=== PATIENT | female | born 1965 | race Caucasian/White ===

== ENCOUNTER 2017-04-02 07:10 | Inpatient (IN) | payer MEDICAID, SELFPAY ==
[2017-04-02] VITALS (9 sets, daily range): BP systolic 129–157; BP diastolic 76–113; PULSE 84–105; RESP 18–22; TEMP 36.7–39.3; O2SAT 92–98; BMI 25.8; BMI 27.4; BMI 27.5
--- NOTE | 2017-04-02 07:21 | RAD_ITS ---
STUDY: X-RAY CHEST REASON FOR EXAM: Female, 51 years old. Fever, chills and cough. TECHNIQUE: PA and lateral views of the chest. COMPARISON: Comparison is made with prior study dated March 19, 2017. FINDINGS: Hyperinflation. No acute infiltrate is seen. There is no demonstrated pleural abnormality. Normal size heart. Normal mediastinum and ayaz. Normal visualized pulmonary arteries. Normal visualized aortic arch and descending thoracic aorta. There are mild degenerative changes of the visualized thoracic spine. Healed left rib fractures. There is no demonstrated abnormality of the visualized soft tissue structures of the upper abdomen. RAD/Chest PA and Lateral IMPRESSION: Hyperinflation. The lungs are clear. Electronically Signed: Mono Rosas MD at 8:39 EST Tel [phone], Service support ,
[2017-04-02] MEDS: Acetaminophen 325 MG Tablet 650 MG PO ×2 (07:33→16:53)
--- NOTE | 2017-04-02 07:37 | ED.DCSUM_ITS ---
- ER Visit Summary Date of Service: 04/02/17 Chief Complaint: Right-sided abdominal pain with fever, chills and sweats History of Present Illness: The patient is a 51 F who was seen on March 19 and last evening April 01. She presented on March 19 for diarrhea and abdominal pain. She was admitted for possible colitis versus cancer versus other etiology of her abdominal pain. Yesterday she presented with severe right -sided bowel pain after coughing. There were no acute findings compared to CAT scan dated March 19. She complains of vague headache. She denies rhinorrhea, earache or sore throat. Does complain of slight cough. She is a smoker. Her cough is nonproductive. She does complain of nausea without vomiting, diarrhea or constipation. She localizes the pain to the right side. It is not midline. She denies dysuria, frequency, urgency or hematuria. She states the diarrhea has stopped. She is scheduled colonoscopy by Dr. hernandez to evaluate the circumferential rectal wall thickening. Physical Examination: Patient has chills. He is covered with a blanket. Vital signs are remarkable for a temperature of 100.2, heart rate of 105 and blood pressure of 154/113. HEENT exam is remarkable for poor dentition and dry mucosa. Her HEENT exam is otherwise unremarkable. Heart is rapid and regular without murmur, gallop or rub. Lungs revealed bibasilar rales that cleared with coughing. There is no wheezing or rhonchi noted. Abdominal exam is remarkable for a reducible midline ventral hernia that was noted on CAT scan. She has no tenderness in the right upper quadrant. She has no tenderness in the right lower quadrant. There is no CVA tenderness. No dermatologic lesions were noted. Lower extremity exam reveals no swelling, discoloration, leg vein distention, palpable cords or asymmetry. Test Results: Count is 20.4 thousand with 89 segs no bands. Platelet count is 948,000. Electrode panel is normal. UA is unremarkable. Lactate 1.1. Emergency Department Course and Treatment: To evaluate patient's fever chills cough a CBC, BMP and chest x-ray obtained. Because she complains of right lower quadrant abdominal pain and CAT scan revealed renal stone will obtain a UA. Treatment Plan: Case was discussed with Dr. Majano. She requested admission to the hospitalist service. She requested n.p.o. after midnight. Agreed with Zosyn IV piggyback. She also requested antibiotics prior to antibiotics. Plan is to perform colonoscopy tomorrow. Disposition: Med/surgical unit on the hospitalist service with consultation to Dr. Majano. Impression: 1. Abdominal pain with leukocytosis 2. Rectal/sigmoid wall thickening of uncertain etiology 3. History of illicit drug use 4. History of alcohol use 5. History of hypertension 6. History of bipolar affective disorder This note was generated with [employer] dictation software. It may contain incorrect words, spelling, and punctuation that were not noted in review of the chart prior to signing ED Disposition - Plan for ED Patient: Chief Complaint: Abd Pain Referrals: Kevin Rodriguez DO [Primary Care Provider] -
[2017-04-02] MEDS: Ketorolac 30 MG/ML Syringe IV (07:52)
[2017-04-02 07:55] LABS: Anion Gap 10 (5-15); BUN 9 mg/dL (7-18); BUN/Creat Ratio 11.5 RATIO (10-20); Calcium,Total 8.5 mg/dL (8.5-10.1); Chloride 101 mmol/L (98-107); Creatinine, Serum 0.79 mg/dL (0.55-1.02); EST Glomerular Filtration Rate 81 mL/min (>60); Est Glom Filt Rate - Afr Amer 98 mL/min (>60); Estimated Creatinine Clearance 83.08 ml/min; Glucose 104 mg/dL (70-110); Potassium 3.7 mmol/L (3.5-5.1); Sodium Level 136 mmol/L (136-145)
[2017-04-02 08:08] LABS: Lactic Acid 1.1 mmol/L (0.4-2.0)
[2017-04-02 09:05] LABS: Bacteria 0 SEEN /hpf (None Seen); Mucous, Urine 0 SEEN /hpf (<or=2+); Red Blood Cells-Urine 0 SEEN /hpf (0-5)
[2017-04-02 09:10] LABS: Color, Urine Yellow (Yellow); Glucose, Dipstick Normal (Normal); Ketone-Dipstick Negative (Negative); Leukocyte Esterase-Dipstick 25 /ul (Negative); Nitrite-Dipstick Negative (Negative); Occult Blood-Urine 10 /ul (Negative); Protein-Dipstick Negative (Negative); Urine Bilirubin Dipstick Negative (Negative); Urine Clarity Clear (Clear); Urine Urobilinogen Normal (Normal)
[2017-04-02 09:11] LABS: Squamous Epithelial Cells - UA 0-5 SEEN /hpf (5-10); White Blood Cells 0-5 SEEN /hpf (0-5)
[2017-04-02 09:55] LABS: Absolute Lymphocyte Count 0.93 X10^3/ul (0.83-4.51); Absolute Neutrophil Count 18.1 X10^3/uL (2.0-7.7); Basophil# 0.04 X10^3/uL; Basophil% 0.2 % (0-1); Eosinophil# 0.03 X10^3/uL; Eosinophils% 0.1 % (0-5); Hematocrit 34.6 % (37-47); Hemoglobin 10.3 g/dl (12.0-15.0); Lymphocyte # 0.93 X10^3/ul (4.0); Lymphocyte % 4.6 % (19-41); Mean Corp Hgb Conc 29.8 g/gl (32-36); Mean Corpuscular Hgb 19.9 pg (27.0-32.0); Mean Corpuscular Volume 66.9 fL (81-99); Mean Platelet Vol. 9.3 fl (6.2-12.0); Monocyte# 1.26 X10^3/uL; Monocyte% 6.2 % (0-10); Neutrophil # 18.12 X10^3/uL (2.7-7.7); Neutrophil % 88.7 % (47-70); RBC Distribution Width CV 18.1 % (11.6-14.6); RBC Distribution Width SD 43.4 fl (35.1-43.9); Red Blood Count 5.17 M/mm3 (4.2-5.4); White Blood Count 20.4 K/mm3 (4.4-11.0)
[2017-04-02 09:59] LABS: Differential Indicated SCAN CRITERIA MET; Platelet Count 948 K/mm3 (150-450)
[2017-04-02 10:00] LABS: Differential Comment THROMBOCYTOSIS
--- NOTE | 2017-04-02 12:02 | HP.PCM_ITS ---
Problem List (1) Microcytic anemia Status: Chronic (2) Colonic mass Status: Chronic (3) Benign essential hypertension Status: Chronic (4) Bipolar disorder Status: Chronic Qualifiers: Active/Remission status: remission status unspecified Qualified Code(s): F31.9 - Bipolar disorder, unspecified (5) Polysubstance abuse Status: Chronic (6) Tobacco use Status: Chronic History of Present Illness Date of Admission: 04/02/17 Chief Complaint: Abdominal pain The patient is a 51 y/o F w/ PMHx: Hypertension, Bipolar Disorder, Hx Polysubstance abuse (Clean for several years), Tobacco use, Living at the [facility] w/ history of ongoing rectal discomfort w/ sensation of constipation, incomplete emptying starting ~ 12/2016, intermittent blood tinged stools starting ~ 01/2017 with history of ongoing ongoing usage of laxatives and stool softners secondary to difficulties with intermittent abdominal pain with low grade temperatures, recently evaluated 03/19/17-03/20/17 for the same presentation w/ discharge to home on cipro/flagyl oral regimen w/ outpatient planned c-scope for Bx who now returns to the [facility] ED on 04/02/17 as well as the evening prior with similar complaints of ongoing abdominal discomfort, discomfort w/ her hernia, ongoing stool changes as well as intermittent blood tinged stools. In the ED work-up included T 100.2, HR 105-->99, BP 154/113-->149 /78, RR 18, 97% on RA, CBC w/ WBC 20.4 (increased from prior admission), Hgb 10.3, Plts 948 with L shift, BMP unremarkable, LA 1.1, UA unremarkable, Bld Cx x 2 obtained and pending, CT A/P without contrast from evening prior 04/01/17 w/ stable circumferential wall thickening in the rectum with differential diagnosis including neoplasm and proctitis, no perirectal fluid collection, 1.5 cm low-density lesion right hepatic lobe, nonobstructing right renal colliculi, bilateral renal cysts, epigastric abdominal wall hernia containing fat, small periumbilical hernia. In the emergency room patient administered ciprofloxacin , metronidazole, morphine, Toradol, Tylenol, normal saline. Dr. Majano, surgery, who evaluated patient prior was contacted per ED with noted plan for coloscopy. Past Medical History Past Medical History (Chronic Problems): Chronic Problems Microcytic anemia (Chronic) Colonic mass (Chronic) Benign essential hypertension (Chronic) Bipolar disorder (Chronic) Polysubstance abuse (Chronic) Tobacco use (Chronic) Allergies bee venom protein (honey bee) Allergy (Verified 04/01/17 17:14) Anaphylaxis codeine Allergy (Verified 04/01/17 17:14) Anaphylaxis Penicillins Allergy (Verified 04/01/17 17:14) Unknown Home Medications: Ambulatory Orders Medication Instructions Recorded Dicyclomine HCl [Bentyl] 20 mg PO TIDAC #20 capsule 02/18/17 Lidocaine 2% Jelly [Xylocaine 2% 5 ml TOPICAL 4X/DAY #10 tube 02/18/17 Jelly] Magnesium Citrate [Citrate Of 300 ml PO X1 #300 ml 02/18/17 Magnesia] Surgical History: - - Bilateral tubal ligation, history of trauma with severe fall with 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 - *Family History Maternal History Items: - - Notes a maternal family history of cancer and she states history of brain tumor as well as lung tumor with unclear primary. Paternal History Items: No pertinent history Review of Systems Constitutional: Reports: Malaise, Weakness, Fatigue. Denies: Chills, Fever, Weight Change HEENT: Reports: Sinus Congestion. Denies: Head Aches, Sinus Drainage Cardiovascular: Denies: Chest Pain, Palpitations Respiratory: Denies: Cough, Shortness of breath at rest, Sputum production Gastrointestinal: Reports: Abdominal Pain, Constipation, Diarrhea, - - Blood tinged stools., - - Ongoing rectal pain.. Denies: Nausea, Vomiting Genitourinary: Denies: Dysuria Musculoskeletal: Denies: Joint Pain, Joint Tenderness Skin: Denies: Rash, Wounds Neurological: Denies: Numbness, Tingling, Focal weakness Psychiatric: Reports: Anxiety, Depression. Denies: Homicidal Ideations, Suicidal Ideations Hematologic/ Lymphatic: Reports: Anemia. Denies: Easy Bruising, Easy Bleeding VTE Information - Inpt Only VTE Present on Admission: No VTE Mechan Device Prophylaxis: SCD's VTE Pharm Prophylaxis ordered?: No Reason prophylaxis not ordered:: Medical Contraindication Subjective: Seated upright in bed, notes ongoing mild abdominal cramping pain. Objective: Physical Examination: General: awake, alert, oriented x 3 and cooperative, seated upright in the bed in no apparent distress. Skin: normal color, turgor, no icterus, cyanosis except diffuse facial and extremity picked regions, healing, non-infected appearing. HEENT: AT/NC, EOMI, PERRLA, dry MM, no carotid bruits or JVD noted. Lungs: Diminished breath sounds bilaterally, greater bases, moderate effort, no rales, ronchi or wheezing. Heart: regular rate and rhythm; no gallop, rub audible. Abdomen: soft, overweight, NTTP despite current cramping pain complaint, ND, normal BS, no HSM however habitus makes examination difficult. Extremities: no cyanosis, clubbing, or edema. Neurological: patient awake, alert, oriented x 3; cognitive function intact; pupils equally reactive to light and accomodation; cranial nerves II-XII grossly normal, moving all 4 extremities, no focal deficits, strength moderately globally decreased secondary to acute presentation. Psychiatric: affect appears normal, no acute evidence of depressive or anxiety feelings. - Physical Exam Vital Signs Temp Pulse Resp BP Pulse Ox 98.1 F 84 18 157/76 H 97 04/02/17 10:41 04/02/17 10:41 04/02/17 10:41 04/02/17 10:41 04/02/17 10:41 Oxygen Delivery Method Room Air Weight: 170 lb Body Mass Index (BMI) 25.8 Laboratory Tests Past 24 Hrs 04/02/17 04/02/17 04/02/17 07:25 07:25 07:25 WBC 20.4 H RBC 5.17 Hgb 10.3 L Hct 34.6 L MCV 66.9 L MCH 19.9 L MCHC 29.8 L RDW 18.1 H RDW Differential 43.4 Plt Count 948 H* MPV 9.3 Immature Gran % (Auto) 0.200 Neut % (Auto) 88.7 H Lymph % (Auto) 4.6 L [place] % (Auto) 6.2 Eos % (Auto) 0.1 Baso % (Auto) 0.2 Absolute Neuts (auto) 18.1 H Absolute Lymphs (auto) 0.93 Total Counted Pending Differential Comment THROMBOCYTOSIS Sodium 136 Potassium 3.7 Chloride 101 Carbon Dioxide 25.0 Anion Gap 10 BUN 9 Creatinine 0.79 Estim Creat Clear Calc 83.08 Est GFR (MDRD) Af Amer 98 Est GFR (MDRD) Non-Af 81 BUN/Creatinine Ratio 11.5 Glucose 104 Lactic Acid 1.1 Calcium 8.5 Urine Color Urine Clarity Urine pH Ur Specific [place] Urine Protein Urine Glucose (UA) Urine Ketones Urine Occult Blood Urine Nitrite Urine Bilirubin Urine Urobilinogen Ur Leukocyte Esterase Urine RBC Urine WBC Ur Squamous Epith Cells Urine Bacteria Urine Mucus 04/02/17 09:00 WBC RBC Hgb Hct MCV MCH MCHC RDW RDW Differential Plt Count MPV Immature Gran % (Auto) Neut % (Auto) Lymph % (Auto) [place] % (Auto) Eos % (Auto) Baso % (Auto) Absolute Neuts (auto) Absolute Lymphs (auto) Total Counted Differential Comment Sodium Potassium Chloride Carbon Dioxide Anion Gap BUN Creatinine Estim Creat Clear Calc Est GFR (MDRD) Af Amer Est GFR (MDRD) Non-Af BUN/Creatinine Ratio Glucose Lactic Acid Calcium Urine Color Yellow Urine Clarity Clear Urine pH 6.0 Ur Specific [place] 1.010 Urine Protein Negative Urine Glucose (UA) Normal Urine Ketones Negative Urine Occult Blood 10 H Urine Nitrite Negative Urine Bilirubin Negative Urine Urobilinogen Normal Ur Leukocyte Esterase 25 H Urine RBC 0 SEEN Urine WBC 0-5 SEEN Ur Squamous Epith Cells 0-5 SEEN Urine Bacteria 0 SEEN Urine Mucus 0 SEEN Assessment/Plan The patient is a 51 y/o F w/ PMHx: Hypertension, Bipolar Disorder, Hx Polysubstance abuse, Tobacco use, Living at the [facility] w/ recent admission 03/19/17-03/20/17 for the same presentation w/ discharge to home on cipro/flagyl oral regimen w/ outpatient planned c-scope for Bx who now returns to the [facility] ED on 04/02/17 as well as the evening prior with similar complaints of ongoing abdominal discomfort, discomfort w/ her hernia, ongoing stool changes as well as intermittent blood tinged stools. (1) ? Colitis, Suspected Rectal CA: Will admit to [facility], maintain on hydration, monitor I&Os, maintain NPO status w/ bowel rest, treat with cipro and flagyl regimen, PPI, anti-emetics, pain regimen PRN. Dr. Majano, Surgery consulted with planned c-scope evaluation and Bx mass. Given re-presentation and ongoing leukocytosis w/ ? colitis with elevated T, will also request ID evaluation. (2) Microcytic anemia, Unclear Chronicity, Fe Deficiency: Admission Hgb 10.3, stable from prior, discharged recently on Fe supplementation which will be continued, pending c-scope as noted. (3) Hypertension: Not on regimen, BP elevated upon ED presentation, will initiate low dose ACEI, PRN hydralazine. (4) Tobacco Abuse: Encouraged cessation, inpatient consultation per RT, NR if desired. (5) History of polysubstance abuse: Clean for approximately 5 years, encouraged continued clean status. (6) Bipolar disorder: not on regimen, encouraged outpatient therapy. (7) DVT prophylaxis: SCDs, defer chemoprophylaxis given anemia, GI presentation w/ pending endoscopy and likely Bx. (8) Social: Homeless status, CM consulted to assist to assure appropriate follow -up. Code Visit Inpatient E&M: 60243 Init Hosp L3
[2017-04-02 13:01] LABS: Lactic Acid 0.7 mmol/L (0.4-2.0)
--- NOTE | 2017-04-02 13:12 | CASEMGMT ---
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 Pt lives @ [facility], is Homeless. SW referral for dc planning. Nursing is in room w/pt then she will be going to testing. Pharmacy not listed, will need to confirm which pharmacy she uses. Jose DEAL BSN ACM
[2017-04-02] MEDS: Ondansetron 4 MG/2 ML Vial IV (13:45)
[2017-04-02] MEDS: 0.9% Normal Saline 1,000 ML 125 ML IV (13:46)
[2017-04-02] MEDS: Lisinopril 10 MG Tablet PO (13:53)
[2017-04-02] MEDS: oxyCODONE 5 MG Tablet PO (16:49)
[2017-04-02] MEDS: Pantoprazole Sodium 40 MG Tablet PO (16:51)
--- NOTE | 2017-04-02 17:05 | NURSING ---
DR PEREIRA ON UNIT AND UPDATED ON PT FEVER
--- NOTE | 2017-04-02 17:19 | CON.PCM_ITS ---
- Consult Date of Consult: 04/02/17 - Reason for Consult Chief Complaint: abdominal pain, rectal bleeding, change in bowel habits, fevers, elevated WBC History of Present Illness: 51 y/o WF presents with abdominal pain and thinks she has strained a hernia. I had seen patient on and had recommended colonoscopy. she did not want one at the time and wanted to spend the holiday with her friends and family. I had tried to get patient scheduled for outpatient colonoscopy, but due to her personal living situation, this was difficult. She presents with complaint of chills/fevers. Found to have elevated WBC. Still with rectal bleeding and irregular bowel movements. Past Medical History: Denies major medical illnesses such as hypertension or diabetes Past Surgical History: Exploratory laparotomy for blunt trauma - major artery cut in my stomach, almost , induced coma for 21 days - splenectomy, fracture of 9 ribs Tubes tied LEEP procedure Medications: tylenol prn phenergan prn oxyir flagyl cipro iron supplements Allergies: codeine penicillins Social history: TOB use 1-2 packs per day for 40 years, trying to quit - down to 1 pack every 3 -4 days ETOH use history of heavy ETOH abuse - cut down for the past 5 years Review of Systems: General - has noted low grade subjective temperature elevations, denies rigors Cardiovascular denies chest pain, denies history of NM Pulmonary has chronic cough, denies hemoptysis Gastrointestinal as per HPI Neurological denies seizures Genitourinary denies burning with urination, denies blood in urine Hematological denies spontaneous/prolonged bleeding, had blood transfusions with above trauma Skin denies open non healing wounds Musculoskeletal has had rib fractures Endocrine denies diabetes Psychological stressors - lives at [facility]! Physical examination: Vital signs Temp 100.4F RR 18 BP 152/102 HR 74 Ht: 5'8 Wt 179# General WD/WN WF in no apparent distress, alert and oriented HEENT Normocephalic. EOM intact with sclera clear and no icterus noted. Neck is supple with no jugular venous distention noted. Trachea is midline. Has sniffles Lungs normal breath sounds with some crackles at bases and periphery. No labored breathing noted, such as retractions. occasional cough. Heart normal heart sounds, regular rate Abdomen soft and benign but generalized tenderness in bilateral lower quadrants with no peritoneal signs noted. Healed midline abdominal incision - reducible incisional hernia to right lateral. Normal bowel sounds. Extremities no calf tenderness noted. No pitting edema noted. Genitourinary/Rectal palpable almost circumferential hard mass from level of anal canal extending a few centimeters proximally Skin normal skin integrity Neurological non focal Psychological normal affect, patient appears to be itching constantly WBC - 20k, Hct 34.8, Plt 661K, serum iron and saturation is low, LFTs normal , lactic acid normal Impression: rectal mass elevated WBC - unknown etiology Discussion/Plan: I have discussed the above with the patient. The patient has a rectal mass, concern for malignancy. I have recommended further evaluation with colonoscopy with biopsy. She had been scheduled as outpatient. I have counseled patient as to risks of colonoscopy, including but not limited to: infection, bleeding, injury to any blood vessels/nerves, injury to any intraabdominal organs such as liver/spleen, perforation of GI tract, complications of anesthesia, inabililty to complete the procedure, etc - she understands. She agrees to proceed. I have answered all questions to the patients satisfaction and the patient has no further questions.
[2017-04-02] MEDS: HYDROmorphone 1 MG/ML Syringe IV (20:44)
[2017-04-02] MEDS: 0.9% NaCl Peripheral Flush Adult/Peds IV (20:44)
[2017-04-02] MEDS: Ciprofloxacin 400 MG/200 ML BAG 200 MG IV (21:11)
[2017-04-02] MEDS: Electrolyte Solution/Peg's 4000 ML 2000 ML PO (21:13)
[2017-04-03] VITALS (11 sets, daily range): BP systolic 118–154; BP diastolic 71–98; PULSE 70–82; RESP 16–19; TEMP 36.3–37.6; O2SAT 94–97; BMI 28.2
--- NOTE | 2017-04-03 | COLBX_PTH ---
PATIENT: YONIS DAMON LOC: MS2 U#:[id number] AGE/SX: 51/F ROOM: [facility] [place]04/02/[address]: Dr. Natalee Mehta MD : 1965 BED: 1 DIS: 04/04/2017 SPEC #: [id number] RECD: 04/03/17 17:45 STATUS: LAMIN REQ #: [id number] AMADEO: 04/03/17 00:[address]: Aleena Majano DEPT: SURGICAL PATHOLOGY RECD BY: Tim Solares ENTERED: 04/04/17 10:25 SP TYPE: COLON BX OTHR DR: MD Dr. Kevin Larsen DO Dr. 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 AM:omar 04/07/17 MICROSCOPIC DESCRIPTION Slides are reviewed. GROSS DESCRIPTION Received in fixative is one container labeled with the patient's name and designated biopsy, rectal mass. The specimen consists of multiple irregular fragments of light green soft tissue that in aggregate measure 1 x 0.5 x 0.1 cm. The specimen is totally submitted in one cassette. / AM:omar 04/04/17 TC:0 CPT: 31938
[2017-04-03] MEDS: oxyCODONE 5 MG Tablet PO ×3 (01:00→21:50)
[2017-04-03] MEDS: Ondansetron 4 MG/2 ML Vial IV ×3 (01:00→21:50)
[2017-04-03] MEDS: 0.9% NaCl Peripheral Flush Adult/Peds IV ×6 (01:00→23:47)
[2017-04-03] MEDS: 0.9% Normal Saline 1,000 ML 125 ML IV ×3 (02:52→18:13)
[2017-04-03] MEDS: Electrolyte Solution/Peg's 4000 ML 2000 ML PO (05:07)
--- NOTE | 2017-04-03 06:00 | EKG12_ITS ---
Test Reason : Blood Pressure : / mmHG Vent. Rate : 072 BPM Atrial Rate : 072 BPM P-R Int : 172 ms QRS Dur : 104 ms QT Int : 440 ms P-R-T Axes : 065 085 067 degrees QTc Int : 481 ms Normal sinus rhythm Prolonged QT Abnormal ECG Confirmed by JASWANT MELLO, ANN ([id number]), bioinformatics software engineer DENI SWEENEY ([id number]) on 04/11/2017 3:20:45 PM Referred By: Confirmed By:ANN MICHAUD MD
--- NOTE | 2017-04-03 06:31 | PN_ITS ---
Subjective: Patient overnight with continued intermittent elevated temperatures and chills, improved mildly this morning. She notes ongoing abdominal cramping discomfort is worsened with GoLYTELY prep. Stressed importance of continued appropriate prep intake and if needed more prep addition if not running clear with plans colonoscopy late afternoon. She notes that she still is living at the [facility]. Patient denies emesis, chest pain or dyspnea Objective: Physical Examination: General: awake, alert, oriented x 3 and cooperative, seated upright in the bed in no apparent distress. Skin: normal color, turgor, no icterus, cyanosis except diffuse facial and extremity picked regions, healing, non-infected appearing. HEENT: AT/NC, EOMI, PERRLA, dry MM. Lungs: Diminished breath sounds bilaterally, greater bases, moderate effort, no rales, ronchi or wheezing. Heart: Regular rate and rhythm; no gallop, rub audible. Abdomen: soft, overweight, no marked pain with palpation, no grimacing, mildly distended, hyperactive BS distantly. Extremities: no cyanosis, clubbing, or edema. Neurological: patient awake, alert, oriented x 3; cognitive function intact; pupils equally reactive to light and accomodation; cranial nerves II-XII grossly normal, moving all 4 extremities, no focal deficits, strength moderately to severely globally decreased secondary to acute presentation. Psychiatric: affect appears normal, no acute evidence of depressive or anxiety feelings. Vitals/I&O's: Vital Signs Temp Pulse Resp BP Pulse Ox 97.3 F L 82 18 130/77 H 96 04/03/17 02:45 04/03/17 02:45 04/03/17 02:45 04/03/17 02:45 04/03/17 02:58 Oxygen Delivery Method Room Air Weight: 185 lb 10.067 oz Body Mass Index (BMI) 27.4 Intake and Output for Last 24 Hours 04/01/17 04/02/17 04/03/17 23:59 23:59 23:59 Intake Total 5157 / 5157 836 / 836 Output Total 200 / 200 Balance 4957 / 4957 836 / 836 Laboratory Results 04/02/17 12:20: Lactic Acid 0.7 04/03/17 05:52: WBC Pending, RBC Pending, Hgb Pending, Hct Pending, MCV Pending , MCH Pending, MCHC Pending, RDW Pending, RDW Differential Pending, Plt Count Pending, Neut % (Auto) Pending, Absolute Neuts (auto) Pending, Total Counted Pending 04/03/17 05:52: Sodium Pending, Potassium Pending, Chloride Pending, Carbon Dioxide Pending, Anion Gap Pending, BUN Pending, Creatinine Pending, Est GFR ( MDRD) Af Amer Pending, Est GFR (MDRD) Non-Af Pending, BUN/Creatinine Ratio Pending, Glucose Pending, Calcium Pending Current Medications Acetaminophen (Tylenol) 650 mg PO Q6H PRN PRN PRN Reason: Mild Pain (scale 0-3)/T>100.7 Last Admin: 04/02/17 16:53 Dose: 650 mg [facility] Last Admin: 04/02/17 16:50 Dose: Not Given Hydralazine HCl (Apresoline) 10 mg IV Q4H PRN PRN PRN Reason: SBP > 160 Hydromorphone HCl (Dilaudid) 0.5 - 1 mg IV Q3H PRN PRN PRN Reason: SEVERE PAIN (6-10/10) Last Admin: 04/02/17 20:44 Dose: 1 mg Sodium Chloride () 1,000 mls @ 125 mls/hr IV .Q8H [facility] Last Admin: 04/03/17 02:52 Dose: 125 mls/hr Ciprofloxacin (Cipro) 400 mg in 200 mls @ 200 mls/hr IV Q12 [facility] Last Admin: 04/02/17 21:11 Dose: 200 mls/hr Metronidazole (Flagyl) 500 mg in 100 mls @ 100 mls/hr IV Q8H [facility] Last Admin: 04/03/17 05:07 Dose: 100 mls/hr Lisinopril (Zestril) 10 mg PO DAILY [facility] Last Admin: 04/02/17 13:53 Dose: 10 mg Magnesium Hydroxide (Milk Of Magnesia) 30 ml PO DAILY PRN PRN PRN Reason: Constipation Morphine Sulfate (Morphine) 4 - 6 mg IV Q3H PRN PRN PRN Reason: SEVERE PAIN (6-10/10) Last Admin: 04/03/17 05:06 Dose: 4 mg Nicotine (Nicoderm Cq (Pbkc)) 21 mg TRANSDERM. DAILY [facility] Last Admin: 04/02/17 16:50 Dose: 21 mg Ondansetron HCl (Zofran) 4 mg IV Q8H PRN PRN PRN Reason: Nausea Last Admin: 04/03/17 01:00 Dose: 4 mg Oxycodone HCl (Oxyir) 5 - 10 mg PO Q4H PRN PRN PRN Reason: Moderate Pain (pain scale 4-5) Last Admin: 04/03/17 01:00 Dose: 10 mg Pantoprazole Sodium (Protonix) 40 mg PO DAILY TO Last Admin: 04/02/17 16:51 Dose: 40 mg Sodium Chloride () 5 - 30 ml IV UD PRN PRN Reason: SALINE FLUSH Last Admin: 04/03/17 05:07 Dose: 10 ml Sodium Chloride/Electrolytes (Nulytely) 2,000 ml PO Q9H TO Stop: 04/03/17 08:00 Last Admin: 04/03/17 05:07 Dose: 2,000 ml Assessment/Plan The patient is a 51 y/o F w/ PMHx: Hypertension, Bipolar Disorder, Hx Polysubstance abuse, Tobacco use, Living at the [facility] w/ recent admission 03/19/17-03/20/17 for the same presentation w/ discharge to home on cipro/flagyl oral regimen w/ outpatient planned c-scope for Bx who now returns to the [facility] ED on 04/02/17 as well as the evening prior with similar complaints of ongoing abdominal discomfort, discomfort w/ her hernia, ongoing stool changes as well as intermittent blood tinged stools. (1) ? Colitis, Suspected Rectal CA: Admitted to [facility], maintained on hydration, monitor I&Os, maintain NPO status w/ bowel rest for planned c-scope today, continue cipro and flagyl regimen, PPI, anti-emetics, pain regimen PRN. Dr. Majano , Surgery consulted with planned c-scope evaluation this AM w/ Bx mass. Tm overnight 102.7, Bld Cx pending. ID consulted, pending given atypical presentation. 04/03/17 CBC w/ WBC 12 with shift. (2) Microcytic anemia, Unclear Chronicity, Fe Deficiency: Admission Hgb 10.3, stable from prior, discharged recently on Fe supplementation, continued, pending c-scope as noted. 04/03/17 Hgb pending. (3) Hypertension: Not on regimen, BP elevated upon ED presentation, initiated low dose ACEI, improved BP, PRN hydralazine. (4) Tobacco Abuse: Encouraged cessation, inpatient consultation per RT, NR if desired. (5) History of polysubstance abuse: Clean for approximately 5 years, encouraged continued clean status. (6) Bipolar disorder: not on regimen, encouraged outpatient therapy. (7) DVT prophylaxis: SCDs, defer chemoprophylaxis given anemia, GI presentation w/ pending endoscopy and likely Bx. (8) Social: Homeless status, CM consulted to assist to assure appropriate follow -up. Code Visit Inpatient E&M: 41692 Subs Hosp L2
[2017-04-03 06:39] LABS: Absolute Lymphocyte Count 2.01 X10^3/ul (0.83-4.51); Absolute Neutrophil Count 8.3 X10^3/uL (2.0-7.7); Basophil# 0.06 X10^3/uL; Basophil% 0.5 % (0-1); Eosinophil# 0.07 X10^3/uL; Eosinophils% 0.6 % (0-5); Hematocrit 29.8 % (37-47); Hemoglobin 8.9 g/dl (12.0-15.0); Lymphocyte # 2.01 X10^3/ul (4.0); Lymphocyte % 16.8 % (19-41); Mean Corp Hgb Conc 29.9 g/gl (32-36); Mean Corpuscular Hgb 19.8 pg (27.0-32.0); Mean Corpuscular Volume 66.2 fL (81-99); Mean Platelet Vol. 9.8 fl (6.2-12.0); Monocyte# 1.56 X10^3/uL; Neutrophil # 8.28 X10^3/uL (2.7-7.7); Neutrophil % 68.9 % (47-70); RBC Distribution Width CV 18.7 % (11.6-14.6); RBC Distribution Width SD 43.3 fl (35.1-43.9)
[2017-04-03 06:41] LABS: Differential Indicated SCAN CRITERIA MET; POSITIVE COUNT YES; POSITIVE DIFFERENTIAL YES; POSITIVE MORPHOLOGY YES; Platelet Count 890 K/mm3 (150-450)
[2017-04-03 07:07] LABS: Anion Gap 8 (5-15); BUN 8 mg/dL (7-18); BUN/Creat Ratio 11.8 RATIO (10-20); Calcium,Total 7.9 mg/dL (8.5-10.1); Chloride 104 mmol/L (98-107); Creatinine, Serum 0.68 mg/dL (0.55-1.02); EST Glomerular Filtration Rate 97 mL/min (>60); Est Glom Filt Rate - Afr Amer 117 mL/min (>60); Estimated Creatinine Clearance 96.52 ml/min; Glucose 88 mg/dL (70-110); Potassium 3.7 mmol/L (3.5-5.1); Sodium Level 137 mmol/L (136-145)
[2017-04-03 07:16] LABS: Differential Comment SCAN
--- NOTE | 2017-04-03 07:55 | PCM.HP.ID ---
Reason for Consult: Fever leukocytosis and concern of colitis History of Present Illness: The patient is a 51 year old F [] This is a 51-year-old white female with ongoing gastrointestinal issues mainly rectal pain diarrhea with intermittent constipation for the past 9 months. She has been having intermittent fevers for the past 2 weeks and worsening rectal pain. Unfortunately patient has been homeless and has not seek medical attention. She was briefly hospitalized last month for gastrointestinal issues missed mainly rectal pain. A recent CT scan of the abdomen pelvis showed abnormalities in the rectal tissue with concern of either a malignancy or proctitis she had intermittent fevers. No cardiopulmonary distress. She was placed on ciprofloxacin and metronidazole empirically. She was seen by Dr. Majano general surgery for her rectal pain and is scheduled for diagnostic colonoscopy. She does have a marked leukocytosis profound anemia and a marked thrombocytosis. - Medical History Past Medical History (Chronic Problems): Chronic Problems Microcytic anemia (Chronic) Colonic mass (Chronic) Benign essential hypertension (Chronic) Bipolar disorder (Chronic) Polysubstance abuse (Chronic) Tobacco use (Chronic) Allergies/Adverse Reactions: Allergies bee venom protein (honey bee) Allergy (Verified 04/01/17 17:14) Anaphylaxis codeine Allergy (Verified 04/01/17 17:14) Anaphylaxis Penicillins Allergy (Verified 04/01/17 17:14) Unknown Home Medications: Ambulatory Orders Medication Instructions Recorded Dicyclomine HCl [Bentyl] 20 mg PO TIDAC #20 capsule 02/18/17 Lidocaine 2% Jelly [Xylocaine 2% 5 ml TOPICAL 4X/DAY #10 tube 02/18/17 Jelly] Magnesium Citrate [Citrate Of 300 ml PO X1 #300 ml 02/18/17 Magnesia] Vital Signs Temp Pulse Resp BP Pulse Ox 97.3 F L 82 18 130/77 H 96 04/03/17 02:45 04/03/17 02:45 04/03/17 02:45 04/03/17 02:45 04/03/17 02:58 Oxygen Delivery Method Room Air Weight: 84.2 kg Body Mass Index (BMI) 27.4 Laboratory Tests Past 24 Hrs 04/02/17 04/03/17 04/03/17 12:20 05:52 05:52 WBC 12.0 H RBC 4.50 Hgb 8.9 L Hct 29.8 L MCV 66.2 L MCH 19.8 L MCHC 29.9 L RDW 18.7 H RDW Differential 43.3 Plt Count 890 H* MPV 9.8 Immature Gran % (Auto) 0.200 Neut % (Auto) 68.9 Lymph % (Auto) 16.8 L [place] % (Auto) 13.0 H Eos % (Auto) 0.6 Baso % (Auto) 0.5 Absolute Neuts (auto) 8.3 H Absolute Lymphs (auto) 2.01 Total Counted Not Reportable Differential Comment SCAN Diff Path Review May foll Sodium 137 Potassium 3.7 Chloride 104 Carbon Dioxide 25.0 Anion Gap 8 BUN 8 Creatinine 0.68 Estim Creat Clear Calc 96.52 Est GFR (MDRD) Af Amer 117 Est GFR (MDRD) Non-Af 97 BUN/Creatinine Ratio 11.8 Glucose 88 Lactic Acid 0.7 Calcium 7.9 L - Other Studies Radiology: [] Other Studies: [] Route of nutrition/ use of supplements: [] Nutritional Intake: [] IV Site: [] Hinojosa Catheter: [] Patient is alert and oriented does not appear acutely ill head and neck exams unremarkable lungs are clear heart exam S1-S2 abdomen is tender but soft no peritoneal signs positive bowel sounds. Laboratory studies reviewed blood culture data pending - Assessment/Plan Antibiotics: [] Assessment/Plan: [] Fever and leukocytosis and rectal pain with plans for diagnostic colonoscopy later today. At this point we will continue ciprofloxacin and metronidazole and follow her clinically. Continue supportive care.
[2017-04-03] MEDS: Ferrous Sulfate 325 MG Tablet PO ×2 (08:08→18:11)
[2017-04-03] MEDS: Lisinopril 10 MG Tablet PO (08:08)
[2017-04-03] MEDS: Pantoprazole Sodium 40 MG Tablet PO (08:08)
[2017-04-03] MEDS: Ciprofloxacin 400 MG/200 ML BAG 200 MG IV ×2 (10:11→21:53)
--- NOTE | 2017-04-03 11:55 | CASEMGMT ---
Social Work Face to face with pt to discuss discharge planning. Introduced self and role at [facility]. The pt reports that she has been staying at [facility] for nearly 2 and a half months. Denies that they are assisting her with finding or locating housing. Claims that they have promised to help her find a place, assist with first months rent, and so far have not followed through. 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 Pt did have [facility] at one point, but claims that its since lapsed without her knowledge. She has not reapplied and SW encouraged her to knot picker cloth a form from [facility]. Pt [facility] have [facility] and receives food stamps. She had a counselor at [facility] for 10 years, but is not currently active with their care. Pt denies need for this presently. Pt finds support in her significant other who also resides at the [facility] and in her scientology mormonism. PCP is Dr. Rodriguez and her pharmacy is [facility]. Pt intends on returning to the [facility] at discharge and is hopeful that the surgeon will have a need to keep her one more night as she will need to be out on the street from 8:00-16:30 tomorrow morning despite her colonoscopy and biopsy d/t [facility] protocol. Support provided and encouraged the pt to discuss these concerns further with the surgeon when she comes in this afternoon. Understanding expressed, pt denies any further needs and is made aware that SW is available if needs arise. Plan: Return to [facility] at time of discharge. JANE Gustafson
--- NOTE | 2017-04-03 15:32 | NURSING ---
REPORT CALLED TO TOYIN SHARP IN A.C.
--- NOTE | 2017-04-03 17:22 | OP.PCM_ITS ---
Report of Operation Date of Procedure: 04/03/17 Pre-Operative Diagnosis: rectal mass Post-Operative Diagnosis: same Surgery/Procedure Performed:: colonoscopy with biopsies Description of Surgical Findings:: distal friable rectal mass - right up to dentate line - circumferential, biopsies taken using cold grasper forceps Type of Anesthesia:: MAC Anesthesiologist: Devin Vines Specimen's removed: biopsies of rectal mass Estimated Blood Loss (mL): < 10 Fluids Replaced: see anesthesia note Description of Procedure: After informed consent was given, the patient was brought to the endoscopy suite and placed in the supine position. Appropriate time out protocol was followed. Appropriate cardiac, blood pressure, and pulse oximetry monitoring was placed. After stable vital signs were noted, the patient was given intravenous conscious sedation by the anesthesia provider. The patient was then placed in the left lateral decubitis position. The colonoscope was lubricated and carefully inserted into the patient?s anus. It was then advanced into the rectum, then into the sigmoid colon, then into the left descending colon, past the splenic flexure, into the transverse colon, past the hepatic flexure, then down into the right descending colon and into the cecum. The cecum was identified by: transillumination, confluence of the tenae coli, identification of the ileocecal valve and appendiceal orifice, and external pressure with indentation. At this point, the colonoscope was slowly retracted back and the entire colonic mucosa was examined. The colon cleansing preparation was suboptimal, however, other than the rectal lesion - no other obvious lesions were noted. Patient did have pandiverticulosis. There was distal friable rectal mass - 1-2 cm in thickness - right up to dentate line - circumferential, biopsies were taken using cold grasper forceps. The colonoscope was removed intact. Perianal skin appeared normal, there was an external hemorrhoid tag noted. Patient tolerated procedure well. - Complications none noted - Admit VTE Documentation VTE Present on Admission: Yes VTE Pharm Prophylaxis ordered?: Yes
[2017-04-03] MEDS: Acetaminophen 325 MG Tablet 650 MG PO (18:10)
--- NOTE | 2017-04-04 00:13 | NURSING ---
Sat with patient for 20 minutes in room allowing her to express concerns about life. Patient is very upset with [facility] and the resources that they provide. Claims food and clothing is sent to [place] rather than being provided to those in need at [facility]. Patient states she is almost out of her 90 days and is considering moving to [place] with significant other but does not know where she will live after . Reports she is 7 years sober from drugs but did have a relapse during that time, expressed interest in new vision program for others at , had never heard of program before this hospitalization. Patient upset with social work and justice system because she cannot hope to afford rent, and food stamps do not provide enough money for supplies. Has been on food stamps since 2003 per pt. Patient spoke of place in [place] that she is familiar with that offers resources. I offered information on resource in [place]: [facility] to patient. Patient related to this nurse that her michelle is what helps her during these times. She wishes to help mentor other women who are in need.
[2017-04-04] MEDS: 0.9% Normal Saline 1,000 ML 125 ML IV ×2 (04:44→13:55)
[2017-04-04] MEDS: Acetaminophen 325 MG Tablet 650 MG PO (04:44)
[2017-04-04] MEDS: oxyCODONE 5 MG Tablet PO (04:44)
[2017-04-04 04:46] VITALS: BP 113/73; PULSE 76; RESP 18; TEMP 36.8; O2SAT 95
--- NOTE | 2017-04-04 06:20 | PCM.PN.HOSP ---
Subjective: Patient overnight with improvement of pain and eager for diet transition. She denies any nausea or emesis. She remained afebrile overnight although did have low-grade temperature yesterday afternoon. Reviewed labs with patient and these have improved. Discussed findings on c-scope from day prior at length and patient tearful following. She noted willingness to only have evaluation locally currently secondary to need for support who is in [place] only and unable to travel to [facility] which had been initially discussed per Dr. Majano to assure appropriate follow-up plan. Patient denies fevers, chills, nausea, emesis, chest pain or dyspnea. Objective: Physical Examination: General: awake, alert, oriented x 3 and cooperative, seated upright in the bed in no apparent distress. Skin: normal color, turgor, no icterus, cyanosis. HEENT: AT/NC, EOMI, PERRLA, improved MMM. Lungs: Diminished breath sounds bilaterally, greater bases, moderate effort, no rales, ronchi or wheezing. Heart: Regular rate and rhythm; no gallop, rub audible. Abdomen: soft, overweight, NTTP, mildly lessened distention, normalized BS. Extremities: no cyanosis, clubbing, or edema. Neurological: patient awake, alert, oriented x 3; cognitive function intact; pupils equally reactive to light and accomodation; cranial nerves II-XII grossly normal, moving all 4 extremities, no focal deficits, strength improved, moderately globally decreased secondary to acute presentation. Psychiatric: affect appears tearful, anxious following discussion re: rectal mass and next step in evaluation, no acute evidence of depressive feelings. Vitals/I&O's: Vital Signs Temp Pulse Resp BP Pulse Ox 98.2 F 76 18 113/73 95 04/04/17 04:46 04/04/17 04:46 04/04/17 04:46 04/04/17 04:46 04/04/17 04:46 Oxygen Delivery Method Room Air Weight: 194 lb 3.636 oz Body Mass Index (BMI) 28.2 Intake and Output for Last 24 Hours 04/02/17 04/03/17 04/04/17 23:59 23:59 23:59 Intake Total 5157 / 5157 4334 / 4334 1176 / 1176 Output Total 200 / 200 Balance 4957 / 4957 4334 / 4334 1176 / 1176 Laboratory Results 04/03/17 05:52: WBC 12.0 H, RBC 4.50, Hgb 8.9 L, Hct 29.8 L, MCV 66.2 L, MCH 19.8 L, MCHC 29.9 L, RDW 18.7 H, RDW Differential 43.3, Plt Count 890 H*, MPV 9.8, Immature Gran % (Auto) 0.200, Neut % (Auto) 68.9, Lymph % (Auto) 16.8 L, [place] % (Auto) 13.0 H, Eos % (Auto) 0.6, Baso % (Auto) 0.5, Absolute Neuts (auto) 8.3 H, Absolute Lymphs (auto) 2.01, Total Counted Not Reportable, Differential Comment SCAN, Diff Path Review August04/03/17 05:52: Sodium 137, Potassium 3.7, Chloride 104, Carbon Dioxide 25.0, Anion Gap 8, BUN 8, Creatinine 0.68, Estim Creat Clear Calc 96.52, Est GFR (MDRD) Af Amer 117, Est GFR (MDRD) Non-Af 97, BUN/Creatinine Ratio 11.8, Glucose 88, Calcium 7.9 L 04/04/17 05:45: WBC Pending, RBC Pending, Hgb Pending, Hct Pending, MCV Pending, MCH Pending, MCHC Pending, RDW Pending, RDW Differential Pending, Plt Count Pending, Neut % (Auto) Pending, Absolute Neuts (auto) Pending, Total Counted Pending 04/04/17 05:45: Sodium Pending, Potassium Pending, Chloride Pending, Carbon Dioxide Pending, Anion Gap Pending, BUN Pending, Creatinine Pending, Est GFR (MDRD) Af Amer Pending, Est GFR (MDRD) Non-Af Pending, BUN/Creatinine Ratio Pending, Glucose Pending, Calcium Pending Current Medications Acetaminophen (Tylenol) 650 mg PO Q6H PRN PRN PRN Reason: Mild Pain (scale 0-3)/T>100.7 Last Admin: 04/04/17 04:44 Dose: 650 mg Ferrous Sulfate (Ferrous Sulfate) 325 mg PO BIDCM TO Last Admin: 04/03/17 18:11 Dose: 325 mg Hydralazine HCl (Apresoline) 10 mg IV Q4H PRN PRN PRN Reason: SBP > 160 Hydromorphone HCl (Dilaudid) 0.5 - 1 mg IV Q3H PRN PRN PRN Reason: SEVERE PAIN (6-10/10) Last Admin: 04/02/17 20:44 Dose: 1 mg Sodium Chloride () 1,000 mls @ 125 mls/hr IV .Q8H [facility] Last Admin: 04/04/17 04:44 Dose: 125 mls/hr Ciprofloxacin (Cipro) 400 mg in 200 mls @ 200 mls/hr IV Q12 [facility] Last Admin: 04/03/17 21:53 Dose: 200 mls/hr Metronidazole (Flagyl) 500 mg in 100 mls @ 100 mls/hr IV Q8H [facility] Last Admin: 04/04/17 06:13 Dose: 100 mls/hr Lisinopril (Zestril) 10 mg PO DAILY [facility] Last Admin: 04/03/17 08:08 Dose: 10 mg Magnesium Hydroxide (Milk Of Magnesia) 30 ml PO DAILY PRN PRN PRN Reason: Constipation Morphine Sulfate (Morphine) 4 - 6 mg IV Q3H PRN PRN PRN Reason: SEVERE PAIN (6-10/10) Last Admin: 04/03/17 23:47 Dose: 4 mg Nicotine (Nicoderm Cq (Pbkc)) 21 mg TRANSDERM. DAILY [facility] Last Admin: 04/03/17 08:09 Dose: 21 mg Ondansetron HCl (Zofran) 4 mg IV Q8H PRN PRN PRN Reason: Nausea Last Admin: 04/03/17 21:50 Dose: 4 mg Oxycodone HCl (Oxyir) 5 - 10 mg PO Q4H PRN PRN PRN Reason: Moderate Pain (pain scale 4-5) Last Admin: 04/04/17 04:44 Dose: 10 mg Pantoprazole Sodium (Protonix) 40 mg PO DAILY [facility] Last Admin: 04/03/17 08:08 Dose: 40 mg Sodium Chloride () 5 - 30 ml IV UD PRN PRN Reason: SALINE FLUSH Last Admin: 04/03/17 23:47 Dose: 10 ml Assessment/Plan The patient is a 51 y/o F w/ PMHx: Hypertension, Bipolar Disorder, Hx Polysubstance abuse, Tobacco use, Living at the [facility] w/ recent admission 03/19/17-03/20/17 for the same presentation w/ discharge to home on cipro/flagyl oral regimen w/ outpatient planned c-scope for Bx who now returns to the [facility] ED on 04/02/17 as well as the evening prior with similar complaints of ongoing abdominal discomfort, discomfort w/ her hernia, ongoing stool changes as well as intermittent blood tinged stools. (1) ? Colitis, Suspected Rectal CA: [facility], maintained on hydration, monitor I&Os, maintain NPO status w/ bowel rest for planned c-scope today, continue cipro and flagyl regimen, PPI, anti-emetics, pain regimen PRN. Dr. Majano, Surgery consulted, 04/03/17 c-scope w/ distal friable rectal mass, bx taken, pandiverticulosis. Bld Cx pending. ID consulted, pending given atypical presentation. 04/03/17 CBC w/ WBC 12 with shift-->04/04/17 CBC WBC 10.1 with resolved L shift. Given findings, Oncology Dr. Dubon/Meche will be consulted given patient willingness to only have evaluation performed in [place] as initially discussed with Dr. Majano this AM and noted possible [facility] evaluation. Patient mother w/ hx Lung CA w/ metastatic disease with treatment thus patient with severely negative connotation w/ chemotherapy/radiation. Per ID would plan discharge once plan in place on cipro and flagyl oral regimen for an additional 7-10 days. (2) Microcytic anemia, Unclear Chronicity, Fe Deficiency: Admission Hgb 10.3, stable from prior, discharged recently on Fe supplementation, continued, pending c-scope as noted. 04/04/17 Hgb 8.6. (3) Hypertension: Not on regimen, BP elevated upon ED presentation, initiated low dose ACEI, improved BP, PRN hydralazine. (4) Tobacco Abuse: Encouraged cessation, inpatient consultation per RT, NR if desired. (5) History of polysubstance abuse: Clean for approximately 5 years, encouraged continued clean status. (6) Bipolar disorder: Not on regimen, encouraged outpatient therapy. Ativan PRN started given notable anxiety following c-scope w/ decisions for next step in cared as noted #1. (7) DVT prophylaxis: SCDs, defer chemoprophylaxis given anemia, GI presentation s/p endoscopy w/ Bx. (8) Social: Homeless status, CM consulted to assist to assure appropriate follow-up. Oncology consulted now given risk for loss of follow-up. Code Visit Inpatient E&M: 20305 Subs Hosp L2
--- NOTE | 2017-04-04 06:25 | PN_ITS ---
Subjective: Patient overnight with improvement of pain and eager for diet transition. She denies any nausea or emesis. She remained afebrile overnight although did have low-grade temperature yesterday afternoon. Reviewed labs with patient and these have improved. Discussed findings on c-scope from day prior at length and patient tearful following. She noted willingness to only have evaluation locally currently secondary to need for support who is in [place] only and unable to travel to [facility] which had been initially discussed per Dr. Majano to assure appropriate follow-up plan. Patient denies fevers, chills, nausea, emesis , chest pain or dyspnea. Objective: Physical Examination: General: awake, alert, oriented x 3 and cooperative, seated upright in the bed in no apparent distress. Skin: normal color, turgor, no icterus, cyanosis. HEENT: AT/NC, EOMI, PERRLA, improved MMM. Lungs: Diminished breath sounds bilaterally, greater bases, moderate effort, no rales, ronchi or wheezing. Heart: Regular rate and rhythm; no gallop, rub audible. Abdomen: soft, overweight, NTTP, mildly lessened distention, normalized BS. Extremities: no cyanosis, clubbing, or edema. Neurological: patient awake, alert, oriented x 3; cognitive function intact; pupils equally reactive to light and accomodation; cranial nerves II-XII grossly normal, moving all 4 extremities, no focal deficits, strength improved, moderately globally decreased secondary to acute presentation. Psychiatric: affect appears tearful, anxious following discussion re: rectal mass and next step in evaluation, no acute evidence of depressive feelings. Vitals/I&O's: Vital Signs Temp Pulse Resp BP Pulse Ox 98.2 F 76 18 113/73 95 04/04/17 04:46 04/04/17 04:46 04/04/17 04:46 04/04/17 04:46 04/04/17 04:46 Oxygen Delivery Method Room Air Weight: 194 lb 3.636 oz Body Mass Index (BMI) 28.2 Intake and Output for Last 24 Hours 04/02/17 04/03/17 04/04/17 23:59 23:59 23:59 Intake Total 5157 / 5157 4334 / 4334 1176 / 1176 Output Total 200 / 200 Balance 4957 / 4957 4334 / 4334 1176 / 1176 Laboratory Results 04/03/17 05:52: WBC 12.0 H, RBC 4.50, Hgb 8.9 L, Hct 29.8 L, MCV 66.2 L, MCH 19.8 L, MCHC 29.9 L, RDW 18.7 H, RDW Differential 43.3, Plt Count 890 H*, MPV 9.8, Immature Gran % (Auto) 0.200, Neut % (Auto) 68.9, Lymph % (Auto) 16.8 L, [place] % (Auto) 13.0 H, Eos % (Auto) 0.6, Baso % (Auto) 0.5, Absolute Neuts (auto ) 8.3 H, Absolute Lymphs (auto) 2.01, Total Counted Not Reportable, Differential Comment SCAN, Diff Path Review August04/03/17 05:52: Sodium 137, Potassium 3.7, Chloride 104, Carbon Dioxide 25.0, Anion Gap 8, BUN 8, Creatinine 0.68, Estim Creat Clear Calc 96.52, Est GFR (MDRD ) Af Amer 117, Est GFR (MDRD) Non-Af 97, BUN/Creatinine Ratio 11.8, Glucose 88, Calcium 7.9 L 04/04/17 05:45: WBC Pending, RBC Pending, Hgb Pending, Hct Pending, MCV Pending , MCH Pending, MCHC Pending, RDW Pending, RDW Differential Pending, Plt Count Pending, Neut % (Auto) Pending, Absolute Neuts (auto) Pending, Total Counted Pending 04/04/17 05:45: Sodium Pending, Potassium Pending, Chloride Pending, Carbon Dioxide Pending, Anion Gap Pending, BUN Pending, Creatinine Pending, Est GFR ( MDRD) Af Amer Pending, Est GFR (MDRD) Non-Af Pending, BUN/Creatinine Ratio Pending, Glucose Pending, Calcium Pending Current Medications Acetaminophen (Tylenol) 650 mg PO Q6H PRN PRN PRN Reason: Mild Pain (scale 0-3)/T>100.7 Last Admin: 04/04/17 04:44 Dose: 650 mg Ferrous Sulfate (Ferrous Sulfate) 325 mg PO BIDCM TO Last Admin: 04/03/17 18:11 Dose: 325 mg Hydralazine HCl (Apresoline) 10 mg IV Q4H PRN PRN PRN Reason: SBP > 160 Hydromorphone HCl (Dilaudid) 0.5 - 1 mg IV Q3H PRN PRN PRN Reason: SEVERE PAIN (6-10/10) Last Admin: 04/02/17 20:44 Dose: 1 mg Sodium Chloride () 1,000 mls @ 125 mls/hr IV .Q8H [facility] Last Admin: 04/04/17 04:44 Dose: 125 mls/hr Ciprofloxacin (Cipro) 400 mg in 200 mls @ 200 mls/hr IV Q12 [facility] Last Admin: 04/03/17 21:53 Dose: 200 mls/hr Metronidazole (Flagyl) 500 mg in 100 mls @ 100 mls/hr IV Q8H [facility] Last Admin: 04/04/17 06:13 Dose: 100 mls/hr Lisinopril (Zestril) 10 mg PO DAILY [facility] Last Admin: 04/03/17 08:08 Dose: 10 mg Magnesium Hydroxide (Milk Of Magnesia) 30 ml PO DAILY PRN PRN PRN Reason: Constipation Morphine Sulfate (Morphine) 4 - 6 mg IV Q3H PRN PRN PRN Reason: SEVERE PAIN (6-10/10) Last Admin: 04/03/17 23:47 Dose: 4 mg Nicotine (Nicoderm Cq (Pbkc)) 21 mg TRANSDERM. DAILY [facility] Last Admin: 04/03/17 08:09 Dose: 21 mg Ondansetron HCl (Zofran) 4 mg IV Q8H PRN PRN PRN Reason: Nausea Last Admin: 04/03/17 21:50 Dose: 4 mg Oxycodone HCl (Oxyir) 5 - 10 mg PO Q4H PRN PRN PRN Reason: Moderate Pain (pain scale 4-5) Last Admin: 04/04/17 04:44 Dose: 10 mg Pantoprazole Sodium (Protonix) 40 mg PO DAILY [facility] Last Admin: 04/03/17 08:08 Dose: 40 mg Sodium Chloride () 5 - 30 ml IV UD PRN PRN Reason: SALINE FLUSH Last Admin: 04/03/17 23:47 Dose: 10 ml Assessment/Plan The patient is a 51 y/o F w/ PMHx: Hypertension, Bipolar Disorder, Hx Polysubstance abuse, Tobacco use, Living at the [facility] w/ recent admission 03/19/17-03/20/17 for the same presentation w/ discharge to home on cipro/flagyl oral regimen w/ outpatient planned c-scope for Bx who now returns to the [facility] ED on 04/02/17 as well as the evening prior with similar complaints of ongoing abdominal discomfort, discomfort w/ her hernia, ongoing stool changes as well as intermittent blood tinged stools. (1) ? Colitis, Suspected Rectal CA: Admitted to [place], maintained on hydration, monitor I&Os, maintain NPO status w/ bowel rest for planned c-scope today, continue cipro and flagyl regimen, PPI, anti-emetics, pain regimen PRN. Dr. Majano , Surgery consulted, 04/03/17 c-scope w/ distal friable rectal mass, bx taken, pandiverticulosis. Bld Cx pending. ID consulted, pending given atypical presentation. 04/03/17 CBC w/ WBC 12 with shift-->04/04/17 CBC WBC 10.1 with resolved L shift. Given findings, Oncology Dr. Dubon/Meche will be consulted given patient willingness to only have evaluation performed in [place] as initially discussed with Dr. Majano this AM and noted possible [facility] Main evaluation. Patient mother w/ hx Lung CA w/ metastatic disease with treatment thus patient with severely negative connotation w/ chemotherapy/radiation. Per ID would plan discharge once plan in place on cipro and flagyl oral regimen for an additional 7-10 days. (2) Microcytic anemia, Unclear Chronicity, Fe Deficiency: Admission Hgb 10.3, stable from prior, discharged recently on Fe supplementation, continued, pending c-scope as noted. 04/04/17 Hgb 8.6. (3) Hypertension: Not on regimen, BP elevated upon ED presentation, initiated low dose ACEI, improved BP, PRN hydralazine. (4) Tobacco Abuse: Encouraged cessation, inpatient consultation per RT, NR if desired. (5) History of polysubstance abuse: Clean for approximately 5 years, encouraged continued clean status. (6) Bipolar disorder: Not on regimen, encouraged outpatient therapy. Ativan PRN started given notable anxiety following c-scope w/ decisions for next step in cared as noted #1. (7) DVT prophylaxis: SCDs, defer chemoprophylaxis given anemia, GI presentation s/p endoscopy w/ Bx. (8) Social: Homeless status, CM consulted to assist to assure appropriate follow -up. Oncology consulted now given risk for loss of follow-up. Code Visit Inpatient E&M: 66752 Subs Hosp L2
[2017-04-04 06:30] LABS: Absolute Lymphocyte Count 2.16 X10^3/ul (0.83-4.51); Absolute Neutrophil Count 6.1 X10^3/uL (2.0-7.7); Basophil# 0.05 X10^3/uL; Basophil% 0.5 % (0-1); Eosinophil# 0.44 X10^3/uL; Eosinophils% 4.3 % (0-5); Hematocrit 29.5 % (37-47); Hemoglobin 8.6 g/dl (12.0-15.0); Lymphocyte # 2.16 X10^3/ul (4.0); Lymphocyte % 21.3 % (19-41); Mean Corp Hgb Conc 29.2 g/gl (32-36); Mean Corpuscular Hgb 19.9 pg (27.0-32.0); Mean Corpuscular Volume 68.3 fL (81-99); Mean Platelet Vol. 8.9 fl (6.2-12.0); Monocyte# 1.41 X10^3/uL; Monocyte% 13.9 % (0-10); Neutrophil # 6.06 X10^3/uL (2.7-7.7); Neutrophil % 59.9 % (47-70); RBC Distribution Width CV 18.9 % (11.6-14.6); RBC Distribution Width SD 46.9 fl (35.1-43.9); Red Blood Count 4.32 M/mm3 (4.2-5.4); White Blood Count 10.1 K/mm3 (4.4-11.0)
[2017-04-04 06:32] LABS: Differential Indicated SCAN CRITERIA MET; POSITIVE COUNT YES; POSITIVE DIFFERENTIAL NO; POSITIVE MORPHOLOGY YES
[2017-04-04 06:34] LABS: Platelet Count 803 K/mm3 (150-450)
[2017-04-04 06:43] LABS: Anion Gap 8 (5-15); BUN 6 mg/dL (7-18); BUN/Creat Ratio 9.1 RATIO (10-20); Calcium,Total 7.7 mg/dL (8.5-10.1); Chloride 108 mmol/L (98-107); Creatinine, Serum 0.66 mg/dL (0.55-1.02); EST Glomerular Filtration Rate 99 mL/min (>60); Est Glom Filt Rate - Afr Amer 120 mL/min (>60); Estimated Creatinine Clearance 99.44 ml/min; Glucose 92 mg/dL (70-110); Potassium 3.8 mmol/L (3.5-5.1); Sodium Level 140 mmol/L (136-145)
[2017-04-04 07:16] LABS: Anisocytosis 1+; Differential Comment SCAN; Hypochromasia 1+; Microcytosis 1+; Platelet Estimate MKD INC (ADEQ); Polychromasia 1+
[2017-04-04 08:01] VITALS: BP 124/86; PULSE 72; RESP 18; TEMP 36.8; O2SAT 96
[2017-04-04 08:05] VITALS: PULSE 80
[2017-04-04] MEDS: Ferrous Sulfate 325 MG Tablet PO ×2 (08:10→16:58)
[2017-04-04] MEDS: 0.9% NaCl Peripheral Flush Adult/Peds IV ×2 (08:11→13:56)
[2017-04-04] MEDS: Ondansetron 4 MG/2 ML Vial IV (08:11)
--- NOTE | 2017-04-04 08:24 | PN.ID_ITS ---
Subjective: Patient is alert overall clinically stable no further fevers. Remains on Cipro and Flagyl empirically. Underwent diagnostic colonoscopy yesterday rectal mass was biopsied. Objective: Alert and oriented ?3 does not appear toxic lungs are clear heart exam S1-S2 abdomen soft no peritoneal signs - Physical Exam Vital Signs Temp Pulse Resp BP Pulse Ox 98.3 F 72 18 124/86 H 96 04/04/17 08:01 04/04/17 08:01 04/04/17 08:01 04/04/17 08:01 04/04/17 08:01 Oxygen Delivery Method Room Air Weight: 88.1 kg Body Mass Index (BMI) 28.2 Intake and Output for Last 24 Hours 04/02/17 04/03/17 04/04/17 23:59 23:59 23:59 Intake Total 5157 / 5157 4334 / 4334 1176 / 1176 Output Total 200 / 200 Balance 4957 / 4957 4334 / 4334 1176 / 1176 Laboratory Tests Past 24 Hrs 04/04/17 04/04/17 05:45 05:45 WBC 10.1 RBC 4.32 Hgb 8.6 L Hct 29.5 L MCV 68.3 L MCH 19.9 L MCHC 29.2 L RDW 18.9 H RDW Differential 46.9 H Plt Count 803 H* MPV 8.9 Immature Gran % (Auto) 0.100 Neut % (Auto) 59.9 Lymph % (Auto) 21.3 [place] % (Auto) 13.9 H Eos % (Auto) 4.3 Baso % (Auto) 0.5 Absolute Neuts (auto) 6.1 Absolute Lymphs (auto) 2.16 Total Counted Not Reportable Differential Comment SCAN Diff Path Review May foll Platelet Estimate MKD INC Polychromasia 1+ Hypochromasia 1+ Anisocytosis 1+ Microcytosis 1+ Sodium 140 Potassium 3.8 Chloride 108 H Carbon Dioxide 24.0 Anion Gap 8 BUN 6 L Creatinine 0.66 Estim Creat Clear Calc 99.44 Est GFR (MDRD) Af Amer 120 Est GFR (MDRD) Non-Af 99 BUN/Creatinine Ratio 9.1 L Glucose 92 Calcium 7.7 L Route of nutrition/ use of supplements: [] Nutritional Intake: [] IV Site: [] Hinojosa Catheter: [] - Assessment/Plan Perirectal mass status post colonoscopy. Await the biopsy of the mass. Empirically on Cipro and Flagyl patient did have fevers initially. Closely follow the histopathology of the rectal mass.
[2017-04-04] MEDS: LORazepam 0.5 MG Tablet PO (09:28)
[2017-04-04] MEDS: Pantoprazole Sodium 40 MG Tablet PO (09:28)
[2017-04-04] MEDS: Lisinopril 10 MG Tablet PO (09:28)
[2017-04-04] MEDS: Ciprofloxacin 400 MG/200 ML BAG 200 MG IV (09:29)
--- NOTE | 2017-04-04 10:27 | PCM.PN.SRG ---
Subjective: Patient with rectal mass - awaiting histology, I contacted pathology and asked for a louis on the pathology No new complaints - Physical Exam General: Alert Oral: Moist Mucosa Neck: Supple Abdomen: Soft - and benign Vital Signs Temp Pulse Resp BP Pulse Ox 98.3 F 72 18 124/86 H 96 04/04/17 08:01 04/04/17 08:01 04/04/17 08:01 04/04/17 08:01 04/04/17 08:01 Oxygen Delivery Method Room Air Weight: 88.1 kg Body Mass Index (BMI) 28.2 Intake and Output for Last 24 Hours 04/02/17 04/03/17 04/04/17 23:59 23:59 23:59 Intake Total 5157 / 5157 4334 / 4334 1176 / 1176 Output Total 200 / 200 Balance 4957 / 4957 4334 / 4334 1176 / 1176 Laboratory Tests Past 24 Hrs 04/04/17 04/04/17 05:45 05:45 WBC 10.1 RBC 4.32 Hgb 8.6 L Hct 29.5 L MCV 68.3 L MCH 19.9 L MCHC 29.2 L RDW 18.9 H RDW Differential 46.9 H Plt Count 803 H* MPV 8.9 Immature Gran % (Auto) 0.100 Neut % (Auto) 59.9 Lymph % (Auto) 21.3 [place] % (Auto) 13.9 H Eos % (Auto) 4.3 Baso % (Auto) 0.5 Absolute Neuts (auto) 6.1 Absolute Lymphs (auto) 2.16 Total Counted Not Reportable Differential Comment SCAN Diff Path Review May foll Platelet Estimate MKD INC Polychromasia 1+ Hypochromasia 1+ Anisocytosis 1+ Microcytosis 1+ Sodium 140 Potassium 3.8 Chloride 108 H Carbon Dioxide 24.0 Anion Gap 8 BUN 6 L Creatinine 0.66 Estim Creat Clear Calc 99.44 Est GFR (MDRD) Af Amer 120 Est GFR (MDRD) Non-Af 99 BUN/Creatinine Ratio 9.1 L Glucose 92 Calcium 7.7 L Assessment/Plan Impression: rectal mass - awaiting pathology Plan: Spoke for a while with patient and her significant other. They told me that they were 75% certain that they were going to move to [place] The patient told me that she would be kicked out of her living arrangements at the [employer] on Apr 16, and so they may be leaving soon It may be better that they seek treatment in [place], as they are considering a move to [place] and would closer to major medical centers The patient still wishes consultation with the Per Diem/Oncologist here, I have contacted Dr. Mcgregor for this I have answered all their questions, and they have no further questions From a surgical standpoint, patient can be discharged after consultation with Hem/Onc
--- NOTE | 2017-04-04 10:32 | PN.SURG_ITS ---
Subjective: Patient with rectal mass - awaiting histology, I contacted pathology and asked for a louis on the pathology No new complaints - Physical Exam General: Alert Oral: Moist Mucosa Neck: Supple Abdomen: Soft - and benign Vital Signs Temp Pulse Resp BP Pulse Ox 98.3 F 72 18 124/86 H 96 04/04/17 08:01 04/04/17 08:01 04/04/17 08:01 04/04/17 08:01 04/04/17 08:01 Oxygen Delivery Method Room Air Weight: 88.1 kg Body Mass Index (BMI) 28.2 Intake and Output for Last 24 Hours 04/02/17 04/03/17 04/04/17 23:59 23:59 23:59 Intake Total 5157 / 5157 4334 / 4334 1176 / 1176 Output Total 200 / 200 Balance 4957 / 4957 4334 / 4334 1176 / 1176 Laboratory Tests Past 24 Hrs 04/04/17 04/04/17 05:45 05:45 WBC 10.1 RBC 4.32 Hgb 8.6 L Hct 29.5 L MCV 68.3 L MCH 19.9 L MCHC 29.2 L RDW 18.9 H RDW Differential 46.9 H Plt Count 803 H* MPV 8.9 Immature Gran % (Auto) 0.100 Neut % (Auto) 59.9 Lymph % (Auto) 21.3 [place] % (Auto) 13.9 H Eos % (Auto) 4.3 Baso % (Auto) 0.5 Absolute Neuts (auto) 6.1 Absolute Lymphs (auto) 2.16 Total Counted Not Reportable Differential Comment SCAN Diff Path Review May foll Platelet Estimate MKD INC Polychromasia 1+ Hypochromasia 1+ Anisocytosis 1+ Microcytosis 1+ Sodium 140 Potassium 3.8 Chloride 108 H Carbon Dioxide 24.0 Anion Gap 8 BUN 6 L Creatinine 0.66 Estim Creat Clear Calc 99.44 Est GFR (MDRD) Af Amer 120 Est GFR (MDRD) Non-Af 99 BUN/Creatinine Ratio 9.1 L Glucose 92 Calcium 7.7 L Assessment/Plan Impression: rectal mass - awaiting pathology Plan: Spoke for a while with patient and her significant other. They told me that they were 75% certain that they were going to move to [place] The patient told me that she would be kicked out of her living arrangements at the [employer] on Apr 16, and so they may be leaving soon It may be better that they seek treatment in [place], as they are considering a move to [place] and would closer to major medical centers The patient still wishes consultation with the Neuro Urologist/Oncologist here, I have contacted Dr. Mcgregor for this I have answered all their questions, and they have no further questions From a surgical standpoint, patient can be discharged after consultation with Hem/Onc
--- NOTE | 2017-04-04 10:46 | PCM.DC ---
- Discharge Diagnoses Current Active Problems: (1) ? Colitis, Suspected Rectal CA, Pathology pending. (2) Microcytic anemia, Unclear Chronicity, Fe Deficiency (3) Hypertension (4) Tobacco Abuse (5) History of polysubstance abuse (6) Bipolar disorder You will use the following diet at home:: Cardiac Your food should be the consistency of: Regular Your liquids should be the consistency of: Regular/Thin Discharge Activity: - - Avoid aggressive activity until completed antibiotic therapy and improved clinically with re-evaluation per your primary care physician. May resume sexual activity in: 10-14 days Weight Bearing Status: Weight bearing as tolerated Call your doctor if you observe: Fever of 101 or Higher, Change in Color, Inability to urinate, Inability to have a bowel movement, Shortness of breath, Dizziness, Fainting spells, Chest pain, Uncontrolled pain Instructions: Colonoscopy, Why Do You Smoke?, Planning to Quit Smoking, Getting Support for Quitting Smoking, Coping with Smoking Withdrawal, ED Gastroenteritis Bacterial Additional Instructions: Please follow-up as directed per Dr. Mcgregor/Dr. Dubon (Hem/Oncology group [facility] in [place]). Pathology is pending upon discharge and may be reviewed at follow-up. Please complete the antibiotic therapy (ciprofloxacin and flagyl). If you have recurrent bloody stools or recurrent worsened abdominal pain or fevers please contact your primary care physician immediately and you may return to the ER for repeat evaluation. Pending Tests on Discharge: Rectal mass biopsy pathology. Allergies/Adverse Reactions: Allergies bee venom protein (honey bee) Allergy (Verified 04/01/17 17:14) Anaphylaxis codeine Allergy (Verified 04/01/17 17:14) Anaphylaxis Penicillins Allergy (Verified 04/01/17 17:14) Unknown Medications to take at Discharge Acetaminophen [Tylenol Tablet] 650 mg PO Q6H PRN PRN tablet 03/20/17 Pantoprazole Sodium [Protonix] 40 mg PO DAILY #30 tablet 03/20/17 Ciprofloxacin [Cipro] 500 mg PO BID #20 tab 04/04/17 Ferrous Sulfate 325 mg PO BIDCM #60 tab 04/04/17 Lisinopril [Zestril] 10 mg PO DAILY #30 tab 04/04/17 Lorazepam [Ativan] 0.5 mg PO Q6H PRN PRN #10 tab 04/04/17 Metronidazole [Flagyl] 500 mg PO Q8H 10 Days #30 tab 04/04/17 Nicotine [Nicoderm Cq] 21 mg TRANSDERM. DAILY #14 patch 04/04/17 Ondansetron [Zofran] 8 mg PO Q8H PRN PRN #10 tab 04/04/17 Oxycodone [Oxyir] 5 - 10 mg PO Q4H PRN PRN #20 tab 04/04/17 The following prescriptions were given: Oxycodone [Oxyir] 5 - 10 mg PO Q4H PRN PRN #20 tab PRN Reason: Moderate Pain (pain scale 4-5) Lorazepam [Ativan] 0.5 mg PO Q6H PRN PRN #10 tab PRN Reason: anxiety, agitation Ondansetron [Zofran] 8 mg PO Q8H PRN PRN #10 tab PRN Reason: nausea, emesis Lisinopril [Zestril] 10 mg PO DAILY #30 tab Metronidazole [Flagyl] 500 mg PO Q8H 10 Days #30 tab Nicotine [Nicoderm Cq] 21 mg TRANSDERM. DAILY #14 patch Ciprofloxacin [Cipro] 500 mg PO BID #20 tab Ferrous Sulfate 325 mg PO BIDCM #60 tab Primary Care Physician: Kevin Rodriguez DO [Primary Care Provider] - Please follow up with your Primary Care Physician in: Follow-up within 1-2 days to review admission, discuss findings. Please Follow Up With: Angi Mcgregor MD When: Follow-up with Dr. Mcgregor in 1-2 weeks to review pathology or as directed. Please Follow Up With: Aleena Majano MD When: Please contact her office with any questions or concerns (General Surgery). Proposed Discharge Date: 04/04/17
--- NOTE | 2017-04-04 10:56 | PCM.DC.SUM ---
Discharge Date and Diagnosis Date of Admission: 04/02/17 Date of Discharge: 04/04/17 - Primary Discharge Diagnosis (1) ? Bacterial Colitis w/ Additionally Suspected Rectal CA, Pathology pending. (2) Microcytic anemia, Unclear Chronicity, Fe Deficiency (3) Hypertension (4) Tobacco Abuse (5) History of polysubstance abuse (6) Bipolar disorder - Secondary Discharge Diagnosis Chronic Problems Microcytic anemia (Chronic) Colonic mass (Chronic) Benign essential hypertension (Chronic) Bipolar disorder (Chronic) Polysubstance abuse (Chronic) Tobacco use (Chronic) Hospital Course and Treatment Dr. Majano Surgery Dr. Mcgregor Oncology Dr. Clifford SIMPSON Operations: None Procedures: Colonoscopy, EKG Summary of Care Provided: The patient is a 51 y/o F w/ PMHx: Hypertension, Bipolar Disorder, Hx Polysubstance abuse, Tobacco use, Living at the [facility] w/ recent admission 03/19/17-03/20/17 for the same presentation w/ discharge to home on cipro/flagyl oral regimen w/ outpatient planned c-scope for Bx who returned to the [facility] ED on 04/02/17 as well as the evening prior with similar complaints of ongoing abdominal discomfort, discomfort w/ her hernia, ongoing stool changes as well as intermittent blood tinged stools. Admitted to [place], maintained on hydration, monitor I&Os, maintained initially NPO status w/ bowel rest, cipro and flagyl regimen, PPI, anti-emetics, pain regimen PRN. Dr. Majano, Surgery consulted, 04/03/17 c-scope w/ distal friable rectal mass, bx taken, pandiverticulosis. Bld Cx obtained, pending at discharge. ID consulted, given atypical presentation, recommended given response to continue treatment for possible colitis with Per ID upon discharge, oral cipro and flagyl regimen for an additional 7-10 days.04/03/17 CBC w/ WBC 12 with shift-->04/04/17 CBC WBC 10.1 with resolved L shift. Given findings, Oncology Dr. Dubon/Meche consulted to assure appropriate follow-up given patient homeless and noted barriers to care as well as history of mother with cancer with patient severely negative connotation to chemotherapy/radiation. Admission Hgb 10.3, stable from prior, discharged recently on Fe supplementation, continued. Patient w/ elevated BP during admission, initiated low dose ACEI, improved BP which was continued upon discharge. Encouraged tobacco cessation, inpatient consultation per RT, NR rx given. Patient w/ hx of polysubstance abuse with patient reported clean status for approximately 5 years, encouraged continued clean status. Patient w/ Bipolar disorder, not on regimen, encouraged outpatient therapy, severe anxiety and distress with rectal mass/CA dx with pathology pending, given low dose ativan with small rx also upon discharge w/ early PCP re-evaluation requested. . Ativan PRN started given notable anxiety following c-scope w/ decisions for next step in cared as noted #1. Discharge Activity: - - Avoid aggressive activity until completed antibiotic therapy and improved clinically with re-evaluation per your primary care physician. May resume sexual activity in: 10-14 days Weight Bearing Status: Weight bearing as tolerated Call your doctor if you observe: Fever of 101 or Higher, Change in Color, Inability to urinate, Inability to have a bowel movement, Shortness of breath, Dizziness, Fainting spells, Chest pain, Uncontrolled pain Home Medications: Medications to take at Discharge Acetaminophen [Tylenol Tablet] 650 mg PO Q6H PRN PRN tablet 03/20/17 Pantoprazole Sodium [Protonix] 40 mg PO DAILY #30 tablet 03/20/17 Ciprofloxacin [Cipro] 500 mg PO BID #20 tab 04/04/17 Ferrous Sulfate 325 mg PO BIDCM #60 tab 04/04/17 Lisinopril [Zestril] 10 mg PO DAILY #30 tab 04/04/17 Lorazepam [Ativan] 0.5 mg PO Q6H PRN PRN #10 tab 04/04/17 Metronidazole [Flagyl] 500 mg PO Q8H 10 Days #30 tab 04/04/17 Nicotine [Nicoderm Cq] 21 mg TRANSDERM. DAILY #14 patch 04/04/17 Ondansetron [Zofran] 8 mg PO Q8H PRN PRN #10 tab 04/04/17 Oxycodone [Oxyir] 5 - 10 mg PO Q4H PRN PRN #20 tab 04/04/17 Following Prescrptions Were Given to Patient: Oxycodone [Oxyir] 5 - 10 mg PO Q4H PRN PRN #20 tab PRN Reason: Moderate Pain (pain scale 4-5) Lorazepam [Ativan] 0.5 mg PO Q6H PRN PRN #10 tab PRN Reason: anxiety, agitation Ondansetron [Zofran] 8 mg PO Q8H PRN PRN #10 tab PRN Reason: nausea, emesis Lisinopril [Zestril] 10 mg PO DAILY #30 tab Metronidazole [Flagyl] 500 mg PO Q8H 10 Days #30 tab Nicotine [Nicoderm Cq] 21 mg TRANSDERM. DAILY #14 patch Ciprofloxacin [Cipro] 500 mg PO BID #20 tab Ferrous Sulfate 325 mg PO BIDCM #60 tab Primary Care Physician: Kevin Rodriguez DO [Primary Care Provider] - Please follow up with your Primary Care Physician in: Follow-up within 1-2 days to review admission, discuss findings. Please Follow Up With: Angi Mcgregor MD When: Follow-up with Dr. Mcgregor in 1-2 weeks to review pathology or as directed. Please Follow Up With: Aleena Majano MD When: Please contact her office with any questions or concerns (General Surgery). Patient Instructions: Colonoscopy, Why Do You Smoke?, Planning to Quit Smoking, Getting Support for Quitting Smoking, Coping with Smoking Withdrawal, ED Gastroenteritis Bacterial Disposition: Home Minutes spent on discharge:: 35 Patient Condition:: Fair Meaningful Use Info Meaningful Use Diagnoses (Choose all that apply): None applicable Code Visit Inpatient E&M: 60165 Disch Hosp
--- NOTE | 2017-04-04 11:01 | DS.PCM_ITS ---
Discharge Date and Diagnosis Date of Admission: 04/02/17 Date of Discharge: 04/04/17 - Primary Discharge Diagnosis (1) ? Bacterial Colitis w/ Additionally Suspected Rectal CA, Pathology pending. (2) Microcytic anemia, Unclear Chronicity, Fe Deficiency (3) Hypertension (4) Tobacco Abuse (5) History of polysubstance abuse (6) Bipolar disorder - Secondary Discharge Diagnosis Chronic Problems Microcytic anemia (Chronic) Colonic mass (Chronic) Benign essential hypertension (Chronic) Bipolar disorder (Chronic) Polysubstance abuse (Chronic) Tobacco use (Chronic) Hospital Course and Treatment Dr. Majano Surgery Dr. Mcgregor Oncology Dr. Clifford SIMPSON Operations: None Procedures: Colonoscopy, EKG Summary of Care Provided: The patient is a 51 y/o F w/ PMHx: Hypertension, Bipolar Disorder, Hx Polysubstance abuse, Tobacco use, Living at the [facility] w/ recent admission 03/19/17-03/20/17 for the same presentation w/ discharge to home on cipro/flagyl oral regimen w/ outpatient planned c-scope for Bx who returned to the [facility] ED on 04/02/17 as well as the evening prior with similar complaints of ongoing abdominal discomfort, discomfort w/ her hernia, ongoing stool changes as well as intermittent blood tinged stools. Admitted to OR, maintained on hydration, monitor I&Os, maintained initially NPO status w/ bowel rest, cipro and flagyl regimen, PPI, anti-emetics, pain regimen PRN. Dr. Majano, Surgery consulted, 04/03/17 c-scope w/ distal friable rectal mass, bx taken, pandiverticulosis. Bld Cx obtained, pending at discharge. ID consulted, given atypical presentation, recommended given response to continue treatment for possible colitis with Per ID upon discharge, oral cipro and flagyl regimen for an additional 7-10 days.04/03/17 CBC w/ WBC 12 with shift-->04/04/17 CBC WBC 10.1 with resolved L shift. Given findings, Oncology Dr. Dubon/Meche consulted to assure appropriate follow-up given patient homeless and noted barriers to care as well as history of mother with cancer with patient severely negative connotation to chemotherapy/radiation. Admission Hgb 10.3, stable from prior, discharged recently on Fe supplementation, continued. Patient w/ elevated BP during admission, initiated low dose ACEI, improved BP which was continued upon discharge. Encouraged tobacco cessation, inpatient consultation per RT, NR rx given. Patient w/ hx of polysubstance abuse with patient reported clean status for approximately 5 years, encouraged continued clean status. Patient w/ Bipolar disorder, not on regimen, encouraged outpatient therapy, severe anxiety and distress with rectal mass/CA dx with pathology pending, given low dose ativan with small rx also upon discharge w/ early PCP re-evaluation requested. . Ativan PRN started given notable anxiety following c-scope w/ decisions for next step in cared as noted #1. Discharge Activity: - - Avoid aggressive activity until completed antibiotic therapy and improved clinically with re-evaluation per your primary care physician. May resume sexual activity in: 10-14 days Weight Bearing Status: Weight bearing as tolerated Call your doctor if you observe: Fever of 101 or Higher, Change in Color, Inability to urinate, Inability to have a bowel movement, Shortness of breath, Dizziness, Fainting spells, Chest pain, Uncontrolled pain Home Medications: Medications to take at Discharge Acetaminophen [Tylenol Tablet] 650 mg PO Q6H PRN PRN tablet 03/20/17 Pantoprazole Sodium [Protonix] 40 mg PO DAILY #30 tablet 03/20/17 Ciprofloxacin [Cipro] 500 mg PO BID #20 tab 04/04/17 Ferrous Sulfate 325 mg PO BIDCM #60 tab 04/04/17 Lisinopril [Zestril] 10 mg PO DAILY #30 tab 04/04/17 Lorazepam [Ativan] 0.5 mg PO Q6H PRN PRN #10 tab 04/04/17 Metronidazole [Flagyl] 500 mg PO Q8H 10 Days #30 tab 04/04/17 Nicotine [Nicoderm Cq] 21 mg TRANSDERM. DAILY #14 patch 04/04/17 Ondansetron [Zofran] 8 mg PO Q8H PRN PRN #10 tab 04/04/17 Oxycodone [Oxyir] 5 - 10 mg PO Q4H PRN PRN #20 tab 04/04/17 Following Prescrptions Were Given to Patient: Oxycodone [Oxyir] 5 - 10 mg PO Q4H PRN PRN #20 tab PRN Reason: Moderate Pain (pain scale 4-5) Lorazepam [Ativan] 0.5 mg PO Q6H PRN PRN #10 tab PRN Reason: anxiety, agitation Ondansetron [Zofran] 8 mg PO Q8H PRN PRN #10 tab PRN Reason: nausea, emesis Lisinopril [Zestril] 10 mg PO DAILY #30 tab Metronidazole [Flagyl] 500 mg PO Q8H 10 Days #30 tab Nicotine [Nicoderm Cq] 21 mg TRANSDERM. DAILY #14 patch Ciprofloxacin [Cipro] 500 mg PO BID #20 tab Ferrous Sulfate 325 mg PO BIDCM #60 tab Primary Care Physician: Kevin Rodriguez DO [Primary Care Provider] - Please follow up with your Primary Care Physician in: Follow-up within 1-2 days to review admission, discuss findings. Please Follow Up With: Angi Mcgregor MD When: Follow-up with Dr. Mcgregor in 1-2 weeks to review pathology or as directed. Please Follow Up With: Aleena Majano MD When: Please contact her office with any questions or concerns (General Surgery) . Patient Instructions: Colonoscopy, Why Do You Smoke?, Planning to Quit Smoking , Getting Support for Quitting Smoking, Coping with Smoking Withdrawal, ED Gastroenteritis Bacterial Disposition: Home Minutes spent on discharge:: 35 Patient Condition:: Fair Meaningful Use Info Meaningful Use Diagnoses (Choose all that apply): None applicable Code Visit Inpatient E&M: 47968 Disch Hosp
[2017-04-04 12:31] LABS: Pathologist Review Reviewed
[2017-04-04 14:02] VITALS: BP 165/88; PULSE 72; RESP 18; TEMP 36.8; O2SAT 97
--- NOTE | 2017-04-04 14:24 | PCM.DC ---
- Discharge Diagnoses Current Active Problems: (1) ? Colitis, Suspected Rectal CA, Pathology pending. (2) Microcytic anemia, Unclear Chronicity, Fe Deficiency (3) Hypertension (4) Tobacco Abuse (5) History of polysubstance abuse (6) Bipolar disorder You will use the following diet at home:: Cardiac Your food should be the consistency of: Regular Your liquids should be the consistency of: Regular/Thin Discharge Activity: - - Avoid aggressive activity until completed antibiotic therapy and improved clinically with re-evaluation per your primary care physician. May resume sexual activity in: 10-14 days Weight Bearing Status: Weight bearing as tolerated Call your doctor if you observe: Fever of 101 or Higher, Change in Color, Inability to urinate, Inability to have a bowel movement, Shortness of breath, Dizziness, Fainting spells, Chest pain, Uncontrolled pain Instructions: Colonoscopy, Why Do You Smoke?, Planning to Quit Smoking, Getting Support for Quitting Smoking, Coping with Smoking Withdrawal, ED Gastroenteritis Bacterial Additional Instructions: Please follow-up as directed per Dr. Mcgregor/Dr. Dubon (Hem/Oncology group [facility] in [place]). Pathology is pending upon discharge and may be reviewed at follow-up. Please complete the antibiotic therapy (ciprofloxacin and flagyl). If you have recurrent bloody stools or recurrent worsened abdominal pain or fevers please contact your primary care physician immediately and you may return to the ER for repeat evaluation. [facility] [employer] (Mrs. Vasquez) confirmed that fenantyl patch was able to be used at their facility. Pending Tests on Discharge: Rectal mass biopsy pathology, HIV, hepatitis panel, liver US results pending upon discharge. Allergies/Adverse Reactions: Allergies bee venom protein (honey bee) Allergy (Verified 04/01/17 17:14) Anaphylaxis codeine Allergy (Verified 04/01/17 17:14) Anaphylaxis Penicillins Allergy (Verified 04/01/17 17:14) Unknown Medications to take at Discharge Acetaminophen [Tylenol Tablet] 650 mg PO Q6H PRN PRN tablet 03/20/17 Pantoprazole Sodium [Protonix] 40 mg PO DAILY #30 tablet 03/20/17 Ciprofloxacin [Cipro] 500 mg PO BID #20 tab 04/04/17 Fentanyl [Duragesic] 12 mcg TRANSDERM. Q3D #2 patch 04/04/17 Ferrous Sulfate 325 mg PO BIDCM #60 tab 04/04/17 Lisinopril [Zestril] 10 mg PO DAILY #30 tab 04/04/17 Metronidazole [Flagyl] 500 mg PO Q8H 10 Days #30 tab 04/04/17 Nicotine [Nicoderm Cq] 21 mg TRANSDERM. DAILY #14 patch 04/04/17 Ondansetron [Zofran] 8 mg PO Q8H PRN PRN #10 tab 04/04/17 ProMETHAzine [Phenergan] 12.5 mg PO Q6H PRN PRN #30 tab 04/04/17 The following prescriptions were given: ProMETHAzine [Phenergan] 12.5 mg PO Q6H PRN PRN #30 tab PRN Reason: nausea, emesis Ondansetron [Zofran] 8 mg PO Q8H PRN PRN #10 tab PRN Reason: nausea, emesis Fentanyl [Duragesic] 12 mcg TRANSDERM. Q3D #2 patch Lisinopril [Zestril] 10 mg PO DAILY #30 tab Metronidazole [Flagyl] 500 mg PO Q8H 10 Days #30 tab Nicotine [Nicoderm Cq] 21 mg TRANSDERM. DAILY #14 patch Ciprofloxacin [Cipro] 500 mg PO BID #20 tab Ferrous Sulfate 325 mg PO BIDCM #60 tab Primary Care Physician: Kevin Rodriguez DO [Primary Care Provider] - Please follow up with your Primary Care Physician in: Follow-up within 1-2 days to review admission, discuss findings. Please Follow Up With: Angi Mcgregor MD When: Follow-up with Dr. Mcgregor in 1-2 weeks to review pathology or as directed. Please Follow Up With: Aleena Majano MD When: Please contact her office with any questions or concerns (General Surgery). Proposed Discharge Date: 04/04/17
--- NOTE | 2017-04-04 14:27 | US_ITS ---
STUDY: ABDOMINAL ULTRASOUND - RIGHT UPPER QUADRANT REASON FOR VISIT: Female, 51 years old. Abdominal pain, abnormal CT TECHNIQUE: Ultrasound evaluation of the right upper quadrant was performed with real-time and static cuellar-scale imaging. TECHNICAL QUALITY: Adequate. COMPARISON: Prior study of 2010 FINDINGS: Liver: The liver measures 18.4 cm. There is a homogeneously echogenic focus of the right hepatic lobe measuring 2.0 x 2.1 x 2.2 cm consistent with hemangioma. This was reported on a previous ultrasound of June 13, 2010 and is stable in the interval. The bile ducts are within normal limits. There is hepatic color flow. The direction of portal flow is hepatopetal. There is no demonstrated mass lesion. Gallbladder: Normal distended gallbladder. The gallbladder wall measures 3 mm. There is a negative sonographic Juarez's sign. There is a trace of pericholecystic fluid. There is a 6 x 6 x 5 mm gallbladder wall polyp . This was also noted on the previous study. Common Bile Duct (C.B.D.): The common bile duct measures 5 mm. Pancreas: The pancreatic tail is obscured by bowel gas. The remainder of the pancreas appears normal. Right Kidney: Normal size of the right kidney. The right kidney measures 11.8 x 5.3 x 4.6 cm. Normal renal cortex. The right cortex measures 1.1 cm. There is a 6 mm echogenic focus of the right kidney casting posterior acoustical shadowing consistent with calculus. There is no right hydronephrosis. There is a small right pleural effusion. There is an anechoic fluid region medial to the right hepatic lobe with septations, consistent with fluid versus bowel. US/Liver IMPRESSION: 1. Homogeneously echogenic focus of the right hepatic lobe measuring 2.0 x 2.1 x 2.2 cm consistent with a hemangioma. This is stable from previous ultrasound of 2010. 2. Trace of pericholecystic fluid. 6 x 6 x 5 mm gallbladder wall polyp, also noted on the previous ultrasound. 3. 6 mm calculus of the right kidney. 4. Small right pleural effusion. This was not reported on previous recent CT. 5. Anechoic fluid region medial to the right hepatic lobe which may represent small loculated fluid collection or bowel. This was not seen on previous CT. Electronically Signed: Jono Albarran MD at 19:26 EST , Service support ,
--- NOTE | 2017-04-04 14:28 | DCINST_ITS ---
- Discharge Diagnoses Current Active Problems: (1) ? Colitis, Suspected Rectal CA, Pathology pending. (2) Microcytic anemia, Unclear Chronicity, Fe Deficiency (3) Hypertension (4) Tobacco Abuse (5) History of polysubstance abuse (6) Bipolar disorder You will use the following diet at home:: Cardiac Your food should be the consistency of: Regular Your liquids should be the consistency of: Regular/Thin Discharge Activity: - - Avoid aggressive activity until completed antibiotic therapy and improved clinically with re-evaluation per your primary care physician. May resume sexual activity in: 10-14 days Weight Bearing Status: Weight bearing as tolerated Call your doctor if you observe: Fever of 101 or Higher, Change in Color, Inability to urinate, Inability to have a bowel movement, Shortness of breath, Dizziness, Fainting spells, Chest pain, Uncontrolled pain Instructions: Colonoscopy, Why Do You Smoke?, Planning to Quit Smoking, Getting Support for Quitting Smoking, Coping with Smoking Withdrawal, ED Gastroenteritis Bacterial Additional Instructions: Please follow-up as directed per Dr. Mcgregor/Dr. Dubon (Hem /Oncology group [facility] in [place]). Pathology is pending upon discharge and may be reviewed at follow-up. Please complete the antibiotic therapy (ciprofloxacin and flagyl). If you have recurrent bloody stools or recurrent worsened abdominal pain or fevers please contact your primary care physician immediately and you may return to the ER for repeat evaluation. [facility] [employer] (Mrs. Vasquez) confirmed that fenantyl patch was able to be used at their facility. Pending Tests on Discharge: Rectal mass biopsy pathology, HIV, hepatitis panel, liver US results pending upon discharge. Allergies/Adverse Reactions: Allergies bee venom protein (honey bee) Allergy (Verified 04/01/17 17:14) Anaphylaxis codeine Allergy (Verified 04/01/17 17:14) Anaphylaxis Penicillins Allergy (Verified 04/01/17 17:14) Unknown Medications to take at Discharge Acetaminophen [Tylenol Tablet] 650 mg PO Q6H PRN PRN tablet 03/20/17 Pantoprazole Sodium [Protonix] 40 mg PO DAILY #30 tablet 03/20/17 Ciprofloxacin [Cipro] 500 mg PO BID #20 tab 04/04/17 Fentanyl [Duragesic] 12 mcg TRANSDERM. Q3D #2 patch 04/04/17 Ferrous Sulfate 325 mg PO BIDCM #60 tab 04/04/17 Lisinopril [Zestril] 10 mg PO DAILY #30 tab 04/04/17 Metronidazole [Flagyl] 500 mg PO Q8H 10 Days #30 tab 04/04/17 Nicotine [Nicoderm Cq] 21 mg TRANSDERM. DAILY #14 patch 04/04/17 Ondansetron [Zofran] 8 mg PO Q8H PRN PRN #10 tab 04/04/17 ProMETHAzine [Phenergan] 12.5 mg PO Q6H PRN PRN #30 tab 04/04/17 The following prescriptions were given: ProMETHAzine [Phenergan] 12.5 mg PO Q6H PRN PRN #30 tab PRN Reason: nausea, emesis Ondansetron [Zofran] 8 mg PO Q8H PRN PRN #10 tab PRN Reason: nausea, emesis Fentanyl [Duragesic] 12 mcg TRANSDERM. Q3D #2 patch Lisinopril [Zestril] 10 mg PO DAILY #30 tab Metronidazole [Flagyl] 500 mg PO Q8H 10 Days #30 tab Nicotine [Nicoderm Cq] 21 mg TRANSDERM. DAILY #14 patch Ciprofloxacin [Cipro] 500 mg PO BID #20 tab Ferrous Sulfate 325 mg PO BIDCM #60 tab Primary Care Physician: Kevin Rodriguez DO [Primary Care Provider] - Please follow up with your Primary Care Physician in: Follow-up within 1-2 days to review admission, discuss findings. Please Follow Up With: Angi Mcgregor MD When: Follow-up with Dr. Mcgregor in 1-2 weeks to review pathology or as directed. Please Follow Up With: Aleena Majano MD When: Please contact her office with any questions or concerns (General Surgery) . Proposed Discharge Date: 04/04/17
--- NOTE | 2017-04-04 14:41 | CASEMGMT ---
Addendum entered by Kimberley Noe 04/04/17 16:41: As per pharmacy, pt needs a prior authorization for the Fentanyl patch. GRISELDA called [employer], it has been approved, the auth number is [id number]. GRISELDA called the retail pharmacy, gave them the authorization. Lj ran it through and it did go through for pt to be covered. No further needs. FELISHA Young, SECTIONIZER Original Note: Addendum entered by Kimberley Noe 04/04/17 15:59: The Captain referred to below is Captain aVsquez. To clarify, when physician called [facility] and spoke w/Captain Vasquez, she did not mention the pt's name, just called to ask what meds someone could be on at [facility]. SW let the pt know this. Pt and physician both spoke w/the same Captain Christina. FELISHA Young, SECTIONIZER Original Note: Dr. Mcgregor spoke w/SW, states pt had mentioned to him that she cannot be at [facility] on pain medications. SW met w/pt and pt's significant other in the room. Pt states that she cannot be on pain meds at [facility]. She states they may go stay w/[facility], though then it becomes difficult for pt's significant other to get to work as he has no transportation. Pt states they move to [place] and have treatment for cancer there, she states she has son that lives here and one that lives in [place]. SW encouraged her to apply for Medicaid in [place] so she has insurance. Pt states she is hoping to transfer it to [place]. SW explained will get her information on Medicaid in [place]. GRISELDA did do a search on the internet and found information on applying for Medicaid in [place], printed it and gave it to pt. She also asked for information on hospitals in [place]. GRISELDA also printed information and gave it to pt. GRISELDA spoke w/physician, she spoke w/one of the captains at [facility] and she okayed pt being on the Fentanyl Patch at [facility]. GRISELDA let pt know, she became anxious but then calmed, and called the Captain herself w/GRISELDA in the room, verified she could return on the patch. Pt is going to give the rest of the patches to her son/daughter in law to hold, the Captain agreed this was a good idea. Pt states her daughter in law will bring her back to [facility] [place] [facility] this afternoon. Much support given to pt, no further needs are anticipated. EFLISHA Young, SECTIONIZER
--- NOTE | 2017-04-04 17:22 | CON.PCM_ITS ---
Problem List (1) Rectal cancer Status: Acute (2) Microcytic anemia Status: Chronic (3) Polysubstance abuse Status: Chronic Reason for Consult Date of Consultation: 04/04/17 Reason for Consultation: Rectal mass History of Present Illness: The patient is a 51 year old F with past medical history significant for hypertension, bipolar disorder, history of polysubstance abuse, abuse who has been living at the [facility] senior living presented with ongoing rectal discomfort with sensation of constipation, incomplete emptying of her bowel since December 2016. Patient has noted rectal bleeding intermittently and has been using Celexa for stool softener for constipation. Patient had a low-grade temperature and was diagnosed with colitis was recently discharged home on Flagyl and ciprofloxacin. CT scan of abdomen pelvis showed circumferential low rectal mass, and cystic lesion in the liver. She presented with a microcytic anemia with thrombocytosis. She was seen by Dr. Majano general surgery for further evaluation and subsequent biopsy rectal mass yesterday still pending. Patient has moderate pain, controlled with Percocet. She states that she cannot have necrotic prescription at the senior living. Currently denies nausea or vomiting. No fever or chills. Patient denies history of HIV or hepatitis infection. Denies any significant weight loss in the last 6 months. Past Medical History Past Medical History (Chronic Problems): Chronic Problems Microcytic anemia (Chronic) Colonic mass (Chronic) Benign essential hypertension (Chronic) Bipolar disorder (Chronic) Polysubstance abuse (Chronic) Tobacco use (Chronic) Allergies bee venom protein (honey bee) Allergy (Verified 04/01/17 17:14) Anaphylaxis codeine Allergy (Verified 04/01/17 17:14) Anaphylaxis Penicillins Allergy (Verified 04/01/17 17:14) Unknown Home Medications: Ambulatory Orders Medication Instructions Recorded Acetaminophen [Tylenol Tablet] 650 mg PO Q6H PRN PRN tablet 03/20/17 Pantoprazole Sodium [Protonix] 40 mg PO DAILY #30 tablet 03/20/17 Ciprofloxacin [Cipro] 500 mg PO BID #20 tab 04/04/17 Fentanyl [Duragesic] 12 mcg TRANSDERM. Q3D #2 patch 04/04/17 Ferrous Sulfate 325 mg PO BIDCM #60 tab 04/04/17 Lisinopril [Zestril] 10 mg PO DAILY #30 tab 04/04/17 Metronidazole [Flagyl] 500 mg PO Q8H 10 Days #30 tab 04/04/17 Nicotine [Nicoderm Cq] 21 mg TRANSDERM. 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 - *Family History Maternal History Items: - - Notes a maternal family history of cancer and she states history of brain tumor as well as lung tumor with unclear primary. Paternal History Items: No pertinent history Review of Systems Constitutional: Reports: Fatigue Gastrointestinal: Reports: Hematochezia Psychiatric: Reports: - - Bipolar disorder Patient Problems: Active and Suspected Problems Rectal cancer (Acute) Rectal cancer (Acute) - Physical Exam General: Alert, Oriented x3, No apparent distress HEENT: Atraumatic, PERRLA, EOMI, Normocephalic Oral: Moist Mucosa, No Gingival or Mucosal Lesions/ Ulcerations Neck: Supple, No JVD Lungs: Diminished Cardiovascular: Regular rate, Regular Rhythm, Normal S1, Normal S2, No murmurs Abdomen: Bowel Sounds Present, Soft, Non Tender, Non-Distended, No Hepato- splenomegaly, - - A low circumferential rectal mass at the anal verge. Extremities: No clubbing, No cyanosis, No edema, Capillary Refill Less than 3 Seconds Skin: No rashes, No breakdown Musculoskeletal: No Tenderness to Palpation of Joints or Extremities Lymphatic: No Cervical, Supraclavicular, or Inguinal Adenopathy Neurological: Neuro grossly intact Psych/Mental Status: Normal Affect Vital Signs Temp Pulse Resp BP Pulse Ox 98.3 F 72 18 165/88 H 97 04/04/17 14:02 04/04/17 14:02 04/04/17 14:02 04/04/17 14:02 04/04/17 14:02 Oxygen Delivery Method Room Air Weight: 194 lb 3.636 oz Body Mass Index (BMI) 28.2 Intake and Output for Last 24 Hours 04/02/17 04/03/17 04/04/17 23:59 23:59 23:59 Intake Total 5157 / 5157 4334 / 4334 2439 / 2439 Output Total 200 / 200 Balance 4957 / 4957 4334 / 4334 2439 / 2439 Microbiology Past 72 Hours 04/02/17 12:25 Blood Culture - Preliminary Blood Culture (Wb) - Anticubital Right No growth in 48 hours. 04/02/17 12:20 Blood Culture - Preliminary Blood Culture (Wb) - Left Hand No growth in 48 hours. Laboratory Tests Past 24 Hrs 04/03/17 04/04/17 04/04/17 05:52 05:45 05:45 WBC 10.1 RBC 4.32 Hgb 8.6 L Hct 29.5 L MCV 68.3 L MCH 19.9 L MCHC 29.2 L RDW 18.9 H RDW Differential 46.9 H Plt Count 803 H* MPV 8.9 Immature Gran % (Auto) 0.100 Neut % (Auto) 59.9 Lymph % (Auto) 21.3 Mingo % (Auto) 13.9 H Eos % (Auto) 4.3 Baso % (Auto) 0.5 Absolute Neuts (auto) 6.1 Absolute Lymphs (auto) 2.16 Total Counted Not Reportable Differential Comment SCAN Diff Path Review Reviewed May foll Platelet Estimate MKD INC Polychromasia 1+ Hypochromasia 1+ Anisocytosis 1+ Microcytosis 1+ Sodium 140 Potassium 3.8 Chloride 108 H Carbon Dioxide 24.0 Anion Gap 8 BUN 6 L Creatinine 0.66 Estim Creat Clear Calc 99.44 Est GFR (MDRD) Af Amer 120 Est GFR (MDRD) Non-Af 99 BUN/Creatinine Ratio 9.1 L Glucose 92 Calcium 7.7 L Hepatitis A IgM Ab Hepatitis A Ab Total Hep Bs Antigen Hep B Core Total Ab Hep B Core IgM Ab Hepatitis C Comment HIV 1&2 Ag/Ab, 4th Gen 04/04/17 11:54 WBC RBC Hgb Hct MCV MCH MCHC RDW RDW Differential Plt Count MPV Immature Gran % (Auto) Neut % (Auto) Lymph % (Auto) Mingo % (Auto) Eos % (Auto) Baso % (Auto) Absolute Neuts (auto) Absolute Lymphs (auto) Total Counted Differential Comment Diff Path Review Platelet Estimate Polychromasia Hypochromasia Anisocytosis Microcytosis Sodium Potassium Chloride Carbon Dioxide Anion Gap BUN Creatinine Estim Creat Clear Calc Est GFR (MDRD) Af Amer Est GFR (MDRD) Non-Af BUN/Creatinine Ratio Glucose Calcium Hepatitis A IgM Ab Pending Hepatitis A Ab Total Pending Hep Bs Antigen Pending Hep B Core Total Ab Pending Hep B Core IgM Ab Pending Hepatitis C Comment Pending HIV 1&2 Ag/Ab, 4th Gen Pending CXR: Hyperinflation, both lungs are clear. Assessment/Plan Active and Suspected Problems Rectal cancer (Acute) Rectal cancer (Acute) ASSESSMENT: 51 old female who has a history of bipolar disorder and polysubstance abuse presented with a low rectal mass, biopsy is still pending. The patient has no metastatic disease based on her recent CT scan of chest and chest x-ray. Iron deficiency anemia. PLANS: -Ultrasound of the liver was ordered today to further evaluate cystic lesion in her liver. -HIV 1 &2 and hepatitis B & C serology also ordered today. -Discuss pain management issues with Duragesic patch and ibuprofen as needed. -Further radiological study with either PET/CT scan for staging if pathology is consistent with anal cancer (squamous cell) or MRI scan of pelvis if pathology consistent with rectal cancer. -She will follow-up with Dr. Dubon and Dr. Cao next week for chemotherapy and radiation therapy planning. -Start iron supplement twice daily for anemia. cc: Dr. Kevin Rodriguez, Dr. Angi Mcgregor, Dr. Natalee Mehta, Dr. Aleena Majano
--- NOTE | 2017-04-04 20:30 | NURSING ---
attempted to dc pt @ 1935. as this rn attempted to give pt dc instructions, pt insisted on taking shower, and eating a snack before she would leave. refused to have vs taken. pt repeatedly asked if she could stay the night. this rn and special agent in charge miles explained to pt that she was dc'd and she became agitated. pt did not want to return to [facility], fears she is being singled out by staff and feels it is not safe. pt agreed to shower and call for her ride, but was throwing personal belongings around in the room. security called to assist with monitoring the situation. pt left the floor at 2023. verbalized understanding of dc instructions.
[2017-04-05 06:08] LABS: HEPATITIS B SURFACE AG Negative (Negative); Hepatitis A AB, Total Negative (Negative); Hepatitis A IgM Antibody Negative (Negative); Hepatitis B Core AB IgM Negative (Negative); Hepatitis B Core Ab Total Negative (Negative); Hepatitis C Ab 0.1 s/co ratio (0.0-0.9)
[2017-04-05 08:54] LABS: HIV 1/0/2 SCREEN 4TH GEN Non Reactive (Non Reactive); Hep B Surface Antibodies Non Reactive (.)
[2017-04-07 14:23] LABS: Pathologist Review Reviewed
== END 2017-04-04 20:25 | disposition home or self-care (01) | DRG 173 ==
LOC: ED 08:03 → MS2 12:19
PROVIDERS: Internal Medicine Hematology & Oncology; Surgery; Admitting Provider Family Medicine; Emergency Provider Emergency Medicine; Family Provider Student in an Organized Health Care Education/Training Program; PCP Student in an Organized Health Care Education/Training Program; Visit Provider Family Medicine
PROC: 0DJD8ZZ Inspection of Lower Intestinal Tract, Via Natural or Artificial Opening Endoscopic (ICD-10-PCS; CPT 45378; principal; 2017-04-03 16:00)
DX: C20 Malignant neoplasm of rectum (principal); A04.9 Bacterial intestinal infection, unspecified; D50.9 Iron deficiency anemia, unspecified; F17.210 Nicotine dependence, cigarettes, uncomplicated; F19.11 Other psychoactive substance abuse, in remission; F31.9 Bipolar disorder, unspecified; I10 Essential (primary) hypertension; K57.30 Diverticulosis of large intestine without perforation or abscess without bleeding; Z59.0 Homelessness; K64.4 Residual hemorrhoidal skin tags; Z80.9 Family history of malignant neoplasm, unspecified; K43.9 Ventral hernia without obstruction or gangrene; K62.89 Other specified diseases of anus and rectum; D72.829 Elevated white blood cell count, unspecified; D47.3 Essential (hemorrhagic) thrombocythemia; Z79.899 Other long term (current) drug therapy
CPT/HCPCS: 36415; 71020; 74176; 76705; 80048; 81001; 83605; 85025; 86703; 86704; 86705; 86706; 86708; 86709; 86803; 87040; 87340; 88305; 93005; 96361; 96374; 96375; 97802; 99285; 99406; J7030; J7040; A4216; J0744; J2405

== ENCOUNTER 2023-04-08 13:36 | Emergency (ER) | payer MEDICAID, SELFPAY ==
[2023-04-08 13:44] VITALS: BP 162/113; PULSE 96; RESP 21; TEMP 37.6; O2SAT 96; BMI 18.9
[2023-04-08 13:47] VITALS: BP 162/113
--- NOTE | 2023-04-08 14:32 | EDS_ITS ---
HPI HPI - GI History of Present Illness Chief Complaint: Abd Pain Informant: patient Narrative Narrative: Worsening left side abdominal pain vomiting for the past 2 days. No hematemesis. Unable to keep things down. Last emesis 10 minutes ago. History of recurrent rectal cancer initially diagnosed in 2016 states had surgical resection with chemoradiation. She moved to [place] in 2017. Reports got rediagnosed stage III rectal cancer this past July in [place]. She is currently back here since November. 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 Reports get reestablished with a PCP this past Friday Dr. Dee. Being referred to h perla-onc. Also states history of CHF diagnosis past July. She does not know her EF. She reports chronic loose stools since her initial diagnosis of cancer back in 2016. Nonbloody. [facility] Medical History CHF (congestive heart failure) Rectal cancer Home Medications lisinopril 10 mg tablet 10 mg PO DAILY #30 tabs 04/04/17 [Rx Last Taken Unknown] naproxen 500 mg tablet 500 mg PO BID PRN #20 tabs 04/16/17 [Rx Last Taken Unknown] benzonatate 100 mg capsule (Tessalon Perles) 100 mg PO TID PRN PRN Cough 3 days ##14 04/28/17 [Rx Last Taken Unknown] dextromethorphan-guaifenesin ER 60 mg-1,200 mg tab,extend release,12hr (Mucinex DM) 1 ea PO BID PRN Congestion ##14 04/28/17 [Rx Last Taken Unknown] docusate sodium 100 mg capsule (DOK) 100 mg PO DAILY #30 CAPSULES 04/08/23 [Rx Last Taken Unknown] ondansetron 4 mg disintegrating tablet 4 mg PO Q8H PRN PRN Nausea #10 tabs 04/08/23 [Rx Last Taken Unknown] Allergy/AdvReac Type Severity Reaction Status Date / Time bee venom protein (honey bee) Allergy Anaphylaxis Verified 04/08/23 13:43 codeine Allergy Anaphylaxis Verified 04/08/23 13:43 Penicillins Allergy Unknown Verified 04/08/23 13:43 Social History Smoking Status: Current every day smoker tobacco type: cigarettes ROS ROS ED Constitutional Constitutional ED: Denies chills, fever(s) or sweats Eyes Eyes: Denies change in vision ENT ENT ED: Denies dysphagia or sore throat Cardiovascular Cardiovascular: Denies chest pain, leg edema, palpitations or racing heartbeat Respiratory/Chest Respiratory/Chest: Denies cough, dyspnea or dyspnea on exertion Gastrointestinal Gastrointestinal: Reports abdominal pain, nausea and vomiting; Denies diarrhea Genitourinary Genitourinary ED: Denies dysuria, hematuria or urinary frequency Musculoskeletal Musculoskeletal: Denies back pain, extremity pain or neck pain Integumentary Denies rash or wounds Neurologic Neurologic: Denies headache(s), paresthesias or weakness EXAM Physical Exam Const Vital Signs: 04/08/23 13:44 04/08/23 13:47 04/08/23 15:59 Temperature 99.7 F H Temperature Source Temporal Pulse Rate 96 95 Respiratory Rate 21 H 21 H Blood Pressure 162/113 H 162/113 H 172/115 H Blood Pressure Mean 129 129 134 Pulse Ox 96 98 Oxygen Delivery Method Room Air Room Air 04/08/23 16:13 Temperature Temperature Source Pulse Rate 79 Respiratory Rate 14 Blood Pressure 172/111 H Blood Pressure Mean 131 Pulse Ox 98 Oxygen Delivery Method Positive well nourished and well developed General Appearance ED: well developed and NAD HEENT Reports dry mucous membranes normocephalic and atraumatic Mouth ED: Yes dry mucous membranes Mouth: dry mucous membranes Eyes PERRL, EOMs intact bilaterally and conjunctivae normal General Eye ED: Yes normal appearance of both eyes Neck no lymphadenopathy and supple General: Negative for tenderness Chest Wall Chest: Negative for tenderness Resp normal respiratory effort and normal air movement Effort and Inspection: symmetric chest movement; Negative for respiratory distress Cardio regular rate, regular rhythm and no murmurs Peripheral Pulses: pulses 2+ throughout GI normal to inspection, nondistended, normoactive bowel sounds GI Narrative: Tender left upper abdomen nondistended. Normal bowel sounds. Palpation: Negative for guarding or rebound tenderness present Back/Spine no CVA tenderness and no thoracic nor lumbar tenderness Extremity normal to inspection Extremity Narrative: minimal bilat LE edema General Extremety ED: Yes edema; Negative for tenderness General Extremity: edema Neuro oriented x3 and no sensory deficits noted Sensorium / Orientation: awake and alert Skin no rashes or lesions noted and no wounds MDM MDM MDM Narrative Medical decision making narrative: Interventions / MDM: Differential diagnosis: History of rectal CA, dehydration, electrolyte abnormalities Diagnosis considered but do not suspect: Colitis however CT negative. My EKG interpretation: N/A Imaging independently reviewed and interpreted by myself: CT abdomen pelvis IV contrast: Rectal wall thickening with bladder wall thickening, normal appendix. Also read by radiology. External documents reviewed: N/A Test considered but not ordered:N/A ED course: Patient crying with pain left upper quadrant. History of rectal cancer from history that is recurrent. Been vomiting with dry mucosal membranes. IV established fluids ordered, Zofran Pepcid morphine for symptom control. CT scan ordered for further evaluation. Labs creatinine 1.1 up from 0.9, white count 12.6. Normal lipase and liver function. She had thrombocytosis platelets 759 which elevated similar to previous. CT scan with thickening rectal wall and thickened bladder consistent with her rectal cancer history. Updated on findings symptoms were improving she is tolerating oral fluids on reevaluation. She request Colace to help with her stools that she has been on this in the past. Prescription for Zofran also sent to her pharmacy. She will follow-up with her PCP and also has planned follow-up with heme-onc as referred by her PCP per her history. She will continue oral fluids for hydration. Discussed follow-up with her doctor for recheck labs. All questions were answered. Re-evaluation: stable Disposition discussed with patient/family/significant other: Patient Case discussed with consulting clinician: N/A This note was generated with [employer] dictation software. It may contain incorrect words, spelling, and punctuation that were not noted in checking the note before signing. Lab Data Attestation: I reviewed the patient's lab results. Labs: Laboratory Results - last 24 hr 04/08/23 14:50 WBC 12.6 H RBC 5.69 H Hgb 15.4 H Hct 46.7 MCV 82.1 MCH 27.1 MCHC 33.0 RDW Std Deviation 45.7 H RDW Coeff of Shabana 15.5 H Plt Count 759 H* MPV 8.9 Immature Gran % (Auto) 0.500 Neut % (Auto) 77.3 H Lymph % (Auto) 11.9 L Becker % (Auto) 8.3 Eos % (Auto) 1.4 Baso % (Auto) 0.6 Absolute Neuts (auto) 9.7 H Absolute Lymphs (auto) 1.50 Nucleated RBC % 0 Differential Comment SCANNED Diff Path Review May foll Platelet Estimate MKD INC Sodium 136 Potassium 4.0 Chloride 100 Carbon Dioxide 35.0 H Anion Gap 1 L BUN 18 Creatinine 1.11 H Estim Creat Clear Calc 50.22 Est GFR (MDRD) Af Amer 65 Est GFR (MDRD) Non-Af 53 L BUN/Creatinine Ratio 16.2 Glucose 101 Calcium 9.9 Total Bilirubin 0.40 AST 19 ALT 18 Alkaline Phosphatase 74 Total Protein 7.4 Albumin 3.6 Globulin 3.8 Albumin/Globulin Ratio 0.9 Lipase 14 Radiography Diagnostic Testing: Clinical Impression(s) from Imaging Studies Abdomen/Pelvis CT 04/08/23 15:10 IMPRESSION: Circumferential wall thickening of the rectum. Left renal cyst. Status post splenectomy. Mild degree of diffuse bladder wall thickening. Electronically Signed: Mono Rosas MD at 15:32 EST Reading Location ID and State: [facility] / [place] , Service support , Discharge Plan Triage Chief Complaint: Abd Pain ED Provider: Humberto Leon Dx/Rx/DC Orders Clinical Impression: Vomiting, Rectal cancer, Dehydration, Renal insufficiency Instructions: Colorectal Cancer, Dehydration, ED Vomiting (Adult), ED Renal Insufficiency Prescriptions: New docusate sodium [DOK] 100 mg capsule 100 mg PO DAILY Qty: 30 0RF ondansetron [ondansetron] 4 mg tablet,disintegrating 4 mg PO Q8H PRN PRN (Reason: Nausea) Qty: 10 0RF No Action lisinopril 10 MG tablet 10 mg PO DAILY Qty: 30 0RF naproxen 500 MG tablet 500 mg PO BID PRN Qty: 20 0RF benzonatate [Tessalon Perles] 100 MG capsule 100 mg PO TID PRN PRN (Reason: Cough) 3 Days Qty: 14 0RF dextromethorphan-guaifenesin [Mucinex DM] 1 EACH tablet extended release 12 hr 1 ea PO BID PRN (Reason: Congestion) Qty: 14 0RF Primary Care Provider: Phan Dee Referrals: Kevin Rodriguez DO [Non-Staff] - Phan Dee MD [Primary Care Provider] - 3-5 Days Activity Restrictions/Additional Instructions: Creatinine 1.11 up from 0.9. Given IV fluids continue oral fluids at home. Take medication as prescribed. CT scan notes thickening of your rectum consistent with your history of rectal cancer. Follow-up with heme oncology as referred by your primary doctor. Disposition Disposition: Home, Self Care Discharge Date/Time: 04/08/23 16:15
[2023-04-08] MEDS: Ondansetron 4 MG/2 ML Vial IV (14:44)
[2023-04-08] MEDS: Morphine 4 MG/ML Syringe IV (14:44)
[2023-04-08 14:57] LABS: Absolute Neutrophil Count 9.7 X10^3/uL (2.0-7.7); Basophil# 0.08 X10^3/uL; Basophil% 0.6 % (0-1); Eosinophil# 0.18 X10^3/uL; Eosinophils% 1.4 % (0-5); Hematocrit 46.7 % (37-47); Hemoglobin 15.4 g/dL (12.0-15.0); Lymphocyte % 11.9 % (19-41); Mean Corpuscular Hgb 27.1 pg (27.0-32.0); Mean Corpuscular Volume 82.1 fL (81-99); Mean Platelet Vol. 8.9 fl (6.2-12.0); Monocyte# 1.04 X10^3/uL; Monocyte% 8.3 % (0-10); NRBC Flagged by Analyzer 0 % (0-5); Neutrophil % 77.3 % (47-70); POSITIVE COUNT YES; RBC Distribution Width CV 15.5 % (11.6-14.6); RBC Distribution Width SD 45.7 fl (35.1-43.9); Red Blood Count 5.69 M/mm3 (4.2-5.4); White Blood Count 12.6 K/mm3 (4.4-11.0)
[2023-04-08 15:05] LABS: Differential Indicated SCAN CRITERIA MET; Platelet Count 759 K/mm3 (150-450)
--- NOTE | 2023-04-08 15:10 | CT_ITS ---
STUDY: CT ABDOMEN AND PELVIS WITH CONTRAST REASON FOR EXAM: Female, 57 years old. Pain -- hx stage 3 rectal CA, splenectomy RADIATION DOSAGE (If Supplied By Facility): CTDIvol = ( 10.96 ) mGy, DLP = ( 422.05 ) mGycm TECHNIQUE: Transaxial images were obtained from the dome of the diaphragm to the symphysis pubis without oral contrast. IV 100mL Isovue-300 was administered. Sagittal and coronal images were reconstructed. Individualized dose optimization techniques were used for this CT. COMPARISON: Comparison is made with prior study dated April 01, 2017. FINDINGS: Minimal increased linear markings at the lung bases suggestive of mild degree of scarring. Coronary artery calcification. Normal liver. Normal gallbladder and extrahepatic biliary system. The patient is status post splenectomy. Normal pancreas. Normal bilateral adrenal glands. Normal right kidney. There is a 2.5 cm x 2.1 cm cyst in the medial lower pole of the left kidney. Normal visualized stomach. Several nondistended fluid-filled small bowel loops are seen in the pelvis. Circumferential wall thickening of the rectum. Narrowing of the lumen. Neoplastic process should be ruled out. The appendix is visualized and appears normal. Normal abdominal aorta. Normal inferior vena cava. Normal retroperitoneum. Mild degree of diffuse bladder wall thickening. There is a small umbilical hernia containing fat. There are diffuse degenerative changes of the visualized lumbar spine. Minimal anterolisthesis of L5 on S1. CT/Abdomen/Pelvis W IV Cont ONLY IMPRESSION: Circumferential wall thickening of the rectum. Left renal cyst. Status post splenectomy. Mild degree of diffuse bladder wall thickening. Electronically Signed: Mono Rosas MD at 15:32 EST ,
[2023-04-08 15:12] LABS: ALB/GLOB Ratio 0.9 RATIO (0.9-2.4); AST(SGOT) 19 U/L (15-37); Alanine Aminotransfer ALT/SGPT 18 U/L (13-56); Albumin, Serum 3.6 g/dL (3.2-5.0); Alkaline Phosphatase 74 U/L (45-117); Anion Gap 1 (5-15); BUN 18 mg/dL (7-18); BUN/Creat Ratio 16.2 RATIO (10-20); Calcium,Total 9.9 mg/dL (8.5-10.1); Chloride 100 mmol/L (98-107); Creatinine, Serum 1.11 mg/dL (0.55-1.02); Differential Comment SCANNED; EST Glomerular Filtration Rate 53 mL/min (>60); Est Glom Filt Rate - Afr Amer 65 mL/min (>60); Estimated Creatinine Clearance 50.22 ml/min; Globulin 3.8 g/dL (2.2-4.2); Glucose 101 mg/dL (74-106); Lipase 14 U/L (13-75); Platelet Estimate MKD INC (ADEQ); Protein, Total 7.4 g/dL (6.4-8.2); Sodium Level 136 mmol/L (136-145)
[2023-04-08] MEDS: Famotidine 200 MG/20 ML MDV 20 MG in 0.9% Normal Saline (Pres. free 8 ML 300 MG IV (15:19)
[2023-04-08] MEDS: 0.9% Normal Saline (500mL Bag) 500 ML 999 ML IV (15:19)
[2023-04-08 15:59] VITALS: BP 172/115; PULSE 95; RESP 21; O2SAT 98
--- NOTE | 2023-04-08 16:05 | ED.RN ---
TELL THE IM LEAVING!
[2023-04-08 16:13] VITALS: BP 172/111; PULSE 79; RESP 14; O2SAT 98
[2023-04-10 08:45] LABS: Pathologist Review Reviewed
== END 2023-04-08 16:15 | disposition home or self-care (01) ==
PROVIDERS: Emergency Provider Emergency Medicine; PCP Family Medicine; Visit Provider Emergency Medicine
DX: E86.0 Dehydration (principal); C20 Malignant neoplasm of rectum; F17.210 Nicotine dependence, cigarettes, uncomplicated; Z79.899 Other long term (current) drug therapy
CPT/HCPCS: 74177; 80053; 83690; 85025; 96361; 96374; 96375; 99284; Q9967; J2405; J3490

== ENCOUNTER 2023-06-18 16:33 | Emergency (ER) | payer MEDICAID, SELFPAY ==
[2023-06-18 16:34] VITALS: BP 171/103; PULSE 81; RESP 11; TEMP 36.3; O2SAT 98; BMI 20.2
--- NOTE | 2023-06-18 16:49 | EKG12_ITS ---
Test Reason : Blood Pressure : / mmHG Vent. Rate : 077 BPM Atrial Rate : 077 BPM P-R Int : 172 ms QRS Dur : 108 ms QT Int : 426 ms P-R-T Axes : 076 082 094 degrees QTc Int : 482 ms Normal sinus rhythm Possible Left atrial enlargement Left ventricular hypertrophy with repolarization abnormality ( [place]pool product ) Abnormal ECG Confirmed by ELIANE MELLO, CITLALLI ([id number]), assistant editor NGHIA MONTANEZ ([id number]) on 06/20/2023 10:49:46 AM Referred By: Confirmed By:CITLALLI DEL RIO MD
--- NOTE | 2023-06-18 16:50 | EX.ED.DYSGE1 ---
HPI History of Present Illness Chief Complaint: Chest Pain Narrative Narrative: 57-year-old female past medical history of hypertension presents via EMS with syncopal episode and chest pain. She states she has history of colorectal carcinoma and is supposed to have an ileostomy next week by [facility]. This afternoon, her relative dropped her off and she was walking around outside, and had a syncopal episode. She states she has a headache, and is having chest pain currently. She denies any injury from her fall, but was not sure if she had a seizure although she denies any loss of bowel or bladder, no previous seizure activity. She also states that she feels cold. She has not eaten much today, and denies any nausea or vomiting, no recent diarrhea, no other symptoms. [facility] Medical History CHF (congestive heart failure) Rectal cancer Home Medications lisinopril 10 mg tablet 10 mg PO DAILY #30 tabs 04/04/17 [Rx Last Taken Unknown] naproxen 500 mg tablet 500 mg PO BID PRN #20 tabs 04/16/17 [Rx Last Taken Unknown] benzonatate 100 mg capsule (Tessalon Perles) 100 mg PO TID PRN PRN Cough 3 days ##14 04/28/17 [Rx Last Taken Unknown] dextromethorphan-guaifenesin ER 60 mg-1,200 mg tab,extend release,12hr (Mucinex DM) 1 ea PO BID PRN Congestion ##14 04/28/17 [Rx Last Taken Unknown] docusate sodium 100 mg capsule (DOK) 100 mg PO DAILY #30 CAPSULES 04/08/23 [Rx Last Taken Unknown] ondansetron 4 mg disintegrating tablet 4 mg PO Q8H PRN PRN Nausea #10 tabs 04/08/23 [Rx Last Taken Unknown] Allergy/AdvReac Type Severity Reaction Status Date / Time bee venom protein (honey bee) Allergy Anaphylaxis Verified 04/08/23 13:43 Penicillins Allergy Unknown Verified 04/08/23 13:43 Social History Smoking Status: Current every day smoker tobacco type: cigarettes ROS ROS ED ROS Narrative Constitutional: No fever, no chills. HEENT: No sore throat. No neck pain. No loss of vision. No rhinorrhea. Cardiovascular: Positive chest pain. No palpitations. No pedal edema. Respiratory: No cough, no shortness of breath. Abdominal: No abdominal pain. No nausea. No vomiting. Genitourinary: No dysuria. No hematuria. Musculoskeletal: No myalgias. No arthralgias. Neurologic: Positive headaches. No dizziness. No lightheadedness. Positive syncopal episode. Skin: No rash. No change in color. Psychiatric: No depression. No anxiety. EXAM Physical Exam Narrative Exam Narrative: Afebrile. Vital signs noted. HEENT: Normocephalic. Atraumatic. PERRL, EOMI. Neck soft and supple. No point tenderness or step off. Cardiovascular: Regular rate and rhythm. No murmurs, rubs, or gallops appreciated. Respiratory: No tachypnea. Lungs clear to auscultation bilaterally. Gastrointestinal: Abdomen soft, nontender, with normoactive bowel sounds. No rebound or guarding. Neurological: Awake. Alert. Oriented. Nonfocal, nonlateralizing. Skin: No rash. Normal color. No pallor. Musculoskeletal: No pedal edema. Full range of motion extremities. Const Vital Signs: 06/18/23 16:34 06/18/23 17:01 Temperature 97.3 F L Temperature Source Temporal Pulse Rate 81 Respiratory Rate 11 L Blood Pressure 171/103 H Blood Pressure Mean 125 Pulse Ox 98 Oxygen Delivery Method Room Air Room Air MDM MDM MDM Narrative Medical decision making narrative: In the differential diagnosis is vasovagal syncope versus neurogenic syncope versus dehydration. I have low suspicion for pulmonary embolism as her pulse ox is 98% on room air and she is not tachycardic. She is afebrile here as well. Chest pain rule out was pursued. I will also image her head because she states she has headache with her history of colon cancer, and had a syncopal episode. This to rule out any intracranial hemorrhage or mass. I reviewed her laboratory work, she has normal white count of 11.0, hemoglobin 13.7, hematocrit 43.5, platelet count elevated at 577 which I think is nonspecific, chloride is elevated at 109 also. BUN of 32 with creatinine 1.04. Lactic acid normal at 1.4. Initial high-sensitivity troponin is 11 with repeat being 18. Her EKG was obtained and interpreted by myself independently as normal sinus rhythm at 77 bpm without ectopy or acute ST changes. She does have T wave inversion in V5 and V6 but the only other comparison is from 2017, approximately 7 years ago. With her negative delta troponin, I do feel she can be discharged to have her colon surgery. Patient had a moment when she was asking for something for pain because she had a headache. Her CT results were still pending at the time. She states that the ibuprofen that she takes at home does not help. I reviewed the CT report which shows no evidence of an acute intracranial hemorrhage or skull fracture. Chest x-ray in 1 view was also obtained and interpreted by myself independently as no evidence of pneumonia or pneumothorax. I reviewed the radiology report which confirms my independent interpretation. After her negative CT of the brain, she was administered morphine and ondansetron. I am unsure as to the cause of her reported syncopal episode, but I do feel is that she can be discharged safely home with follow-up. In review of her problem list, she does have history of polysubstance abuse and bipolar disorder as well. I do not feel she requires observation or admission at this time. Disposition is discharged home in stable condition. It should be noted that patient had eloped after receiving her medication, but prior to formal discharge. History & Record Review Discussion w/independent historian: Patient Additional record(s) reviewed:: Prior ED visit Lab Data Attestation: I reviewed the patient's lab results. Labs: Laboratory Results - last 24 hr 06/18/23 06/18/23 06/18/23 16:45 16:57 18:48 WBC 11.0 RBC 5.29 Hgb 13.7 Hct 43.5 MCV 82.2 MCH 25.9 L MCHC 31.5 L RDW Std Deviation 49.8 H RDW Coeff of Shabana 16.8 H Plt Count 577 H MPV 9.4 Immature Gran % (Auto) 0.300 Neut % (Auto) 69.7 Lymph % (Auto) 15.3 L Grundy % (Auto) 7.6 Eos % (Auto) 6.3 H Baso % (Auto) 0.8 Absolute Neuts (auto) 7.7 Absolute Lymphs (auto) 1.68 Nucleated RBC % 0 Sodium 138 Potassium 3.8 Chloride 109 H Carbon Dioxide 24.0 Anion Gap 5 BUN 32 H Creatinine 1.04 H Estim Creat Clear Calc 55.63 Est GFR (MDRD) Af Amer 70 Est GFR (MDRD) Non-Af 58 L BUN/Creatinine Ratio 30.8 H Glucose 169 H Lactic Acid 1.5 Calcium 9.6 Troponin I High Sens 11 18 Radiography Diagnostic Testing: Clinical Impression(s) from Imaging Studies Chest X-Ray 06/18/23 17:11 IMPRESSION: No acute radiographic abnormalities. Electronically Signed: Addy Mei MD at 18:14 EST , Brain CT 06/18/23 17:12 IMPRESSION: No acute intracranial abnormality. Chronic involutional and ischemic changes of the brain. Electronically Signed: Addy Mei MD at 18:13 EST , Discharge Plan Triage Chief Complaint: Chest Pain ED Provider: Thien Mckeon Dx/Rx/DC Orders Clinical Impression: Syncope and collapse, Rectal cancer, Colonic mass, Closed head injury, Chest pain Instructions: ED Chest Pain, Uncertain Cause, ED Fainting, Uncertain Cause Prescriptions: No Action lisinopril 10 MG tablet 10 mg PO DAILY Qty: 30 0RF naproxen 500 MG tablet 500 mg PO BID PRN Qty: 20 0RF benzonatate [Tessalon Perles] 100 MG capsule 100 mg PO TID PRN PRN (Reason: Cough) 3 Days Qty: 14 0RF dextromethorphan-guaifenesin [Mucinex DM] 1 EACH tablet extended release 12 hr 1 ea PO BID PRN (Reason: Congestion) Qty: 14 0RF docusate sodium [DOK] 100 mg capsule 100 mg PO DAILY Qty: 30 0RF ondansetron [ondansetron] 4 mg tablet,disintegrating 4 mg PO Q8H PRN PRN (Reason: Nausea) Qty: 10 0RF Primary Care Provider: Phan Dee Referrals: Phan Dee MD [Primary Care Provider] - 3-5 Days if not improving Disposition Disposition: Home, Self Care Discharge Date/Time: 06/18/23 19:44
[2023-06-18] MEDS: 0.9% Normal Saline (1000mL) 1,000 ML 1000 ML IV (17:05)
[2023-06-18 17:08] LABS: Absolute Lymphocyte Count 1.68 X10^3/uL (0.83-4.51); Absolute Neutrophil Count 7.7 X10^3/uL (2.0-7.7); Basophil# 0.09 X10^3/uL; Basophil% 0.8 % (0-1); Eosinophil# 0.69 X10^3/uL; Eosinophils% 6.3 % (0-5); Hematocrit 43.5 % (37-47); Hemoglobin 13.7 g/dL (12.0-15.0); Lymphocyte # 1.68 X10^3/ul (0.83-4.51); Lymphocyte % 15.3 % (19-41); Mean Corp Hgb Conc 31.5 g/dL (32-36); Mean Corpuscular Hgb 25.9 pg (27.0-32.0); Mean Corpuscular Volume 82.2 fL (81-99); Mean Platelet Vol. 9.4 fl (6.2-12.0); Monocyte# 0.83 X10^3/uL; Monocyte% 7.6 % (0-10); NRBC Flagged by Analyzer 0 % (0-5); Neutrophil # 7.66 X10^3/uL (2.7-7.7); Neutrophil % 69.7 % (47-70); Platelet Count 577 K/mm3 (150-450); RBC Distribution Width CV 16.8 % (11.6-14.6); RBC Distribution Width SD 49.8 fl (35.1-43.9); Red Blood Count 5.29 M/mm3 (4.2-5.4)
--- NOTE | 2023-06-18 17:11 | RAD_ITS ---
INDICATION: chest pain EXAMINATION/TECHNIQUE: X-RAY - XR Chest 1 View COMPARISON: 04/28/2017 FINDINGS: The lungs are clear. The cardiomediastinal silhouette is unremarkable. Right-sided chest port. No pleural effusion or pneumothorax. No acute osseous abnormalities. RAD/Chest 1 View (Portable) IMPRESSION: No acute radiographic abnormalities. Electronically Signed: Addy Mei MD at 18:14 EST ,
--- NOTE | 2023-06-18 17:12 | CT_ITS ---
EXAMINATION : Head CT w/out contrast HISTORY : Trauma COMPARISON : None. TECHNIQUE : Multiple contiguous axial images were obtained from the skull base to the vertex without intravenous contrast. A radiation dose optimization technique was used for this scan. FINDINGS : There is no evidence for acute intracranial hemorrhage, mass effect, or midline shift. There is no extra-axial fluid collection. There are periventricular white matter changes consistent with chronic microvascular ischemic disease. There is sulcal widening and ventricular enlargement consistent with cerebral atrophy. There is normal jennings-white differentiation, without CT evidence of acute ischemia or infarct. The skull base and calvarium are unremarkable. The orbits are unremarkable. The paranasal sinuses are clear. The mastoid air cells are well-aerated. The soft tissues are unremarkable. CT/Brain/Head without Contrast IMPRESSION: No acute intracranial abnormality. Chronic involutional and ischemic changes of the brain. Electronically Signed: Addy Mei MD at 18:13 EST ,
[2023-06-18 17:28] LABS: Anion Gap 5 (5-15); BUN 32 mg/dL (7-18); BUN/Creat Ratio 30.8 RATIO (10-20); Calcium,Total 9.6 mg/dL (8.5-10.1); Chloride 109 mmol/L (98-107); Creatinine, Serum 1.04 mg/dL (0.55-1.02); EST Glomerular Filtration Rate 58 mL/min (>60); Est Glom Filt Rate - Afr Amer 70 mL/min (>60); Estimated Creatinine Clearance 55.63 ml/min; Glucose 169 mg/dL (74-106); Potassium 3.8 mmol/L (3.5-5.1); Sodium Level 138 mmol/L (136-145); Troponin-I HS (w/2H Reflex) 11 pg/mL (3.0-54.0)
[2023-06-18 17:42] LABS: Lactic Acid 1.5 mmol/L (0.4-1.9)
--- NOTE | 2023-06-18 18:37 | ED.RN ---
RN HEARD PATIENT YELLING FROM NURSES STATION. RN ENTERS PATIENTS ROOM. BEFORE ASKING PATIENT WHAT SHE NEEDED PT BEGAN YELLING AT RN STATING SHE HAS BEEN HERE FOR AN HOUR AND A HALF AND NO ONE HAS COME TO FUCKING CHECK ON HER. PT CONTINUES TO SWEAR AT RN. RN STATES WE WILL NOT USE THAT KIND OF LANGUAGE TOWARD STAFF. PT STATES FUCK YOU AND BEGINS THROWING EKG STICKERS. TOYIN MURGUIA ENTERS PATIENTS ROOM ASKING WHAT IS GOING ON. PT BEGINS YELLING AT SHANTAL, THROWING EKG STICKERS AT HER. SHANTAL STATES YOU WILL NOT THROW THINGS AT STAFF OR ELSE YOU CAN LEAVE. TOYIN FRANKS ENTERS PATIENTS ROOM. GOLDEN INFORMS PATIENT SHE CAN LEAVE IF THIS IS HOW SHE IS GOING TO TREAT STAFF. THROWING THINGS AND CUSSING AT STAFF WILL NOT BE TOLERATED. PT GRABS STACYS ARMS. TOYIN MURGUIA INFORMS PATIENT SHE WILL NOT GRAB STAFF. PT STATES I'M NOT GOING TO TELL YOU WHEN I HIT YOU. RN ASKED TO LEAVE PATIENTS ROOM BY DIP BRAZIER. REMAINING RNS ATTEMPT TO REMOVE PATIENTS IV SO SHE CAN LEAVE PER HER REQUEST BUT REFUSING TO LEAVE EMERGENCY ROOM. TOYIN MURGUIA ASKING FOR RESTRAINTS DUE TO PATIENT BEING AGGRESSIVE TOWARD STAFF. THIS RN INFORMS STAFF WE CANNOT RESTRAIN HER AT THIS TIME. THIS RN REQUESTED PD BE CALLED. DR. CERDA NOTIFIED OF INCIDENT AND AT BEDSIDE TO TALK WITH PATIENT ABOUT PLAN OF CARE.
[2023-06-18] MEDS: Ondansetron 4 MG/2 ML Vial IV (18:42)
[2023-06-18] MEDS: Morphine 4 MG/ML Syringe IV (18:42)
[2023-06-18 19:05] LABS: Reflex Troponin-HS? (from REC) Y
[2023-06-18 19:21] LABS: Troponin-I HS 18 pg/mL (3.0-54.0)
--- OUTSIDE RECORDS SUMMARY | 2023-06-18 20:07 | XMS RPT_ITS | CCD ---
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 Name Role Phone FENZL, JAMES E Unavailable Unavailable FENZL, JAMES E Unavailable Unavailable FENZL, JAMES E Unavailable Unavailable NO, DOCTOR ON Unavailable Unavailable NO, DOCTOR ON Unavailable Unavailable Nash MELLO MD, Daesung Unavailable Osiel MELLO, Dorene Phillips Primary Care Provider Nash MELLO, Dasebastiánung Unavailable DORENE CARTAGENA Referring Unavailable DORENE CARTAGENA Primary Care Unavailable DEONDRE BELTRAN Attending Unavailab Leann Alvarez Attending Unavailable DORENE CARTAGENA Primary Care Unavailable MASCI, JOHN A Referring Unavailable CHRISTIANO, NAGA Referring Unavailable DORENE CARTAGENA Primary Care Unavailable NAYELI RAZA Attending Unavailab DORENE Ibarra Primary Care Unavailable MASCI JOHN A Referring Unavailable MASCI, JOHN A Referring Unavailable JELLYTAUzma, DORENE R Primary Care Unavailable OSIEL, DORENE R Primary Care Unavailable MASCI, JOHN A Referring Unavailable JELLYTADORENE Gusman R Primary Care Unavailable MASCI, JOHN A Referring Unavailable CHRISTIANO, NAGA Referring Unavailable JELLYTADORENE Gusman R Primary Care Unavailable CHRISTIANO, NAGA Referring Unavailable JELLYTADORENE Gusman R Primary Care Unavailable MASCI JOHN A Attending Unavailable DORENE CARTAGENA Attending Unavailable CHRISTIANOJOSIEN Attending Unavailable Allergies Allergy Classification Reported Allergen(s) Allergy Type Date of Onset Reaction(s) Facility (2 sources) codeine; Translations: [CODEINE] Drug Allergy 0 [facility] (1 source) penicillin Drug Allergy [facility] (5 sources) Codeine Drug Allergy 0 Anaphylaxis [facility] (17 sources) Penicillins; Translations: [PENICILLINS] Propensity to adverse reactions 0 [facility] (17 sources) Bees; Translations: [BEES] Propensity to adverse reactions 0 [facility] Medications Current Medications Medication Drug Class(es) Dates Sig (Normalized) Sig (Original) cefdinir 300 mg oral capsule (3 sources) Cephalosporin Antibacterial Start: 04-04-2023 End: 04-14-2023 take 1 capsule by mouth twice daily cefdinir (OMNICEF) 300 mg capsule Take 1 capsule by mouth two times a day for 10 days. 20 capsule 0 04/04/2023 04/14/2023 Active Completed/Discontinued Medications Medication Drug Class(es) Dates Sig (Normalized) Sig (Original) acetaminophen 250 mg / aspirin 250 mg / caffeine 65 mg oral tablet (15 sources) Platelet Aggregation Inhibitor, Nonsteroidal Anti-inflammatory Drug, Central Nervous System Stimulant, Methylxanthine take 1 tablet by mouth every six hours as needed Aspirin-Acetamino phen-Caffeine (EXCEDRIN) 250-250-65 mg per tablet Take 1 tablet by mouth every 6 hours as needed for pain. 0 Active Problems Active Problems Problem Classification Problem Date Documented Da te Episodic/Chronic Anal and rectal conditions (2 sources) Rectal mass; Translations: [Other specified diseases of anus and rectum] 04-04-2023 Episodic Anxiety disorders (15 sources) Mixed anxiety and depressive disorder; Translations: [Anxiety disorder, unspecified] Onset: 3 12-09-2012 Chronic Blindness and vision defects (15 sources) Visual impairment; Translations: [Unspecified visual loss] Onset: 3 03-25-2023 Chronic Cancer of rectum and anus (20 sources) Malignant tumor of rectum; Translations: [Malignant neoplasm of rectum] Onset: 7 04-11-2017 Chronic Congestive heart failure; nonhypertensive (3 sources) Congestive heart failure; Translations: [Heart failure, unspecified] Onset: 4 04-04-2023 Chronic Essential hypertension (18 sources) Hypertensive disorder; Translations: [Essential (primary) hypertension] Onset: 3 12-09-2012 Chronic Genitourinary symptoms and ill-defined conditions (1 source) Mixed urinary incontinence; Translations: [Mixed incontinence] 04-04-2023 Chronic Menstrual disorders (15 sources) Menorrhagia; Translations: [Excessive and frequent menstruation with regular cycle] Onset: 3 12-09-2012 Chronic Mood disorders (15 sources) Bipolar disorder; Translations: [Bipolar disorder, unspecified] Onset: 3 12-09-2012 Chronic Other connective tissue disease (1 source) Acquired trigger finger; Translations: [Trigger finger, unspecified finger] 05-29-2023 Episodic Other gastrointestinal disorders (1 source) Fecal soiling co-occurrent and due to fecal incontinence; Translations: [Full incontinence of feces] 04-04-2023 Episodic Other gastrointestinal disorders (1 source) Incontinence of feces; Translations: [Full incontinence of feces] 04-04-2023 Episodic Other injuries and conditions due to external causes (15 sources) Injury of head; Translations: [Unspecified injury of head, initial encounter] Onset: 3 03-25-2023 Episodic Other nervous system disorders (3 sources) Carpal tunnel syndrome of right wrist; Translations: [Carpal tunnel syndrome, right upper limb] 04-04-2023 Chronic Other nervous system disorders (1 source) Carpal tunnel syndrome, right upper limb; Translations: [Carpal tunnel syndrome, right] Onset: 4 Chronic Other nutritional; endocrine; and metabolic disorders (15 sources) Obese class I; Translations: [Obesity, unspecified] Onset: 3 12-09-2012 Chronic Other screening for suspected conditions (not mental disorders or infectious disease) (2 sources) Electrocardiogram abnormal; Translations: [Abnormal electrocardiogram [ECG] [EKG]] 04-04-2023 Episodic Residual codes; unclassified (15 sources) Amnesia; Translations: [Other amnesia] Onset: 3 03-25-2023 Episodic Past or Other Problems Problem Classification Problem Date Documented Da te Episodic/Chronic Hemorrhoids (15 sources) Hemorrhoids; Translations: [Unspecified hemorrhoids] Onset: 12-09-2012 12-09-2012 Episodic Other inflammatory condition of skin (3 sources) Pruritus, unspecified; Translations: [Pruritus, unspecified] Onset: 11-17-2016 Episodic Residual codes; unclassified (15 sources) Tobacco user; Translations: [Tobacco use] Onset: 12-09-2012 12-09-2012 Episodic Results Test Name Value Interpretation Reference Range Facil ity Vital Signs Date Time Vital Sign Value Performing Clinician Jed krueger 06-11-2023 13:53-0500 Body height 170.2 cm ALBA Reyes MD Work Phone: [facility] 06-11-2023 13:53-0500 Body temperature 97.7 [degF] ALBA Reyes MD Work Phone: [facility] 06-11-2023 13:53-0500 Body weight 58.06 kg ALBA Reyes MD Work Phone: [facility] 06-11-2023 13:53-0500 Heart rate 84 /min ALBA Reyes MD Work Phone: [facility] 06-11-2023 13:53-0500 SaO2% (BldA) [Mass fraction] 99 % ALBA Reyes MD Work Phone: [facility] 06-05-2023 13:30-0500 Body weight 55.1 kg Deondre Beltran DO Work Phone: [facility] 06-05-2023 13:30-0500 Diastolic blood pressure 88 mm[Hg] Deondre Beltran DO Work Phone: [facility] 06-05-2023 13:30-0500 Heart rate 82 /min Deondre Beltran DO Work Phone: [facility] 06-05-2023 13:30-0500 SaO2% (BldA) [Mass fraction] 97 % Deondre Beltran DO Work Phone: [facility] 06-05-2023 13:30-0500 Systolic blood pressure 142 mm[Hg] Deondre Beltran DO Work Phone: [facility] 04-04-2023 15:18-0500 Body weight 58.97 kg Dorene Cartagena MD Work Phone: [facility] 04-04-2023 15:18-0500 Diastolic blood pressure 123 mm[Hg] Dorene Cartagena MD Work Phone: [facility] 04-04-2023 15:18-0500 Heart rate 81 /min Dorene Cartagena MD Work Phone: [facility] 04-04-2023 15:18-0500 SaO2% (BldA) [Mass fraction] 96 % Dorene Cartagena MD Work Phone: [facility] 04-04-2023 15:18-0500 Systolic blood pressure 174 mm[Hg] Dorene Cartagena MD Work Phone: [facility] Encounters Encounter Date Encounter Type Care Provider Facility Start: 06-16-2023 Telephone encounter I Obed quiroz MD Work Phone: Colorectal Surgery Procedures Date Procedure Procedure Detail Performing Clinician Start: 05-29-2023 Injection therapeuti c carpal tunnel Nayeli Raza DO Work Phone: Start: 05-29-2023 Injection 1 tendon sheath/ligament aponeurosis Nayeli Raza DO Work Phone: Start: 04-04-2023 Ecg routine ecg w/le ast 12 lds i&r only [facility] Provider Start: 04-04-2023 Blood count complete automated Dorene Cartagena MD Work Phone: Start: 05-14-2017 Colonoscopy John Dubon DO Work Phone: Start: 12-18-2015 Lipid 1996 panel - S fadumo or Plasma John Dubon DO Work Phone: Plan of Treatment Date Care Activity Detail Author Start: 06-11-2028 Screening for malignant neoplasm of colon Sigmoidoscopy [facility] Start: 05-15-2026 Diabetes Screening Diabetes Screenin g [facility] Start: 04-04-2026 Diabetes Screening Diabetes Screenin g [facility] Start: 05-21-2024 Screening for malignant neoplasm of lung Lung Cancer Screening [facility] Start: 04-04-2024 Annual PCP Team Chronic Disease Visit Annual PCP Team Chronic Disease Visit [facility] Start: 03-25-2024 Annual PCP Team Chronic Disease Visit Annual PCP Team Chronic Disease Visit [facility] Start: 06-13-2023 End: 09-12-2023 CBC panel - Blood by Automated count CBC Lab Routine Rectal cancer (HCC) Expected: 06/13/2023 (Approximate), Expires: 09/12/2023 [facility] Work Phone: Immunizations Immunization Date Immunization Notes Care Provider Federico gradyhuy 03-20-2017 influenza virus vacc ine, unspecified formulation Dorene Cartagena MD Work Phone: [facility] Payers Date Payer Category Payer Unknown GENEVIEVE VALLEJO P OLGA [id number] 2023-Present [phone] [address] [place] [address] Indemnity [id number] 2023 Unknown [id number] 2022 Medicaid [facility] [id number] 2022-Present [phone] [address] [place] [address] Medicaid [id number] 2022 Unknown [id number] Unknown [id number] Social History Date Type Detail Facility Start: 03-25-2023 End: 05-29-2023 Tobacco smoking status NHIS Smokes tobacco daily [facility] History of tobacco use Cigarette Smoker [facility] Start: 03-03-2023 End: 03-25-2023 Cigarettes smoked current (pack per day) - Reported 1.5 [facility] Start: 03-25-2023 End: 05-29-2023 Tobacco use and exposure Smokeless tobacco non-user [facility] Start: 03-25-2023 End: 06-11-2023 Alcohol intake Current non-drinker of alcohol (finding) [facility] Start: 03-03-2023 End: 03-25-2023 Tobacco use panel [facility] National Score (1-10 0), lower number is lower risk 70 [facility] Start: 03-25-2023 Tobacco Comment Pt has cut lito k to 1/3 pack daily. [facility] Start: 1965 Sex Assigned At Not on file [facility] Clinical Notes 06-22-2015 to 06-16-2023 Telephone Encounter - Mary Leon RN - 06/16/2023 8:37 AM ESTTelephone Encounter - Krystina Alanis - 06/16/2023 8:33 AM Leann Diaz MD - 06/11/2023 2:00 PM EST Note Date & Type Note Facility 06-16-2023 Miscellaneous Notes Assistant To The Ceo spoke with pt's daughter in law. Surgery is scheduled. Yeimy L Ankit is moving forward with surgery. documented in this encounter [facility] 06-13-2023 Miscellaneous Notes Assistant To The Ceo called pt with no answer.Assistant To The Ceo spoke to pt's daughter in law Julieth and she will look into the situation . [phone] asked to speak with Mary. It's an insurance issue and I told her our office doesn't work with insurance. documented in this encounter [facility] 06-12-2023 Miscellaneous Notes Pharmacy verified in [facility] Patient has been identified by name and date of : Yes Patient aware RX will be sent to pharmacy. No need to notify patient. Patient phones for refill(s): Requested Prescriptions Pending Prescriptions Disp Refills ibuprofen (MOTRIN) 800 mg tablet 90 tablet 0 Sig: Take 1 tablet by mouth every 8 hours as needed for pain. Take with food. Date of last office visit : 04/04/2023 Date of next office visit : Visit date not found Last 2 Encounter Wt Readings: Date: Wt: 06/11/2023 58.1 kg (128 lb) 06/05/2023 55.1 kg (121 lb 7.6 oz) Not applicable Please advise. Nathaly Reyes LPN documented in this encounter [facility] 06-11-2023 History and physical note COLORECTAL SURGERY New Patient Visit June 10, 2023 Chief Complaint: Rectal Cancer (constipation) History of Present Illness: : Yeimy Damon is a 57 year old year old female referred by Dr Dubon for the surgical consultation for her possible reoccurring rectal cancer. She was admitted to [facility] in February 2023 for complaints of abdominal pain, rectal bleeding and change in bowel habits. Patient had a CT A/P at [facility] 04/08/2023 that showed there were several nondistended fluid-filled small bowel loops in the pelvis, circumferential wall thickening of the rectum was noted, and there was narrowing of the lumen. She had an OV with Dr Dubon on 05/15/2023 and it was recommended that she Continue use of laxative regimen, Labs today, Stat CT chest, abdomen pelvis, Referral to [facility] for exam, biopsy and potential palliative colostomy, Palliative care referral, Social work consult, and to Follow-up after CT scan. XR or the ABD showed No definite bowel instrumentation and nonspecific findings of feces throughout most of the colon. CEA is 1.0. CT A/P/C showed Rectal wall thickening with left-sided nodule, Mildly enlarged retroperitoneal lymph nodes, and Moderate stool burden. History of illness (notes were copied from OSH in [place], [place] and from verbal reports from her [id number]): She had a colonoscopy on04/03/2017. There was a distal friable rectal mass measuring 1-2 cm in thickness it extended right up to the dentate line and was circumferential. Biopsies were obtained. Pathology resulted in fragments of tubulovillous adenoma with focal high-grade dysplasia/carcinoma in situ with associated ulceration. She had a rectal exam and repeat colonoscopy under anesthesia on 10/08/2017. Multiple biopsies were performed and the pathology was definitive for invasive well-differentiated colonic adenocarcinoma and a left lateral anal mass biopsy and left lateral rectal biopsy. There was also a positive biopsy from the left lateral proximal rectum. MMR was proficient. Staging MRI demonstrated low rectal tumor measuring up to 8 cm in length and extending to the level of the anal verge with extension into the iliococcygeal and puborectalis muscle with involvement of the internal and external sphincter. She received 6 cycles of neoadjuvant chemotherapy with FOLFOX 6 followed by concurrent 5-fluorouracil/leucovorin with radiation. MRI 10/27/2018 demonstrated no residual tumor mass. The sphincter appeared normal. There was complex with mild residual T2 hypointense signal in the in the intersphincteric fat likely representing fibrosis. No regional or extra regional metastatic adenopathy was observed. She then underwent tumor excision on 01/18/2019 at [facility] evidently without complication. The surgical report and pathology report not available. She declined to follow up with her physicians in [place] and then she moved back to [place] 11/2022. Eating/drinking limited. Sticks with liquids, soft diet to allow stuff to pass. Weight has been relatively stable. Deals with incontinence and persistent rectal pain. Hx: HTN, bipolar, substance abuse 05/21/2023 CT A/P/C IMPRESSION: Rectal wall thickening with left-sided nodule. Please clinically correlate. No mass lesion seen in the liver. Mildly enlarged retroperitoneal lymph nodes. Right renal stone/calcification. Low-attenuation lesions or cysts in the kidneys. Moderate stool burden. Narrowing of the proximal segment of the SMA with mural thrombus. IMPRESSION: Scattered calcifications/calcified granulomas in the bilateral lungs. 4 mm nodule along the right major fissure likely representing intrapulmonary lymph node. No CT evidence of lymphadenopathy in the chest. 05/15/2023 CEA 1.0 05/15/2023 XR ABD IMPRESSION: No definite bowel instrumentation. Nonspecific findings of feces throughout most of the colon. 05/15/2023 OV with Masci ASSESSMENT/PLAN: (C20) Rectal cancer (HCC) (primary encounter diagnosis) Assessment: -The patient is a 57-year-old female who was diagnosed with a cT3-4 NX M0 adenocarcinoma of the rectum in 2018. -Managed with neoadjuvant chemotherapy followed by concurrent chemotherapy and radiation and then endoscopic resection. -Now with locally recurrent disease. -CT 04/08/2023 at [facility] did not demonstrate abdominal pelvic metastases. No chest imaging. -She is becoming more obstructed. Plan: -Plain film of the abdomen today. -Continue use of laxative regimen. -Labs today. -Stat CT chest, abdomen pelvis. -Referral to Dr. Nevarez for exam, biopsy and potential palliative colostomy. -Palliative care referral. -Social work consult. -Follow-up after CT scan. 04/08/2023 CT A/P ([facility]; images under get images) Study demonstrated normal liver. Normal pancreas. The cyst was noted in the medial lower pole of the left kidney measuring 2.5 x 2.1 cm. There were several nondistended fluid-filled small bowel loops in the pelvis. Circumferential wall thickening of the rectum was noted. There is narrowing of the lumen. 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 PAST MEDICAL HISTORY Diagnosis Date Anxiety Dr. Terrell [facility] Psychiatrist ASCUS (atypical squamous cells of undetermined significance) on Pap smear had LEEP procedure Bipolar 1 disorder (HCC) Dr. Terrell [facility] Psychiatrist CHF (congestive heart failure) (HCC) 2022 Colorectal cancer (HCC) [address] Terrell [facility] Psychiatrist Fibromyalgia Hemorrhoid History of alcohol abuse 12/09/2012 quit 1.5 years ago History of cocaine abuse (HCC) 12/09/2012 quit 1.5 years ago Hypertension Seizures (HCC) per patient Thrombocytosis Dr. Dubon, from previous splenectomy PAST SURGICAL HISTORY Procedure Laterality Date LEEP PROCEDURE ([facility])_*FL 04/28/1999 LIG/TRNSXJ FLP TUBE ABDL/VAG APPR UNI/BI Tubal ligation PAST SURGICAL HISTORY OF 2019 Tumor excision SPLENECTOMY,GASTROESOPHAGEAL DEVASCULARIZA 04/28/1995 Current Outpatient Medications Medication Sig Dispense Refill amLODIPine (NORVASC) 5 mg tablet Take 1 tablet by mouth once daily. 30 tablet 11 docusate sodium (COLACE) 100 mg capsule Take 100 mg by mouth as needed for constipation. ibuprofen (MOTRIN) 800 mg tablet Take 1 tablet by mouth every 8 hours as needed for pain. Take with food. 90 tablet 0 lidocaine HCL (ASPERFLEX) 4 % ointment Apply to affected area three times a day. 100 g 2 enteric contrast (will be provided with radiology test) For CT ABD/PEL W IVCON Routine order Administer, As Directed One Time Only, via Oral, Rectal, both Oral and Rectal, Enteric Tube, Stoma or Indwelling Catheter, Enteric Contrast as designated per enteric contrast guidelines 1 Each 0 lisinopril (ZESTRIL) 40 mg tablet Take 1 tablet by mouth once daily. 30 tablet 2 furosemide (LASIX) 20 mg tablet Take 1 tablet by mouth once daily. 30 tablet 2 Blood Pressure Monitor Check blood pressure weekly and as needed. 1 Each 2 Underpads 30 X 30 pads 1 Each three times a day. 300 Each 5 Diaper,Brief, Adult,Disposable 1 Each five times a day. 120 Each 5 Rbmpuyq-Lgapjbglkmufs-Ybdfpful (EXCEDRIN) 250-250-65 mg per tablet Take 1 tablet by mouth every 6 hours as needed for pain. Miscellaneous Medical Supply (BLOOD PRESSURE CUFF) 1 Each once daily. 1 Each 0 Arm Brace (WRIST BRACE) misc 1 Each once daily. 1 Each 0 albuterol (PROVENTIL) 2.5 mg /3 mL (0.083 %) nebulizer solution use 1 (ONE) vial in a NEBULIZER EVERY 4 HOURS NEEDED NEEDED FOR WHEEZING (Patient not taking: Reported on 06/11/2023) 0 albuterol HFA (VENTOLIN HFA) 90 mcg/actuation inhaler Inhale 2 Puffs as instructed every 4 hours as needed for Wheezing/Shortness of Breath. (Patient not taking: Reported on 06/11/2023) 1 Inhaler 0 No current facility-administered medications for this visit. ALLERGIES Allergen Reactions Bees Penicillins Review of Systems / PACC screen: Do you have difficulty climbing a full flight of stairs without feeling short of breath? yes Do you require oxygen for your breathing or have your gone to an emergency department because of breathing problems? yes Are you on dialysis or have you been told that your kidneys do not work well as they should? no Do have an implanted cardiac device (pacemaker, defibrillator etc.) that has not been checked in the last 6 months? no Have you had an organ transplant? no Have you been told that you had excessive bleeding during surgical procedures or do you take blood thinning medications other than aspirin? no Have you ever had a heart attack, heart stents/surgery, valve problems, or other heart problems? Yes, HTN & CHF Have you had a stroke, seizures, or unexplained loss of consciousness? Yes, last seizure in April 2023 & history of loss of consciousness Do you have a neurologic condition like Parkinson's disease or multiple sclerosis? no Have you or a blood relative had a life-threatening reaction to anesthesia? no Do you have cirrhosis of the liver or other liver disease? no Have you had a blood clot within the past year? no Do you take insulin or other injections for diabetes? no Do you have sleep apnea or have you been told you may have sleep apnea? Yes, TEENA work up Do you have other implanted devices (deep brain stimulator, spinal cord stimulator, etc.)? Yes, chemo port Physical Exam: Pulse 84 Temp 36.5 C (97.7 F) (Temporal) Ht 170.2 cm (5' 7 ) Wt 58.1 kg (128 lb) LMP 04/02/2017 SpO2 99% BMI 20.05 kg/m General Appearance: Well appearing, alert, in no acute distress, well-hydrated, well nourished. Lungs: Lungs clear to auscultation. No wheezing, rhonchi, rales. Heart: RRR without murmur, gallop, or rubs. No ectopy Edema: no Abdomen: Normal abdominal exam, Abdomen soft, non-tender. Bowel sounds normal. 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 Partially obstructing firm hard rectal mass protruding through anal canal. Assessment Medical Decision Making: Assessment & Diagnosis: Yeimy Damon is a 57 year old female referred by Dr Dubon for the surgical consultation for her possible reoccurring rectal cancer Data Reviewed: Tests & Documents Reviewed/ordered: Review of Pathology Review of Imaging: CT Abdomen, CT Pelvis, CT Chest Review of Labs: CEA Review of Procedures / Tests: [facility] interpreted: CT Abdomen, CT Pelvis, CT Chest I have discussed Yeimy Damon's treatment plan and/or results with patient. Treatment plan: Firm hard mass on exam consistent with a recurrent rectal cancer. This is causing her pain, partial obstruction, and incontinence. Single incision Laparoscopic diverting colostomy for symptom improvement Stoma marking MRI pelvis to assess extent of disease Leann Reyes MD Colorectal Surgery Risk of morbidity, mortality and/or complications of treatment plan: moderate documented in this encounter [facility] 06-10-2023 Miscellaneous Notes Assistant To The Ceo spoke with pt's daughter in law, who is an RN at [employer], and left a VM for pt regarding obtaining more records from her treatment in [place] for rectal CA. Daughter verbalized to financial writer that her mother in law was first diagnoses with Rectal CA in 2018 in [place], [place]. She had chemo and radiation and a small resection of her rectum in 2019. She was then in remission. Pt has not has any scopes since 2019 in [place]. documented in this encounter [facility] 06-10-2023 Miscellaneous Notes Called to schedule appt. Home phone listed is non working. Called daughter. No answer. Left voicemail regarding scheduling appt in Clinic. Naga Rosenthal APRN.VIDA documented in this encounter [facility] 06-05-2023 Note HNO ID: [id number] Author: DEONDRE BELTRAN, DO Service: ? Author Type: Physician Type: Progress Notes Filed: 06/05/2023 14:24 Note Text: [facility] SECTION OF [facility] CARDIOLOGY [facility] OUTPATIENT VISIT DATE June 05, 2023 PRIMARY CARE PHYSICIAN: Dorene Cartagena [address] [place] [address] [place] [address] HISTORY OF PRESENT ILLNESS: Ms. Damon is a 57 year old female. The patient presents for evaluation treatment options of chronic probable diastolic heart failure and hypertension. She presents with her caregiver. She admits to dyspnea with unknown amount of exertion, abating with rest. She denies anginal sounding chest discomfort, orthopnea, paroxysmal nocturnal dyspnea, palpitations, near-syncope or syncope. The patient was residing in the [facility] at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 Psych: Pleasant, good affect and mood General Appearance: Well appearing, alert, in no acute distress, well-hydrated, well nourished.. Skin: Skin color, texture, turgor normal, no suspicious rashes or lesions. Peripheral Pulses: Normal. Neurologic: Gait normal. Reflexes normal and symmetric. Sensation grossly intact.. Lymph Nodes: No cervical lymphadenopathy, No supraclavicular lymphadenopathy, No axillary lymphadenopathy., and No inguinal lymphadenopathy.. Respiratory: No recent pulmonary infection, hemoptysis, chronic cough, or shortness of breath at rest Rheumatologic: Joint deformities: right cts and left middle trigger figner Right Hand Exam Tenderness The patient is experiencing tenderness in the palmar area. Range of Motion The patient has normal right wrist ROM. Wrist Extension: normal Flexion: normal Pronation: normal Supination: normal Muscle Strength The patient has normal right wrist strength. Tests Phalen s sign: positive Tinel's sign (median nerve): positive Rupinder's test: negative Other Erythema: absent Sensation: normal Pulse: present Comments: B/l uln/rad/ax nerves intact Dec med nerve right, peripheral neur at baseline from chemo, worse in med nerve distribution Left Hand Exam Tenderness The patient is experiencing tenderness in the palmar area. Range of Motion The patient has normal left wrist ROM. Wrist Extension: normal Flexion: normal Pronation: normal Supination: normal Muscle Strength The patient has normal left wrist strength. Tests Phalen s Sign: negative Tinel's sign (median nerve): negative Rupinder's test: negative Other Erythema: absent Sensation: normal Pulse: present Comments: Triggering left middle finger/locking on exam Imaging: Last XR Hand/Finger - Impression Only No resulted procedures found. Assessment and Plan: Impression: Encounter Diagnosis ICD-10-CM 1. Trigger finger, acquired M65.30 2. Carpal tunnel syndrome, right G56.01 Plan: Today, in detail, through a thorough evaluation, we discussed possible etiologies of pain and our plans for further diagnostic and therapeutic interventions. We discussed strategies for decreasing pain and improving strength, stability and motion. Patient's questions were answered in detailed. Patient verbalizes understanding and agrees with the treatment plan as discussed. Discussed with patient possible options for treatment. Patient elected proceed with injection. Patient told not to submerge the injected area for 24 hours in a hot tub, or bath, injection may take 2 weeks for improvement to be noticed, follow-up in 2 -6 weeks if symptoms do not resolve. All questions answered patient agreement of plan. Apply ice Limit activities as discussed Rest Do not submerge limb in water for 24 hours Cont current meds Watch sugars/decrease carbs Call if warm/hot/red Discussed with patient that if the injection does not work after 2 to 4 weeks to come back for reevaluation. Discussed the next 3 days may feel worse before it feels better. Discussed if having continued pain to return. May get injection every 3 months Discussed with alejandro seay to get injections d/t local recurrence of rectal ca and wouldn't hinder or delay current treatment/care Nayeli Raza D.O. M.P.H. documented in this encounter [facility] 05-21-2023 Note HNO ID: [id number] Author: MICHAEL FERRER RT(R) Service: ? Author Type: Boarder Hand Type: Progress Notes Filed: 05/21/2023 16:02 Note Text: Radiology Service Progress Note DATE OF SERVICE: May 21, 2023 TIME: 4:01 PM PATIENT IDENTITY VERIFICATION COMPLETED USING TWO (2) STANDARD IDENTIFIERS: Name and Date of confirmed by patient verbally. FALL SCREENING: Has the patient had 2 falls in the last year or 1 fall with injury or currently using an Ambulatory Assistive Device (Walker, Cane, Wheelchair, Crutches, etc.)? No PATIENT GENDER DATA: Female. status: : No status: NO. PATIENT RELEVANT IMPLANT DATA REVIEWED: Yes ALLERGIES: Reviewed and unchanged CONTRAST ALLERGY: NO. EXAM: CT -CONTRAST INDUCED NEPHROPATHY RISK FACTORS: Not applicable CREATININE: Creatinine Date Value Ref Range Status 05/15/2023 0.83 0.58 - 0.96 mg/dL Final 04/04/2023 0.82 0.58 - 0.96 mg/dL Final 12/18/2015 1.06 0.70 - 1.40 mg/dL Final Estimated Glomerular Filtration Rate Date Value Ref Range Status 05/15/2023 81 >=60 mL/min/1.73m? Final Comment: Estimated Glomerular Filtration Rate (eGFR) is calculated using the 2020 CKD-EPI creatinine equation. This equation utilizes serum creatinine, sex, and age as parameters. The creatinine assay has traceable calibration to isotope dilution-mass spectrometry. Refer to KDIGO guidelines for clinical interpretation. In patients with unstable renal function, e.g. those with acute kidney injury, the eGFR may not accurately reflect actual GFR. eGFR- Date Value Ref Range Status 12/18/2015 >60 Final P.O.C.T. RESULTS: POC done: Yes, See Lab Tab May 21, 2023 TREATMENT: N/A PERIPHERAL IV DATA: Ambulatory: A peripheral IV was started in the Left antecubital site with a Angio cath: 18 gauge. RADIOLOGY DEPARTMENT: CT; Exam(s) Completed: Chest Abdomen Pelvis SIGNATURE: RT Margaret(R) PATIENT NAME: Yeimy Damon DATE: May 21, 2023 TIME: 4:01 PM [facility] 05-15-2023 Note HNO ID: [id number] Author: MORGAN LOPEZ RT(R) Service: Radiology Author Type: Technologist Type: Progress Notes Filed: 05/15/2023 13:43 Note Text: Radiology Service Progress Note PATIENT NAME: Yeimy Damon DATE OF SERVICE: May 15, 2023 TIME: 1:31 PM PATIENT IDENTITY VERIFICATION COMPLETED USING TWO (2) IDENTIFIERS: Name and Date of confirmed by patient verbally. FALL SCREENING: Has the patient had 2 falls in the last year or 1 fall with injury or currently using an Ambulatory Assistive Device (Walker, Cane, Wheelchair, Crutches, etc.)? No PATIENT GENDER DATA: Female. status: : No status: NO. PATIENT RELEVANT IMPLANT DATA REVIEWED: Yes RADIOLOGY DEPARTMENT: General X-ray: Exam(s) Completed: Abdomen X-Ray: Abdomen PERIPHERAL IV DATA: Not applicable SIGNED BY: RT Yakelin(R) May 15, 2023 1:31 PM [facility] 05-15-2023 Note HNO ID: [id number] Author: JOHN DUBON, DO Service: ? Author Type: Physician Type: Progress Notes Filed: 05/15/2023 13:10 Note Text: Oncologic problem(s): 1) Rectal cancer. HPI: The patient is a 57-year-old female's past medical history significant for hypertension. bipolar d/o and previous polysubstance abuse who was admitted to [facility] in February for complaints of abdominal pain, rectal bleeding and change in bowel habits. A CT scan of the abdomen and pelvis done in the ER on 03/19/2017 revealed findings consistent with minimal dependent atelectasis in both lung bases. Liver was noted to be unremarkable. Spleen was surgically absent. There were splenule's noted in the left upper quadrant. Pancreas is unremarkable. Circumferential wall thickening of the rectum was observed. There was a small midline herniation of fat in the epigastric region. Degenerative changes of the lumbar spine were also observed. Colonoscopy on 04/03/2017. There was a distal friable rectal mass measuring 1-2 cm in thickness it extended right up to the dentate line and was circumferential. Biopsies were obtained. Pathology: Fragments of tubulovillous adenoma with focal high-grade dysplasia/carcinoma in situ with associated ulceration. Presents today for transfer of care. Since last seen, patient had a rectal exam and repeat colonoscopy under anesthesia on 10/08/2017. Multiple biopsies were performed and the pathology was definitive for invasive well-differentiated colonic adenocarcinoma and a left lateral anal mass biopsy and left lateral rectal biopsy. There was also a positive biopsy from the left lateral proximal rectum. MMR was proficient. Staging MRI demonstrated low rectal tumor measuring up to 8 cm in length and extending to the level of the anal verge with extension into the iliococcygeal and puborectalis muscle with involvement of the internal and external sphincter. Patient received 6 cycles of neoadjuvant chemotherapy with FOLFOX 6 followed by concurrent 5-fluorouracil/leucovorin with radiation. MRI 10/27/2018 demonstrated no residual tumor mass. The sphincter appeared normal. There was complex with mild residual T2 hypointense signal in the in the intersphincteric fat likely representing fibrosis. No regional or extra regional metastatic adenopathy was observed. She then underwent tumor excision on 01/18/2019 at [facility] evidently without complication. Surgical report and pathology report not available. Moved back to [place] 11/2022. Patient had a CT scan of the abdomen pelvis at [facility] 04/08/2023. Study demonstrated normal liver. Normal pancreas. The cyst was noted in the medial lower pole of the left kidney measuring 2.5 x 2.1 cm. There were several nondistended fluid-filled small bowel loops in the pelvis. Circumferential wall thickening of the rectum was noted. There is narrowing of the lumen. 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 Subjectively tumor recurrence externally. Difficult time moving bowels. Most recent decent BM about 2 weeks ago. Has been using Colace and Fleets suppositories, warm prune juice with Beneful fiber. Can pass liquidly stools that way. Bloated. Bleeding--using adult diaper. Not requiring a pad or liner. Nausea and vomiting. Mild reflux. Milk and cold cream of mushroom soup helps. 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 PAST MEDICAL HISTORY Diagnosis Date Anxiety Dr. Terrell [facility] Psychiatrist ASCUS (atypical squamous cells of undetermined significance) on Pap smear had LEEP procedure Bipolar 1 disorder (HCC) Dr. Terrell [facility] Psychiatrist CHF (congestive heart failure) ([facility]) 2022 Colorectal cancer ([facility]) [address] Trerell [facility] Psychiatrist Fibromyalgia Hemorrhoid History of alcohol abuse 12/09/2012 quit 1.5 years ago History of cocaine abuse ([facility]) 12/09/2012 quit 1.5 years ago Hypertension Seizures ([facility]) per patient Thrombocytosis Dr. Dubon, from previous splenectomy PAST SURGICAL HISTORY Procedure Laterality Date LEEP PROCEDURE ([facility])_*FL 1999 LIG/TRNSXJ FLP TUBE ABDL/VAG APPR UNI/BI Tubal ligation SPLENECTOMY,GASTROESOPHAGEAL DEVASCULARIZA 1995 ALLERGIES Allergen Reactions Bees Codeine Anaphylaxis Penicillins Current Outpatient Medications Medication Sig lisinopril (ZESTRIL) 40 mg tablet Take 1 tablet by mouth once daily. furosemide (LASIX) 20 mg tablet Take 1 tablet by mouth once daily. ibuprofen (MOTRIN) 800 mg tablet Take 1 tablet by mouth every 8 hours as needed for pain. Take with food. iv contrast (will be provided with radiology test) CT Chest W -Inject, intravenously, once for 1 dose.No IV access, insert saline lock prior to the beginning of sedation, infusion, injection of imaging exam. Discontinue saline lock post exam. If Pt. (more content not included)... [facility] 04-09-2023 Note Patient Outreach (IN [facility]) YEIMY DAMON ([id number]) 1965 F Date Time Provider Department 04/09/23 DORENE CARTAGENA During your visit today, we recorded the following information about you: Allergies As of Date: 04/09/2023 Noted Allergy Reaction BEES 09/01/2009 CODEINE 09/01/2009 10 - Anaphylaxis PENICILLINS 09/01/2009 Date Reviewed: 04/04/2023 Reviewed by: Nathaly Reyes LPN - Fully Assessed Visit Diagnosis:Encounter for screening mammogram for breast cancer [Z12.31] Order(s):[facility] SCREENING [[id number]] Order #: [id number] FUTURE Prescriptions as of 04/14/2023 - lisinopril (ZESTRIL) 40 mg tablet Take 1 tablet by mouth once daily. - furosemide (LASIX) 20 mg tablet Take 1 tablet by mouth once daily. - cefdinir (OMNICEF) 300 mg capsule Take 1 capsule by mouth two times a day for 10 days. - lidocaine HCL (ASPERFLEX) 4 % ointment Apply to affected area three times a day. - Blood Pressure Monitor Check blood pressure weekly and as needed. - Underpads 30 X 30 pads 1 Each three times a day. - Diaper,Brief, Adult,Disposable 1 Each five times a day. - Pahxjqn-Vyfvhamoytcjr-Zhosjhmj (EXCEDRIN) 250-250-65 mg per tablet Take 1 tablet by mouth every 6 hours as needed for pain. - Miscellaneous Medical Supply (BLOOD PRESSURE CUFF) 1 Each once daily. - Arm Brace (WRIST BRACE) misc 1 Each once daily. - ibuprofen (MOTRIN) 800 mg tablet Take 1 tablet by mouth every 8 hours as needed for pain. Take with food. - albuterol (PROVENTIL) 2.5 mg /3 mL (0.083 %) nebulizer solution use 1 (ONE) vial in a NEBULIZER EVERY 4 HOURS NEEDED NEEDED FOR WHEEZING - albuterol HFA (VENTOLIN HFA) 90 mcg/actuation inhaler Inhale 2 Puffs as instructed every 4 hours as needed for Wheezing/Shortness of Breath. Problem List As Of Date 04/09/2023 Noted Resolved Obesity (BMI 30.0-34.9) [E66.9] 12/09/2012 Tobacco abuse [Z72.0] 12/09/2012 Hemorrhoid [K64.9] 12/09/2012 Blood in stool [K92.1] 12/09/2012 06/18/2017 Anxiety and depression [F41.9, F32.A] 12/09/2012 Bipolar disorder [F31.9] 12/09/2012 Menorrhagia [N92.0] 12/09/2012 Hypertension [I10] 12/09/2012 Family history of ischemic heart disease [Z82.4*06/22/2015 06/18/2017 Rectal cancer (HCC) [C20] 04/11/2017 Vision loss [H54.7] 03/25/2023 Head trauma [S09.90XA] 03/25/2023 Memory loss [R41.3] 03/25/2023 Encounter Status:Closed by EPIC, PRODUSER on 04/14/23 [facility] 04-08-2023 Miscellaneous Notes Received 04/08/2023 from [facility]. Placed in provider's inbox for review. Route to [place] for scanning. documented in this encounter [facility] 04-04-2023 Note HNO ID: [id number] Author: Dorene Cartagena MD Service: ? Author Type: Physician Type: Progress Notes Filed: 04/04/2023 4:47 PM Note Text: CHIEF COMPLAINT Patient presents with: Establish Care HISTORY OF PRESENT ILLNESS Yeimy Damon is a 57 year old female who presents here today to establish care. Last seen by Naga Jensen APRN.PLASTER FOREMAN on 03/25/2023. Ear - Feels like she has an ear infection - Endorses pain behind her ear. Rectal Cancer - Has been trying to be evaluated by oncologist in [place] regarding rectal cancer - Originally diagnosed in 2017. - Was treated in [place]. Had surgery, radiation and chemo treatment - Cancer returned approximately 9 months ago - Endorses rectal pain, bulging and constipation - Wear disposable briefs and pads - Eats very little, restricts food intake in fear of how her bowels will react Heart Failure - Diagnosed with CHF last year while living in [place] - Moved back to [place] in August of last year, prior to move she did not have any issues - States that she was not on any medication for management - Endorses shortness of breath, chest pain, and dizziness - Had a heart cath 10 years ago Hypertension - Currently managed on lisinopril 20 mg tablet once daily - BP elevated upon arrival to office at 174/123 Health Maintenance: Due for Covid-19 Vaccine Due for Hib Vaccine (1 of 1- Risk 1- dose series) Due for Meningococcal Conjugate Vaccine (1- Risk 2- dose series) Due for Pneumococcal Vaccine Due for Meningococcal B Vaccine Due for Hep C Screening Due for HIV Screening Due for BP Controlled (<130/80) Due for DTaP, Tdap, Td Vaccine Due for Pap Testing Due for HPV Testing Due for Mammogram Screening Due for Lung cancer Screening Due for Shingrix Vaccine (1 of 2) Due for Colorectal Cancer Screening Due for Diabetes Screening Due for Lipid Screening Due for Influenza Vaccine Past, family and social history reviewed. PAST MEDICAL HISTORY PAST MEDICAL HISTORY Diagnosis Date Anxiety Dr. Terrell [facility] Psychiatrist ASCUS (atypical squamous cells of undetermined significance) on Pap smear Bipolar 1 disorder (HCC) Dr. Terrell [facility] Psychiatrist Depression Dr. Terrell [facility] Psychiatrist Fibromyalgia Hemorrhoid History of alcohol abuse 12/09/12 quit 1.5 years ago History of cocaine abuse (HCC) 12/09/12 quit 1.5 years ago Hypertension Thrombocytosis Dr. Dubon, from previous splenectomy PAST SURGICAL HISTORY Procedure Laterality Date LEEP PROCEDURE ([facility])_*FL 1999 LIG/TRNSXJ FLP TUBE ABDL/VAG APPR UNI/BI Tubal ligation SPLENECTOMY,GASTROESOPHAGEAL DEVASCULARIZA 1995 ALLERGIES Bees, Codeine, and Penicillins FAMILY HISTORY Problem Relation Age of Onset Psychiatry Mother Cancer Mother lung Diabetes Father Heart Brother age 60 Stroke Brother Breast Cancer Sister Psychiatry Brother Psychiatry Sister Breast Cancer Maternal Aunt Cancer Maternal Aunt Colon Cancer Maternal Uncle Social History Tobacco Use Smoking status: Every Day Packs/day: 1.50 Years: 40.00 Additional pack years: 0.00 Total pack years: 60.00 Types: Cigarettes Smokeless tobacco: Never Tobacco comments: Pt has cut back to 1/3 pack daily. Substance Use Topics Alcohol use: No Drug use: No REVIEW OF SYSTEMS General: chronically stressed. no weight changes, fevers or chills. HEENT: No sinus congestion, sore throat. +earache, +dizziness Cardiac: No chest pain, palpitations Resp: No wheeze. +cough, + shortness of breath GI: No reflux symptoms, food intolerance, bowel changes. +rectal pain +bulging +constipation +fecal incontinence : No urinary frequency, dysuria. +stress incontinence MS: No pain or joint complaints. PHYSICAL EXAMINATION BP (!) 174/123 Pulse 81 Wt 59 kg (130 lb) LMP 04/02/2017 SpO2 96% BMI 20.82 kg/m? Repeat BP: General: Alert, well developed, well nourished, no distress, pleasant and cooperative. HEENT: No adenopathy or thyromegaly R TM is red. Heart: Regular rate and rhythm. Normal S1 and S2. No murmurs, rubs, or gallops. Lungs: Clear to auscultation bilaterally. No respiratory distress. No wheezes, rales, or rhonchi. Abdomen: Soft, non-tender, no distention Extremities: Feet/ankles with subtle trace of edema, posterior tibial pulses full and symmetrical Health Maintenance: Covid-19 Vaccine(1) Never done Hib Vaccine(1 of 1 - Risk 1-dose series) Never done Meningococcal Conjugate Vaccine(1 - Risk 2-dose series) Never done Pneumococcal Vaccine(1 - PCV) Never done Meningococcal B Vaccine: Consider Based On Risk(1 of 4 - Increased Risk) Never done Hepatitis C Screening Never done HIV Screening Never done BP Controlled (<130/80) Never done DTaP,Tdap,Td Vaccine(1 - Tdap) Never done Pap Testing Never done HPV Testing Never done Mammogram Screening Never done Lung Cancer Screeni (more content not included)... [facility] 04-04-2023 History of Presen t illness Narrative CHIEF COMPLAINT Patient presents with: Establish Care HISTORY OF PRESENT ILLNESS Yeimy Damon is a 57 year old female who presents here today to establish care. Last seen by Naga Jensen APRN.CNP on 03/25/2023. Ear - Feels like she has an ear infection - Endorses pain behind her ear. Rectal Cancer - Has been trying to be evaluated by oncologist in [place] regarding rectal cancer - Originally diagnosed in 2017. - Was treated in [place]. Had surgery, radiation and chemo treatment - Cancer returned approximately 9 months ago - Endorses rectal pain, bulging and constipation - Wear disposable briefs and pads - Eats very little, restricts food intake in fear of how her bowels will react Heart Failure - Diagnosed with CHF last year while living in [place] - Moved back to [place] in August of last year, prior to move she did not have any issues - States that she was not on any medication for management - Endorses shortness of breath, chest pain, and dizziness - Had a heart cath 10 years ago Hypertension - Currently managed on lisinopril 20 mg tablet once daily - BP elevated upon arrival to office at 174/123 Health Maintenance: Due for Covid-19 Vaccine Due for Hib Vaccine (1 of 1- Risk 1- dose series) Due for Meningococcal Conjugate Vaccine (1- Risk 2- dose series) Due for Pneumococcal Vaccine Due for Meningococcal B Vaccine Due for Hep C Screening Due for HIV Screening Due for BP Controlled (<130/80) Due for DTaP, Tdap, Td Vaccine Due for Pap Testing Due for HPV Testing Due for Mammogram Screening Due for Lung cancer Screening Due for Shingrix Vaccine (1 of 2) Due for Colorectal Cancer Screening Due for Diabetes Screening Due for Lipid Screening Due for Influenza Vaccine Past, family and social history reviewed. PAST MEDICAL HISTORY PAST MEDICAL HISTORY Diagnosis Date An[facility] ASCUS (atypical squamous cells of undetermined significance) on Pap smear Bipolar 1 disorder (HCC) [facility] Psych[facility] Depression [facility] Psychiatrist Fibromyalgia Hemorrhoid History of alcohol abuse 12/09/12 quit 1.5 years ago History of cocaine abuse (HCC) 12/09/12 quit 1.5 years ago Hypertension Thrombocytosis Dr. Dubon, from previous splenectomy PAST SURGICAL HISTORY Procedure Laterality Date LEEP PROCEDURE ([facility])_*FL 1999 LIG/TRNSXJ FLP TUBE ABDL/VAG APPR UNI/BI Tubal ligation SPLENECTOMY,GASTROESOPHAGEAL DEVASCULARIZA 1995 ALLERGIES Bees, Codeine, and Penicillins FAMILY HISTORY Problem Relation Age of Onset Psychiatry Mother Cancer Mother lung Diabetes Father Heart Brother age 60 Stroke Brother Breast Cancer Sister Psychiatry Brother Psychiatry Sister Breast Cancer Maternal Aunt Cancer Maternal Aunt Colon Cancer Maternal Uncle Social History Tobacco Use Smoking status: Every Day Packs/day: 1.50 Years: 40.00 Additional pack years: 0.00 Total pack years: 60.00 Types: Cigarettes Smokeless tobacco: Never Tobacco comments: Pt has cut back to 1/3 pack daily. Substance Use Topics Alcohol use: No Drug use: No REVIEW OF SYSTEMS General: chronically stressed. no weight changes, fevers or chills. HEENT: No sinus congestion, sore throat. +earache, +dizziness Cardiac: No chest pain, palpitations Resp: No wheeze. +cough, + shortness of breath GI: No reflux symptoms, food intolerance, bowel changes. +rectal pain +bulging +constipation +fecal incontinence : No urinary frequency, dysuria. +stress incontinence MS: No pain or joint complaints. PHYSICAL EXAMINATION BP (!) 174/123 Pulse 81 Wt 59 kg (130 lb) LMP 04/02/2017 SpO2 96% BMI 20.82 kg/m Repeat BP: General: Alert, well developed, well nourished, no distress, pleasant and cooperative. HEENT: No adenopathy or thyromegaly R TM is red. Heart: Regular rate and rhythm. Normal S1 and S2. No murmurs, rubs, or gallops. Lungs: Clear to auscultation bilaterally. No respiratory distress. No wheezes, rales, or rhonchi. Abdomen: Soft, non-tender, no distention Extremities: Feet/ankles with subtle trace of edema, posterior tibial pulses full and symmetrical Health Maintenance: Covid-19 Vaccine(1) Never done Hib Vaccine(1 of 1 - Risk 1-dose series) Never done Meningococcal Conjugate Vaccine(1 - Risk 2-dose series) Never done Pneumococcal Vaccine(1 - PCV) Never done Meningococcal B Vaccine: Consider Based On Risk(1 of 4 - Increased Risk) Never done Hepatitis C Screening Never done HIV Screening Never done BP Controlled (<130/80) Never done DTaP,Tdap,Td Vaccine(1 - Tdap) Never done Pap Testing Never done HPV Testing Never done Mammogram Screening Never done Lung Cancer Screening Never done Shingrix Vaccine(1 of 2) Never done Colorectal Cancer Screening due on 05/14/2018 Diabetes Screening due on 12/17/2018 Lipid Screening due on 12/17/2020 Influenza Vaccine(1) Never done Annual PCP Team Chronic Disease Visit due on 03/25/2024 HPV Vaccine Aged Out Data Reviewed No recent blood work. In the process of obtaining medical records from [place]. 04/04/2023 ECG Complete Impression: NORMAL SINUS RHYTHM POSSIBLE LEFT ATRIAL ENLARGEMENT ANTEROLATERAL T WAVE ABNORMALITY ABNORMAL ECG WHEN COMPARED WITH ECG OF 13-JUN-2015 15:33, T WAVE INVERSION NOW EVIDENT IN ANTERIOR-LATERAL LEADS Assessment/Plan (I10) Hypertension, essential (primary encounter diagnosis) Comment: Poorly controlled. Bp elevated upon arrival to office at 174/123. Will increased lisinopril Plan: ECG COMPLETE; shows possible ischemic change (Cardiology consult pending) Blood Pressure Monitor Start increased lisinopril (ZESTRIL) 40 mg tablet (C20) Rectal cancer (HCC) (K62.89) Rectal mass Comment: History of rectal cancer, diagnosed in 2017. Had treatment while living in [place]; surgery, radiation and chemo. Cancer recurrent as of 9 months ago, has not received any treatment. Has a standing order for oncology and colo-rectal surgery consult. In need of refill for lidocaine ointment Plan: Schedule appointment with oncology and colo-rectal surgery lidocaine HCL (ASPERFLEX) 4 % ointment (R15.9) Fecal soiling due to fecal incontinence (N39.46) Mixed stress and urge urinary incontinence (R15.9) Incontinence of feces, unspecified fecal incontinence type Comment: In need of suppplies Plan: Underpads 30 X 30 pads, Diaper,Brief, Adult,Disposable (I50.9) Congestive heart failure, unspecified HF chronicity, unspecified heart failure type (HCC) Comment: Diagnosed last year. Has recently been experiencing symptoms. Not current managed on any medication. Due for routine labs. Will obtain ECG for record and Echo. Plan: CONSULT TO CARDIOLOGY, CBC, COMP METABOLIC PANEL, TSH BLD, ECHO, ECG COMPLETE, CBC, COMP METABOLIC PANEL, TSH BLD, Blood Pressure Monitor Start furosemide (LASIX) 20 mg tablet (G56.01) Carpal tunnel syndrome, right Comment: Ongoing. In need of new splint Plan: COCK-UP WRIST SPLINT (R94.31) Abnormal EKG Comment: ECG today in office showed possible left atrial enlargement and anterolateral T wave abnormality. Plan: CONSULT TO CARDIOLOGY Requested Prescriptions Signed Prescriptions Disp Refills lisinopril (ZESTRIL) 40 mg tablet 30 tablet 2 Sig: Take 1 tablet by mouth once daily. furosemide (LASIX) 20 mg tablet 30 tablet 2 Sig: Take 1 tablet by mouth once daily. cefdinir (OMNICEF) 300 mg capsule 20 capsule 0 Sig: Take 1 capsule by mouth two times a day for 10 days. lidocaine HCL (ASPERFLEX) 4 % ointment 100 g 2 Sig: Apply to affected area three times a day. Blood Pressure Monitor 1 Each 2 Sig: Check blood pressure weekly and as needed. Underpads 30 X 30 pads 300 Each 5 Si Each three times a day. Diaper,Brief, Adult,Disposable 120 Each 5 Si Each five times a day. Requested Prescriptions Signed Prescriptions Disp Refills lisinopril (ZESTRIL) 40 mg tablet 30 tablet 2 Sig: Take 1 tablet by mouth once daily. furosemide (LASIX) 20 mg tablet 30 tablet 2 Sig: Take 1 tablet by mouth once daily. cefdinir (OMNICEF) 300 mg capsule 20 capsule 0 Sig: Take 1 capsule by mouth two times a day for 10 days. lidocaine HCL (ASPERFLEX) 4 % ointment 100 g 2 Sig: Apply to affected area three times a day. Blood Pressure Monitor 1 Each 2 Sig: Check blood pressure weekly and as needed. Underpads 30 X 30 pads 300 Each 5 Si Each three times a day. Diaper,Brief, Adult,Disposable 120 Each 5 Si Each five times a day. RTO: 3 months Scribe Attestation: By signing my name below, Rocío Cortes, attest that this documentation has been prepared under the direction and in the presence of Phan Cartagena M.D. Electronically Signed: Beverly Fritz. April 04, 2023 3:18 PM Provider Attestation: Dorene Cortes MD, personally performed the services described in this documentation. All medical record entries made by the scribe were at my direction and in my presence. I have reviewed the chart and discharge instructions (if applicable), and agree that the record reflects my personal performance and is accurate and complete. Electronically Signed: Dorene Cartagena MD April 04, 2023 4:46 PM documented in this encounter [facility] 03-28-2023 Miscellaneous Notes Spoke with patients daughter in law dunham, she is going to speak with the patient and get the records over to the office before her next appointment as neither of the phone numbers for the patient work. Noted. Naga Jensen APRN.CNP I spoke with Yeimy's daughter in law Dunham, and we rescheduled her for a forty [address] Cartagena. Catrachita will reach out to Yeimy about getting her release form for the medical records needed for Oncology scheduling returned to us as soon as possible. Yeimy's phone is out of minutes until March, per Catrachita, but she will be able to text her about returning the records form. I will set a reminder for us to contact Yeimy on March. Thank you, Lashell Mathur Please contact patient and have her bring signed release forms into the office CARLOS as we can't schedule her with oncology until they have her records from [place]. Also, please cancel and reschedule the upcoming appointment with Dr. Cartagena, needs to be in a new patient 40 minute slot. Naga Jensen APRN.CNP She just moved back here from [place] and was to leave her signed releases at the front office supervisor on her way out for us to retrieve her records, but apparently did not do so. Naga Jensen APRN.VIDA Patient had previously seen Dr. Dubon in 2017. Has patient seen anyone since? Has she had another biopsy? Imaging? Any records in the last 6 years? Lindsey Vale LPN Patient needs to be scheduled with Oncology: DX: Rectal CA Insurance: [facility] Referred by: Naga Jensen CNP Please review and advise documented in this encounter [facility] 03-25-2023 Note HNO ID: [id number] Author: Naga Jensen APRN.VIDA Service: ? Author Type: Nurse Practitioner Type: Progress Notes Filed: 03/25/2023 3:28 PM Note Text: This note was created using [employer]ter. Subjective Yeimy Damon is a 57 year old female. Patient recently moved back here from [place]. Initially diagnosed with rectal cancer in 2017, had surgery, radiation and chemo in [place]. Cancer returned about 9 months ago, but has had no treatment in the last year. Patient leaks stool and sometimes blood constantly, wears disposable briefs, needs Rx for these and chux pads. Has daily rectal pain and bulging in rectal area, uses lidocaine 5% gel for relief, needs refill. Patient has ongoing right hand pain and stiffness, tingling sometimes in palm and fingers. She is right handed. She has tried topical creams. Thinks she has carpal tunnel and neuropathy. Has some ongoing neuropathy in her feet. HTN: currently off medication, last on lisinopril but unsure of dose. States she can't take diuretics. The history is provided by the patient. Review of Systems Constitutional: Negative for fever. Gastrointestinal: Positive for abdominal distention, abdominal pain, anal bleeding, blood in stool, constipation and rectal pain. Negative for diarrhea, nausea and vomiting. Musculoskeletal: Positive for arthralgias and myalgias. Neurological: Positive for weakness and numbness. PAST MEDICAL HISTORY Diagnosis Date Anxiety Dr. Terrell [facility] Psychiatrist ASCUS (atypical squamous cells of undetermined significance) on Pap smear Bipolar 1 disorder ([facility] Dr. [facility] Psychiatrist Depression Dr. 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 albuterol (PROVENTIL) 2.5 mg /3 mL (0.083 %) nebulizer solution use 1 (ONE) vial in a NEBULIZER EVERY 4 HOURS NEEDED NEEDED FOR WHEEZING albuterol HFA (VENTOLIN HFA) 90 mcg/actuation inhaler Inhale 2 Puffs as instructed every 4 hours as needed for Wheezing/Shortness of Breath. lisinopril (ZESTRIL) 20 mg tablet Take 1 tablet by mouth once daily. Miscellaneous Medical Supply (BLOOD PRESSURE CUFF) 1 Each once daily. Arm Brace (WRIST BRACE) misc 1 Each once daily. ibuprofen (MOTRIN) 800 mg tablet Take 1 tablet by mouth every 8 hours as needed for pain. Take with food. lidocaine 5 % gel Apply to affected area three times a day as needed. Diaper,Brief, Adult,Disposable 1 Each five times a day. Underpads 30 X 30 pads 1 Each once daily. FAMILY HISTORY Problem Relation Age of Onset Psychiatry Mother Cancer Mother lung Diabetes Father Heart Brother age 60 Stroke Brother Breast Cancer Sister Psychiatry Brother Psychiatry Sister Breast Cancer Maternal Aunt Cancer Maternal Aunt Colon Cancer Maternal Uncle Social History Tobacco Use Smoking status: Every Day Packs/day: 1.50 Years: 40.00 Additional pack years: 0.00 Total pack years: 60.00 Types: Cigarettes Smokeless tobacco: Never Tobacco comments: Pt has cut back to 1/3 pack daily. Substance Use Topics Alcohol use: No Drug use: No Objective BP (!) 177/123 Pulse 91 Wt 60.3 kg (133 lb) LMP 04/02/2017 BMI 21.31 kg/m? Physical Exam Vitals and nursing note reviewed. Constitutional: Appearance: She is well-developed. She is not ill-appearing. Cardiovascular: Rate and Rhythm: Normal rate and regular rhythm. Heart sounds: Normal heart sounds. Pulmonary: Effort: Pulmonary effort is normal. Breath sounds: Normal breath sounds. Abdominal: General: Abdomen is flat. Bowel sounds are normal. Palpations: Abdomen is soft. Skin: General: Skin is warm and dry. Neurological: Mental Status: She is alert and oriented to person, place, and time. Comments: Positive Tinel's and Phalen's on right wrist Assessment and Plan 1. Rectal cancer (HCC) Patient has recurrence of cancer and untreated, recommend to schedule with oncology and colorectal surgery. - CONSULT TO ONCOLOGY; Future - CONSULT TO COLO-RECTAL SURGERY; Future 2. Primary hypertension Off medications, re-start lisinopril and start monitoring at home. Bring home readings to follow-up visit. - lisinopril (ZESTRIL) 20 mg tablet; Take 1 tablet by mouth once daily. Dispense: 30 tablet; Refill: 2 - Miscellaneous Medical Supply (BLOOD PRESSURE CUFF); 1 Each once daily. Dispe (more content not included)... [facility] documented as of this encounter (statuses as of 03/28/2023) [facility] History of Past illness Narrative* Problem Noted Date Diagnosed Date Resolved Date Family history of ischemic heart disease 06/22/2015 06/18/2017 Blood in stool 12/09/2012 06/18/2017 documented as of this encounter (statuses as of 04/05/2023) [facility] History of Past illness Narrative* Problem Noted Date Diagnosed Date Resolved Date Family history of ischemic heart disease 06/22/2015 06/18/2017 Blood in stool 12/09/2012 06/18/2017 documented as of this encounter (statuses as of 04/09/2023) [facility] History of Past illness Narrative* Problem Noted Date Diagnosed Date Resolved Date Family history of ischemic heart disease 06/22/2015 06/18/2017 Blood in stool 12/09/2012 06/18/2017 documented as of this encounter (statuses as of 04/14/2023) [address] History of Past illness Narrative* Problem Noted Date Diagnosed Date Resolved Date Family history of ischemic heart disease 06/22/2015 06/18/2017 Blood in stool 12/09/2012 06/18/2017 documented as of this encounter (statuses as of 05/30/2023) [address] History of Past illness Narrative* Problem Noted Date Diagnosed Date Resolved Date Family history of ischemic heart disease 06/22/2015 06/18/2017 Blood in stool 12/09/2012 06/18/2017 documented as of this encounter (statuses as of 06/05/2023) [address] History of Past illness Narrative* Problem Noted Date Diagnosed Date Resolved Date Family history of ischemic heart disease 06/22/2015 06/18/2017 Blood in stool 12/09/2012 06/18/2017 documented as of this encounter (statuses as of 06/10/2023) [address] History of Past illness Narrative* Problem Noted Date Diagnosed Date Resolved Date Family history of ischemic heart disease 06/22/2015 06/18/2017 Blood in stool 12/09/2012 06/18/2017 documented as of this encounter (statuses as of 06/11/2023) [address] History of Past illness Narrative* Problem Noted Date Diagnosed Date Resolved Date Family history of ischemic heart disease 06/22/2015 06/18/2017 Blood in stool 12/09/2012 06/18/2017 documented as of this encounter (statuses as of 06/12/2023) [address] History of Past illness Narrative* Problem Noted Date Diagnosed Date Resolved Date Family history of ischemic heart disease 06/22/2015 06/18/2017 Blood in stool 12/09/2012 06/18/2017 documented as of this encounter (statuses as of 06/13/2023) [address] History of Past illness Narrative* Problem Noted Date Diagnosed Date Resolved Date Family history of ischemic heart disease 06/22/2015 06/18/2017 Blood in stool 12/09/2012 06/18/2017 documented as of this encounter (statuses as of 06/13/2023) [facility] History of Past illness Narrative* Problem Noted Date Diagnosed Date Resolved Date Family history of ischemic heart disease 06/22/2015 06/18/2017 Blood in stool 12/09/2012 06/18/2017 documented as of this encounter (statuses as of 06/13/2023) [facility] History of Past illness Narrative* Problem Noted Date Diagnosed Date Resolved Date Family history of ischemic heart disease 06/22/2015 06/18/2017 Blood in stool 12/09/2012 06/18/2017 documented as of this encounter (statuses as of 06/13/2023) [facility] History of Past illness Narrative* Problem Noted Date Diagnosed Date Resolved Date Family history of ischemic heart disease 06/22/2015 06/18/2017 Blood in stool 12/09/2012 06/18/2017 documented as of this encounter (statuses as of 06/16/2023) [facility] note* Diagnosis Hypertension, essential- Primary Unspecified essential hypertension Rectal cancer (HCC) Malignant neoplasm of rectum Congestive heart failure, unspecified HF chronicity, unspecified heart failure type (HCC) Carpal tunnel syndrome, right Carpal tunnel syndrome Rectal mass Other symptoms involving digestive system Fecal soiling due to fecal incontinence Mixed stress and urge urinary incontinence Mixed incontinence urge and stress (male)(female) Incontinence of feces, unspecified fecal incontinence type Abnormal EKG Nonspecific abnormal electrocardiogram (ECG) (EKG) [facility] Diagnosis Encounter for screening mammogram for breast cancer documented in this encounter [facility] note* Diagnosis Trigger finger, acquired- Primary Trigger finger (acquired) Carpal tunnel syndrome, right Carpal tunnel syndrome documented in this encounter [facility] note* Diagnosis Chronic diastolic CHF (congestive heart failure) (HCC)- Primary Chronic diastolic heart failure Primary hypertension Unspecified essential hypertension documented in this encounter [facility] note* Diagnosis Rectal cancer (HCC) Malignant neoplasm of rectum Malignant neoplasm of rectum (HCC) Malignant neoplasm of rectum [facility] Diagnosis Carpal tunnel syndrome, right Carpal tunnel syndrome Rectal pain Anal or rectal pain [facility] Diagnosis Rectal cancer (HCC)- Primary Malignant neoplasm of rectum [facility] Diagnostic Procedure Only (Routine) - Pending Review Specialty Diagnoses / Procedures Referred By Vinod t Referred To Contact [facility] Diagnoses Encounter for screening mammogram for breast cancer Procedures CORDELIA SCREENING SCREENING MAMMOGRAPHY BI 2-VIEW BREAST INC CAD Dorene Cartagena MD [address] [address] [facility] [address] [place] [address] Referral ID Status Reason Start Date Expiration Date Visits Requested Visits Authorized [id number] Pending Review Auto-Generat ed Referral 05/08/2024 1 1 [facility] Summary Purpose Family History No Family History Records FoundNo Family History Records FoundNo Family History Records Found Advance Directives No Advanced Directives Records FoundNo Advanced Directives Records FoundNo Advanced Directives Records Found Reason for Referral Specialty Diagnoses / Procedures Referred By Contkeila t Referred To Contact Cardiology Diagnoses Hypertension, essential Congestive heart failure, unspecified HF chronicity, unspecified heart failure type (HCC) Abnormal EKG Procedures CONSULT TO CARDIOLOGY OFFICE/OUTPATIENT [facility] MDM 60-74 MINUTES Dorene Cartagena MD [address] [place] [address] Referral ID Status Reason Start Date Expiration Date Visits Requested Visits Authorized [id number] Pending Review PCP Requested Referral 04/04/2023 04/03/2024 1 1 Specialty Diagnoses / Procedures Referred By Contac t Referred To Contact [facility] Diagnoses Hypertension, essential Congestive heart failure, unspecified HF chronicity, unspecified heart failure type (HCC) Procedures ECG COMPLETE ECG ROUTINE ECG W/LEAST 12 LDS W/I&R Dorene Cartagena MD [address] [place] [address] [facility] [place] [address] [place] [address] Referral ID Status Reason Start Date Expiration Date Visits Requested Visits Authorized [id number] Pending Review Auto-Generat ed Referral 04/04/2023 04/03/2024 1 1 Specialty Diagnoses / Procedures Referred By Contac t Referred To Contact [facility] Diagnoses Hypertension, essential Congestive heart failure, unspecified HF chronicity, unspecified heart failure type (HCC) Procedures ECHO ECHO TTHRC R-T 2D W/WOM-MODE COMPL SPEC&COLR D Dorene Cartagena MD [address] [place] [address] [facility] [place] [address] Referral ID Status Reason Start Date Expiration Date Visits Requested Visits Authorized [id number] Pending Review Auto-Generat ed Referral 04/04/2023 04/03/2024 1 1 Specialty Diagnoses / Procedures Referred By Contac t Referred To Contact Cardiology Diagnoses Congestive heart failure, unspecified HF chronicity, unspecified heart failure type (HCC) Procedures CONSULT TO CARDIOLOGY OFFICE/OUTPATIENT [facility] 60-74 MINUTES Dorene Cartagena MD [address] [place] [address] Referral ID Status Reason Start Date Expiration Date Visits Requested Visits Authorized [id number] Pending Review PCP Requested Referral 04/04/2023 04/03/2024 1 1 Specialty Diagnoses / Procedures Referred By Contac t Referred To Contact Diagnoses Rectal cancer (HCC) Procedures REFER TO PACC - PRE ANESTHESIA CONSULTATION CLINIC OFFICE/OUTPATIENT [facility] 60 MINUTES Leann Reyes MD [address] [address] Referral ID Status Reason Start Date Expiration Date Visits Requested Visits Authorized [id number] Authorized PCP Requested Referral 06/13/2023 06/12/2024 1 1 Specialty Diagnoses / Procedures Referred By Contac t Referred To Contact [facility] [place] Diagnoses Rectal cancer (HCC) Procedures ECG COMPLETE ECG ROUTINE ECG W/LEAST 12 LDS W/I&R Leann Reyes MD [address] [address] [facility] [address] [address] Referral ID Status Reason Start Date Expiration Date Visits Requested Visits Authorized [id number] Pending Review Auto-Generat ed Referral 06/13/2023 06/12/2024 1 1 Specialty Diagnoses / Procedures Referred By Contac t Referred To Contact Diagnoses Rectal cancer (HCC) Procedures CONSULT TO [facility] OFFICE/OUTPATIENT [facility] HIGH MDM 60 MINUTES Leann Reyes MD [address] [place] [address] Referral ID Status Reason Start Date Expiration Date Visits Requested Visits Authorized [id number] Authorized PCP Requested Referral 06/13/2023 06/12/2024 1 1 Additional Source Comments INFORMATION SOURCE (unrecogn ized section and content) DATE CREATED AUTHOR AUTHOR'S ORGANIZ ATION 06/11/2023 [facility] DATE CREATED AUTHOR AUTHOR'S ORGANIZ ATION 06/16/2023 [facility] Source Comments (unrecognize d section and content) In the event this informatio n is protected by the Federal Confidentiality of Alcohol and Drug Abuse Patient Records regulations: The Federal rules restrict any use of the information to criminally investigate or prosecute any alcohol or drug abuse patient.[facility] the event this information is protected by the Federal Confidentiality of Alcohol and Drug Abuse Patient Records regulations: The Federal rules restrict any use of the information to criminally investigate or prosecute any alcohol or drug abuse patient.[facility] the event this information is protected by the Federal Confidentiality of Alcohol and Drug Abuse Patient Records regulations: The Federal rules restrict any use of the information to criminally investigate or prosecute any alcohol or drug abuse patient.[facility] the event this information is protected by the Federal Confidentiality of Alcohol and Drug Abuse Patient Records regulations: The Federal rules restrict any use of the information to criminally investigate or prosecute any alcohol or drug abuse patient.[facility] the event this information is protected by the Federal Confidentiality of Alcohol and Drug Abuse Patient Records regulations: The Federal rules restrict any use of the information to criminally investigate or prosecute any alcohol or drug abuse patient.[facility] the event this information is protected by the Federal Confidentiality of Alcohol and Drug Abuse Patient Records regulations: The Federal rules restrict any use of the information to criminally investigate or prosecute any alcohol or drug abuse patient.[facility] the event this information is protected by the Federal Confidentiality of Alcohol and Drug Abuse Patient Records regulations: The Federal rules restrict any use of the information to criminally investigate or prosecute any alcohol or drug abuse patient.[facility] the event this information is protected by the Federal Confidentiality of Alcohol and Drug Abuse Patient Records regulations: The Federal rules restrict any use of the information to criminally investigate or prosecute any alcohol or drug abuse patient.[facility] Hospital[facility] the event this information is protected by the Federal Confidentiality of Alcohol and Drug Abuse Patient Records regulations: The Federal rules restrict any use of the information to criminally investigate or prosecute any alcohol or drug abuse patient.[facility] Hospital[facility] the event this information is protected by the Federal Confidentiality of Alcohol and Drug Abuse Patient Records regulations: The Federal rules restrict any use of the information to criminally investigate or prosecute any alcohol or drug abuse patient.[facility] Hospital[facility] the event this information is protected by the Federal Confidentiality of Alcohol and Drug Abuse Patient Records regulations: The Federal rules restrict any use of the information to criminally investigate or prosecute any alcohol or drug abuse patient.[facility] HospitalIn the event this information is protected by the Federal Confidentiality of Alcohol and Drug Abuse Patient Records regulations: The Federal rules restrict any use of the information to criminally investigate or prosecute any alcohol or drug abuse patient.[facility] HospitalIn the event this information is protected by the Federal Confidentiality of Alcohol and Drug Abuse Patient Records regulations: The Federal rules restrict any use of the information to criminally investigate or prosecute any alcohol or drug abuse patient.[facility] Hospital[facility] the event this information is protected by the Federal Confidentiality of Alcohol and Drug Abuse Patient Records regulations: The Federal rules restrict any use of the information to criminally investigate or prosecute any alcohol or drug abuse patient.[facility] HospitalIn the event this information is protected by the Federal Confidentiality of Alcohol and Drug Abuse Patient Records regulations: The Federal rules restrict any use of the information to criminally investigate or prosecute any alcohol or drug abuse patient.[facility] Reason for Visit (unrecogniz ed section and content) Reason Comments Establish Care Reason Comments Received Outside Medical Records [facility] CT Abdomen and Pelvis with contrast. 04/08/2023 Reason Comments New Right CTSReferred by Naga Jensen New Left middle trigger finger Specialty Diagnoses / Procedures Referred By Contac t Referred To Contact Orthopedics Diagnoses Carpal tunnel syndrome, right Procedures CONSULT TO ORTHOPAEDICS OFFICE/OUTPATIENT NEW HIGH MDM 60-74 MINUTES Naga Jensen APRN.[employer] [address] [place] [address] [facility] [id number] Referral ID Status Reason Start Date Expiration Date V isits Requested Visits Authorized [id number] Closed PCP Requested Referral 03/25/2023 03/24/2024 1 1 Reason Comments Consult Presents today for a consult appointment. Specialty Diagnoses / Procedures Referred By Contac t Referred To Contact [facility] Diagnoses Hypertension, essential Congestive heart failure, unspecified HF chronicity, unspecified heart failure type (HCC) Procedures ECG COMPLETE ECG ROUTINE ECG W/LEAST 12 LDS W/I&R Dorene Cartagena MD [address] [address] [facility] [place] [address] [place] [id number] Referral ID Status Reason Start Date Expiration Date V isits Requested Visits Authorized [id number] Denied Auto-Generate d Referral 04/04/2023 04/03/2024 1 0 Reason Comments New Rectal Cancer Specialty Diagnoses / Procedures Referred By Contac t Referred To Contact General Surgery Diagnoses Rectal cancer (HCC) Malignant neoplasm of rectum (HCC) Procedures CONSULT TO GENERAL SURGERY OFFICE/OUTPATIENT [facility] 60 MINUTES John Dubon DO [address] [place] [address] [facility] [id number] Referral ID Status Reason Start Date Expiration Date V isits Requested Visits Authorized [id number] Closed PCP Requested Referral 05/15/2023 05/14/2024 1 1 Reason Onset Date Comments Refill Request 06/12/2023 Reason Onset Date Comments Refill Request 06/13/2023 Reason Comments FYI-No Action Needed Care Teams (unrecognized sec tion and content) 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 Specialty Start Date End Date Dorene Cartagena MD [address] [place] [address] PCP - General Family Medicine 04/04/23 Viktoria Cao MD, MD [address] [place] [address] Physician Radiation Oncology 04/07/17 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 Specialty Start Date End Date Dorene Cartagena MD [address] [place] [address] PCP - General Family Medicine 04/04/23 Viktoria Cao MD, [address] [place] [address] Physician Radiation Oncology 04/07/17 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 Specialty Start Date End Date Dorene Cartagena MD [address] [place] [address] PCP - General Family Medicine 04/04/23 Viktoria Cao MD, MD [address] [place] [address] Physician Radiation Oncology 04/07/17 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 Specialty Start Date End Date Dorene Cartagena MD [address] [place], [place] [address] PCP - General Family Medicine 04/04/23 Viktoria Cao MD, [address] [place] [address] Physician Radiation Oncology 04/07/17 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 Specialty Start Date End Date Dorene Cartagena MD [address] [place] [address] PCP - General Family Medicine 04/04/23 Viktoria Cao MD [address] [place] [address] Physician Radiation Oncology 04/07/17 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 Specialty Start Date End Date Dorene Cartagena MD [address] [place], [place] [address] PCP - General Family Medicine 04/04/23 Viktoria Cao MD [address] [place] [address] Physician Radiation Oncology 04/07/17 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 Specialty Start Date End Date Dorene Cartagena MD [address] [place] [address] PCP - General Family Medicine 04/04/23 Viktoria Cao MD [address] [place] [address] Physician Radiation Oncology 04/07/17 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 Specialty Start Date End Date Dorene Cartagena MD [address] [place] [address] PCP - General Family Medicine 04/04/23 Viktoria Cao MD [address] [place] [address] Physician Radiation Oncology 04/07/17 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 Specialty Start Date End Date Dorene Cartagena MD [address] [place] [address] PCP - General Family Medicine 04/04/23 Viktoria Cao MD [address] [place] [address] Physician Radiation Oncology 04/07/17 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 Specialty Start Date End Date Dorene Cartagena MD [address] [place] [address] PCP - General Family Medicine 04/04/23 Viktoria Cao MD [address] [place], [place] [address] Physician Radiation Oncology 04/07/17 Inactive Administered Medications - up to 3 most recent administrations Administered Medications (un recognized section and content) FOR RECORDS PERTAINING TO PATIENTS WHO ARE OR HAVE BEEN ENROLLED IN A CHEMICAL DEPENDENCY/SUBSTANCEABUSE PROGRAM, SOME INFORMATION MAY BE OMITTED. This clinical summary was aggregated from multiple sources. Caution should be exercised in using it in the provision of clinical care. This summary normalizes information from multiple sources, and as a consequence, information in this document may materially change the coding, format and clinical context of patient data. In addition, data may be omitted in some cases. CLINICAL DECISIONS SHOULD BE BASED ON THE PRIMARY CLINICAL RECORDS. [facility] [employer] provides no warranty or guarantee of the accuracy or completeness of information in this document.
== END 2023-06-18 19:44 | disposition home or self-care (01) ==
PROVIDERS: Emergency Provider Emergency Medicine; PCP Family Medicine; Visit Provider Emergency Medicine
DX: R07.9 Chest pain, unspecified (principal); C20 Malignant neoplasm of rectum; R55 Syncope and collapse; S09.90XA Unspecified injury of head, initial encounter; W19.XXXA Unspecified fall, initial encounter; Y93.01 Activity, walking, marching and hiking; F17.210 Nicotine dependence, cigarettes, uncomplicated
CPT/HCPCS: 70450; 71045; 80048; 83605; 84484; 85025; 90471; 93005; 96361; 96374; 96375; 99283; J7030; A4216; J2405

== ENCOUNTER 2023-08-22 20:24 | Emergency (ER) | payer MEDICAID, SELFPAY ==
[2023-08-22 20:25] VITALS: BP 162/113; PULSE 82; RESP 14; TEMP 37.3; O2SAT 99; BMI 19.4
--- NOTE | 2023-08-22 21:14 | EX.ED.DYSGE1 ---
HPI History of Present Illness Chief Complaint: Abd Pain Informant: patient Onset/Context/Timing Onset: Today Narrative Narrative: Patient presents secondary to prolapse at her ostomy site. She had a colostomy placed earlier this year at [facility] secondary to history of rectal cancer. About 2 and half hours ago she noted her bowel protruding into her stoma bag. She had some mild abdominal cramping. [facility] Medical History (Updated 08/22/23 @ 21:[address] Kelsy Izquierdo MD) Benign essential hypertension Bipolar disorder CHF (congestive heart failure) Colostomy in place Rectal cancer Home Medications lisinopril 10 mg tablet 10 mg PO DAILY #30 tabs 04/04/17 [Rx Last Taken Unknown] naproxen 500 mg tablet 500 mg PO BID PRN #20 tabs 04/16/17 [Rx Last Taken Unknown] benzonatate 100 mg capsule (Tessalon Perles) 100 mg PO TID PRN PRN Cough 3 days ##14 04/28/17 [Rx Last Taken Unknown] dextromethorphan-guaifenesin ER 60 mg-1,200 mg tab,extend release,12hr (Mucinex DM) 1 ea PO BID PRN Congestion ##14 04/28/17 [Rx Last Taken Unknown] docusate sodium 100 mg capsule (DOK) 100 mg PO DAILY #30 CAPSULES 04/08/23 [Rx Last Taken Unknown] ondansetron 4 mg disintegrating tablet 4 mg PO Q8H PRN PRN Nausea #10 tabs 04/08/23 [Rx Last Taken Unknown] Allergy/AdvReac Type Severity Reaction Status Date / Time bee venom protein (honey bee) Allergy Anaphylaxis Verified 04/08/23 13:43 Penicillins Allergy Unknown Verified 04/08/23 13:43 Social History housing: house Smoking Status: Current every day smoker tobacco type: cigarettes ROS ROS ED Constitutional Constitutional ED: Denies chills or fever(s) Eyes Eyes: Denies discharge from eye(s) ENT ENT ED: Denies discharge from eye(s), rhinorrhea or sore throat Cardiovascular Cardiovascular: Denies chest pain or palpitations Respiratory/Chest Respiratory/Chest: Denies cough or dyspnea Gastrointestinal Gastrointestinal: Reports abdominal pain; Denies diarrhea, nausea or vomiting Genitourinary Genitourinary ED: Denies dysuria Musculoskeletal Musculoskeletal: Denies back pain or extremity pain Integumentary Denies Abrasions or rash Neurologic Neurologic: Denies headache(s) or weakness Allergic/Immunologic Allergic/Immunologic ED: Denies lip swelling or urticaria EXAM Physical Exam Const Vital Signs: 08/22/23 20:25 Temperature 99.2 F H Temperature Source Oral Pulse Rate 82 Respiratory Rate 14 Blood Pressure 162/113 H Blood Pressure Mean 129 Pulse Ox 99 Oxygen Delivery Method Room Air Positive well nourished and well developed General Appearance ED: well developed HEENT Reports moist mucous membranes Eyes EOMs intact bilaterally Chest Wall inspection of chest normal and palpation of chest normal Resp normal respiratory effort and clear to auscultation bilaterally Cardio regular rate and regular rhythm GI GI Narrative: Abdomen soft with no focal tenderness. Ostomy is in place in the left lower quadrant. She does have prolapse of the bowel into the ostomy bag. Extremity normal to inspection Neuro oriented x3 and no sensory deficits noted Psych mental status grossly normal MDM MDM MDM Narrative Medical decision making narrative: Prolapsed bowel was easily reduced with gentle pressure. 4 x 4's placed over the area and abdominal binder placed. Patient observed. Patient is had no further recurrent prolapse. She will wear the abdominal binder when she is up and around but can remove it when she is sitting or lying at rest. She will call her surgeon on Friday. Discharge Plan Triage Chief Complaint: Abd Pain ED Provider: Kelsy Izquierdo Dx/Rx/DC Orders Clinical Impression: Prolapse of enterostomy Prescriptions: No Action lisinopril 10 MG tablet 10 mg PO DAILY Qty: 30 0RF naproxen 500 MG tablet 500 mg PO BID PRN Qty: 20 0RF benzonatate [Tessalon Perles] 100 MG capsule 100 mg PO TID PRN PRN (Reason: Cough) 3 Days Qty: 14 0RF dextromethorphan-guaifenesin [Mucinex DM] 1 EACH tablet extended release 12 hr 1 ea PO BID PRN (Reason: Congestion) Qty: 14 0RF docusate sodium [DOK] 100 mg capsule 100 mg PO DAILY Qty: 30 0RF ondansetron [ondansetron] 4 mg tablet,disintegrating 4 mg PO Q8H PRN PRN (Reason: Nausea) Qty: 10 0RF Primary Care Provider: Phan Dee Referrals: Phan Dee MD [Primary Care Provider] - Activity Restrictions/Additional Instructions: Please call your surgeon on Friday for follow-up as discussed. Disposition Disposition: Home, Self Care
[2023-08-22 21:55] VITALS: BP 186/115; PULSE 74; RESP 16; TEMP 36.6; O2SAT 95
== END 2023-08-22 22:02 | disposition home or self-care (01) ==
PROVIDERS: Emergency Provider Emergency Medicine; PCP Family Medicine; Visit Provider Emergency Medicine
DX: F17.210 Nicotine dependence, cigarettes, uncomplicated (principal); K94.19 Other complications of enterostomy; I50.9 Heart failure, unspecified; F31.9 Bipolar disorder, unspecified
CPT/HCPCS: 99282

== ENCOUNTER 2023-09-13 17:19 | Emergency (ER) | payer MEDICAID, SELFPAY ==
[2023-09-13] VITALS (9 sets, daily range): BP systolic 131–164; BP diastolic 74–109; PULSE 74–92; RESP 10–24; TEMP 36.6–37.2; O2SAT 94–98; BMI 18.7
--- NOTE | 2023-09-13 17:44 | EDS_ITS ---
HPI HPI - GI History of Present Illness Chief Complaint: Abd Pain Narrative Narrative: 58-year-old female presenting with multiple complaints. She states she stopped staying at one of her friend's houses recently because she had to care for him and he was morbidly obese and had to be a Kacey lift and she no longer wanted to take care of him. She states that she is staying in another friend's house who told her to get out today because she was smoking crack cocaine and her dog was being on the floor and she was fed up. At this point the patient called EMS because she was having chest pain and abdominal pain. Patient does have a significant history of anxiety, bipolar disorder, hypertension, CHF, stage III colon cancer. She denies history of VT or PE. She states he sees Dr. Dubon for chemotherapy but has missed several visits because she is couch surfing. She does not have money to get around and pay for expenses. She is very difficult to redirect and appears to be still high from smoking crack cocaine. She denies any other drug use or alcohol use. Patient states that she has a chronically prolapsed stoma. She cares for her stoma herself. She is using medical tape to attach the colostomy bag. Her colorectal surgeon is Dr. Reyes. [facility] Medical History Cocaine abuse Colostomy in place CHF (congestive heart failure) Rectal cancer Bipolar disorder Benign essential hypertension Allergy/AdvReac Type Severity Reaction Status Date / Time bee venom protein (honey bee) Allergy Anaphylaxis Verified 04/08/23 13:43 Penicillins Allergy Unknown Verified 04/08/23 13:43 Social History housing: house Smoking Status: Current every day smoker tobacco type: cigarettes EXAM Physical Exam Const Vital Signs: 09/13/23 17:20 09/13/23 17:25 09/13/23 18:00 Temperature 98.6 F 98.6 F Temperature Source Oral Oral Pulse Rate 92 90 Respiratory Rate 18 17 Respiratory Effort Normal Respiratory Pattern Tachypnea Blood Pressure 163/109 H 163/109 H Blood Pressure Mean 127 127 Pulse Ox 98 95 Oxygen Delivery Method Room Air Room Air 09/13/23 18:25 09/13/23 19:00 09/13/23 19:19 Temperature 98 F 99.0 F Temperature Source Oral Oral Pulse Rate 88 89 85 Respiratory Rate 24 H 22 H 20 H Respiratory Effort Respiratory Pattern Blood Pressure 164/102 H 156/74 H 153/99 H Blood Pressure Mean 122 101 117 Pulse Ox 98 97 95 Oxygen Delivery Method Room Air Room Air Room Air 09/13/23 20:00 09/13/23 21:00 09/13/23 22:00 Temperature 98.2 F 98.3 F 98.2 F Temperature Source Oral Oral Oral Pulse Rate 78 75 74 Respiratory Rate 21 H 16 16 Respiratory Effort Respiratory Pattern Blood Pressure 131/97 H 146/94 H 136/92 H Blood Pressure Mean 108 111 106 Pulse Ox 96 97 97 Oxygen Delivery Method Room Air Room Air Room Air 09/13/23 23:00 Temperature 98 F Temperature Source Oral Pulse Rate 74 Respiratory Rate 10 L Respiratory Effort Respiratory Pattern Blood Pressure 134/100 H Blood Pressure Mean 111 Pulse Ox 94 Oxygen Delivery Method Room Air MDM MDM MDM Narrative Medical decision making narrative: Patient is presenting with chest pain and abdominal pain. Lungs are clear to auscultation bilaterally. Heart regular rate and rhythm patient very difficult to redirect and get specific details because she admittedly got high on crack cocaine before coming in and she has a history of anxiety and bipolar disorder. She has a chronically prolapsed stoma and I was able to look in clinisync to confirm this. She was given instructions on 08/27/2023 by the HOLLOW WARE MAKER for her surgeon on tips on how to reduce the prolapse to prevent trauma, prep proper pouching and ADLs to prevent hernia from enlarging and she has a binder which she does not wear. It does appear that her ostomy prolapse is about 3 to 4 inches based on previous exam by her HOLLOW WARE MAKER since he is having chest pain differential includes ACS, pneumonia, PE, costochondritis, metastases. Her abdominal exam is benign but with her history of colon cancer also includes worsening metastatic disease and she is on chemotherapy, bowel obstruction, colitis, diverticulitis.Patient medicated with morphine, Zofran. Will obtain a CBC to assess white blood cell count, hemoglobin, platelets. CMP to assess liver function, renal function, electrolytes. Lipase to assess for pancreatitis. High-sensitivity troponin and EKG to assess for ischemia/dysrhythmia. Will obtain a CTA of the chest to rule out PE and a CT of the abdomen pelvis with IV contrast to rule out any other acute pathology. Urine drug screen will be obtained as well as EtOH. BMP to assess for CHF. CBC shows white blood cell count of 14.7. Hemoglobin 14.2. Platelets are 659 and elevated. Creatinine slightly elevated today at 1.41. Patient was given IV fluids. EKG on my interpretation shows LVH with subtle depressions in the lateral leads which is not significantly changed from previous EKG 18 June 2023. High-sensitivity troponin came back at 369. BNP was 754. Urinalysis consistent with a UTI so I gave her a gram Rocephin. Urine drug screen positive for cocaine. EtOH negative. I had obtained a CTA of the chest which shows no acute findings such as PE or dissection or infiltrate. CT of the abdomen pelvis with IV contrast was obtained and shows the patient's herniated stoma which is not new. Radiologist thought that maybe there was signs of hemorrhage however there is been no blood in her colostomy bag and she had brown stool. Colostomy bag was replaced by nursing staff. Discussed the case with Dr. Higgins. She did not feel this look like an acute hemorrhage in the bowel. I also discussed the case with Dr. Sargent who is on-call for cardiology and he did not believe the patient needed a heparin drip from a cardiac standpoint is likely due to cocaine since the delta troponin came back at 355. This was discussed with the hospitalist for admission. Impression: 1. Chest pain 2. NSTEMI 3. Cocaine abuse 4. Enteritis 5. UTI Lab Data Attestation: I reviewed the patient's lab results. Labs: Laboratory Results - last 24 hr 09/13/23 09/13/23 09/13/23 17:50 19:52 20:35 WBC 14.7 H RBC 5.25 Hgb 14.2 Hct 42.9 MCV 81.7 MCH 27.0 MCHC 33.1 RDW Std Deviation 50.0 H RDW Coeff of Shabana 17.8 H Plt Count 659 H MPV 9.0 Immature Gran % (Auto) 0.400 Neut % (Auto) 81.4 H Lymph % (Auto) 10.5 L [place] % (Auto) 6.4 Eos % (Auto) 0.8 Baso % (Auto) 0.5 Absolute Neuts (auto) 11.9 H Absolute Lymphs (auto) 1.54 Nucleated RBC % 0 Sodium 140 Potassium 4.2 Chloride 107 Carbon Dioxide 25.0 Anion Gap 8 BUN 19 H Creatinine 1.41 H Estim Creat Clear Calc 37.44 Est GFR (MDRD) Af Amer 49 L Est GFR (MDRD) Non-Af 40 L BUN/Creatinine Ratio 13.5 Glucose 112 H Calcium 10.5 H Total Bilirubin 0.40 AST 45 H ALT 18 Alkaline Phosphatase 67 Troponin I High Sens 369 H* 355 H* B-Natriuretic Peptide 754.1 H Total Protein 7.3 Albumin 3.5 Globulin 3.8 Albumin/Globulin Ratio 0.9 Lipase 23 Urine Color Yellow Urine Clarity Sl. Cloudy Urine pH 6.0 Ur Specific [place] 1.010 Urine Protein 30 H Urine Glucose (UA) Normal Urine Ketones 5 H Urine Occult Blood 25 H Urine Nitrite Positive H Urine Bilirubin Negative Urine Urobilinogen Normal Ur Leukocyte Esterase 500 H Urine RBC 0-5 SEEN Urine WBC 10-25 SEEN Ur Squamous Epith Cells 0 SEEN Urine Bacteria 3+ Urine Mucus 0 SEEN Urine Opiates Screen NEGATIVE Urine Methadone Screen NEGATIVE Ur Barbiturates Screen NEGATIVE Ur Phencyclidine Scrn NEGATIVE Ur Amphetamines Screen NEGATIVE MDMA (Ecstasy) Screen NEGATIVE U Benzodiazepines Scrn NEGATIVE Urine Cocaine Screen POSITIVE H U Cannabinoids Screen NEGATIVE Ur Drug Screen Comment Ethyl Alcohol < 3.0 Radiography Diagnostic Testing: Clinical Impression(s) from Imaging Studies Abdomen/Pelvis CT 09/13/23 17:52 IMPRESSION: Postsurgical changes status post partial resection of the left colon with transverse colostomy. Findings which may be consistent with nonspecific enteritis. Cannot definitively exclude mild hemorrhage within one of the loops of small bowel. Tagged red blood cell radionuclide studies would be helpful for further evaluation No evidence for small bowel obstruction or acute appendicitis . N.B. : The above Results were Read Back by Phan Desouza MD to Rigo Guzman DO, and understanding confirmed on 09/13/2023 20:47:18 (ET). Electronically Signed: Phan Desouza MD at 20:51 EDT , ADDENDUM: 09/13/232057 IMPRESSION: Postsurgical changes status post partial resection of the left colon with transverse colostomy. Findings which may be consistent with nonspecific enteritis. Cannot definitively exclude mild hemorrhage within one of the loops of small bowel. Tagged red blood cell radionuclide studies would be helpful for further evaluation No evidence for small bowel obstruction or acute appendicitis . N.B. : The above Results were Read Back by Phan Desouza MD to Rigo Guzman DO, and understanding confirmed on 09/13/2023 20:47:18 (ET). Electronically Signed: Phan Desouza MD at 20:51 EDT , Chest CTA 09/13/23 17:52 IMPRESSION: No acute cardiopulmonary pathology. No evidence for pulmonary embolus. Electronically Signed: Phan Desouza MD at 20:16 EDT , Discharge Plan Triage Chief Complaint: Abd Pain ED Provider: iRgo Guzman Dx/Rx/DC Orders Primary Care Provider: Phan Dee Referrals: Phan Dee MD [Primary Care Provider] - Print Language: French
--- NOTE | 2023-09-13 17:52 | CT_ITS ---
STUDY: CTA CHEST REASON FOR EXAM: Female, 58 years old. chest pain RADIATION DOSAGE (If Supplied By Facility): CTDIvol = ( 8.68 ) mGy, DLP = ( 265.65 ) mGycm TECHNIQUE: The examination was performed with the intravenous administration of IV 100mL Isovue-370. Post-processing of the angiographic images was performed, with multiplanar reformation and 3D reconstruction. Individualized dose optimization techniques were used for this CT. COMPARISON: April 16, 2017 FINDINGS: Normal enhancement of the main pulmonary artery and right and left pulmonary arteries. Normal enhancement of the bilateral peripheral pulmonary arteries. There is no demonstrated pulmonary embolism. Minor atherosclerotic change of aorta without evidence for aneurysm. There is no demonstrated aortic dissection. Normal heart and pericardium. No coronary artery calcification Normal mediastinum. Normal hilar regions. Normal visualized trachea and bronchi. The lungs are well expanded. There are subtle diffuse diffuse emphysematous changes and interstitial thickening in left lower lobe Normal pleura. Normal chest wall structures. Dorsal spine demonstrates degenerative changes. Normal visualized upper abdomen. CT/CTA Chest W/WO Contrast IMPRESSION: No acute cardiopulmonary pathology. No evidence for pulmonary embolus. Electronically Signed: Phan Desouza MD at 20:16 EDT ,
--- NOTE | 2023-09-13 17:52 | CT_ITS ---
STUDY: CT ABDOMEN AND PELVIS WITH CONTRAST REASON FOR EXAM: Female, 58 years old. abdominal pain RADIATION DOSAGE (If Supplied By Facility): CTDIvol = ( 11.52 ) mGy, DLP = ( 503.10 ) mGycm TECHNIQUE: Transaxial images were obtained from the dome of the diaphragm to the symphysis pubis without oral contrast. IV 100mL Isovue-370 was administered. Sagittal and coronal images were reconstructed. Individualized dose optimization techniques were used for this CT. COMPARISON: None. FINDINGS: The visualized lung bases are unremarkable. The visualized portions of the heart are within normal limits. Normal liver. Normal gallbladder and extrahepatic biliary system. 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 Normal pancreas. Normal bilateral adrenal glands. No evidence for renal obstruction. There is a cyst in the left kidney which will not require additional imaging. Normal visualized stomach. Mild nonspecific ileus but no evidence for small bowel obstruction however there were multiple loops of small bowel in the lower abdomen and pelvis demonstrating thickening of the folds which may be consistent with specific enteritis. There is small quantity of hyperattenuated fluid in the small bowel which in the absence of oral contrast administration may be consistent with intraluminal hemorrhage. Postsurgical changes status post partial resection of the left colon with transverse colostomy.. There is associated parastomal hernia. There is thickening of the pedraza and narrowing of the lumen of the distal transverse and descending colon consistent with nonspecific inflammatory bowel disease. Diverticular changes in the descending colon without evidence for acute diverticulitis. No evidence for acute appendicitis.. Atherosclerotic change of the aorta without evidence for aneurysm. Normal inferior vena cava. Normal retroperitoneum. Tiny fat-containing umbilical hernia Poorly distended thick walled bladder likely of no significance. Uterus not visualized status post hysterectomy . Lumbar spine demonstrates degenerative changes CT/Abdomen/Pelvis W IV Cont ONLY IMPRESSION: Postsurgical changes status post partial resection of the left colon with transverse colostomy. Findings which may be consistent with nonspecific enteritis. Cannot definitively exclude mild hemorrhage within one of the loops of small bowel. Tagged red blood cell radionuclide studies would be helpful for further evaluation No evidence for small bowel obstruction or acute appendicitis . N.B. : The above Results were Read Back by Phan Desouza MD to Rigo Guzman DO, and understanding confirmed on 09/13/2023 20:47:18 (ET). Electronically Signed: Phan Desouza MD at 20:51 EDT ,
[2023-09-13 18:00] LABS: Absolute Lymphocyte Count 1.54 X10^3/uL (0.83-4.51); Absolute Neutrophil Count 11.9 X10^3/uL (2.0-7.7); Basophil# 0.08 X10^3/uL; Basophil% 0.5 % (0-1); Eosinophil# 0.12 X10^3/uL; Eosinophils% 0.8 % (0-5); Hematocrit 42.9 % (37-47); Hemoglobin 14.2 g/dL (12.0-15.0); Lymphocyte # 1.54 X10^3/ul (0.83-4.51); Lymphocyte % 10.5 % (19-41); Mean Corp Hgb Conc 33.1 g/dL (32-36); Mean Corpuscular Volume 81.7 fL (81-99); Monocyte# 0.94 X10^3/uL; Monocyte% 6.4 % (0-10); NRBC Flagged by Analyzer 0 % (0-5); Neutrophil # 11.93 X10^3/uL (2.7-7.7); Neutrophil % 81.4 % (47-70); Platelet Count 659 K/mm3 (150-450); RBC Distribution Width CV 17.8 % (11.6-14.6); Red Blood Count 5.25 M/mm3 (4.2-5.4); White Blood Count 14.7 K/mm3 (4.4-11.0)
--- NOTE | 2023-09-13 18:25 | ED.RN ---
1820: The patient presented with an ostomy bag that was taped to the skin. The unit was changed. On assessment the stoma was prolapse approx. 6 inches. in length and is 2mm in diameter. The stoma itself is very red with minimal bleeding, the skin is excoriated and sloughing. The tip of the stoma is brownish-purple in color, and I am unable to visualize a meatal opening. There was approx. 50 cc of light brown, loose/liquid, odorous fecal matter measured from the existing application; however, the colostomy was leaking at the time. The peristoma has redness with the skin intact. The abdomen is tender in the LUQ and LLQ, firm to the touch, and rounded. The skin was cleaned with a mild cleanser, water, wash rags. A new appliance (flange and bag) was applied and skin protecting wipes were utilized to promote adhesion and skin protection.
[2023-09-13 18:38] LABS: Alcohol, Blood (Medical)-Serum < 3.0 mg/dL
[2023-09-13 18:41] LABS: ALB/GLOB Ratio 0.9 RATIO (0.9-2.4); AST(SGOT) 45 U/L (15-37); Alanine Aminotransfer ALT/SGPT 18 U/L (13-56); Albumin, Serum 3.5 g/dL (3.2-5.0); Alkaline Phosphatase 67 U/L (45-117); Anion Gap 8 (5-15); BUN 19 mg/dL (7-18); BUN/Creat Ratio 13.5 RATIO (10-20); Calcium,Total 10.5 mg/dL (8.5-10.1); Chloride 107 mmol/L (98-107); Creatinine, Serum 1.41 mg/dL (0.55-1.02); EST Glomerular Filtration Rate 40 mL/min (>60); Est Glom Filt Rate - Afr Amer 49 mL/min (>60); Estimated Creatinine Clearance 37.44 ml/min; Globulin 3.8 g/dL (2.2-4.2); Glucose 112 mg/dL (74-106); Lipase 23 U/L (13-75); Potassium 4.2 mmol/L (3.5-5.1); Protein, Total 7.3 g/dL (6.4-8.2); Sodium Level 140 mmol/L (136-145); Troponin-I HS 369 pg/mL (3.0-54.0)
[2023-09-13] MEDS: 0.9% Normal Saline (1000mL) 1,000 ML 999 ML IV (18:47)
[2023-09-13 18:50] LABS: BNP,B-Type NATRIURETIC PEPTIDE 754.1 pg/mL (0-100)
--- NOTE | 2023-09-13 19:17 | ED.RN ---
The patient had asked if I could attempt to call Madelin Leonard and have her or someone else in the family come to visit her in the ER. The family member was contacted and someone will be in to visit the patient.
[2023-09-13 19:58] LABS: Mucous, Urine 0 SEEN /hpf (<or=2+); Squamous Epithelial Cells - UA 0 SEEN /hpf (5-10)
[2023-09-13 20:01] LABS: Color, Urine Yellow (Yellow); Glucose, Dipstick Normal (Normal); Ketone-Dipstick 5 mg/dl (Negative); Leukocyte Esterase-Dipstick 500 /ul (Negative); Nitrite-Dipstick Positive (Negative); Occult Blood-Urine 25 /ul (Negative); Protein-Dipstick 30 mg/dl (Negative); Urine Bilirubin Dipstick Negative (Negative); Urine Clarity Sl. Cloudy (Clear); Urine Urobilinogen Normal (Normal)
--- NOTE | 2023-09-13 20:08 | EKG12_ITS ---
Test Reason : DYSRHYTHMIA Blood Pressure : / mmHG Vent. Rate : 079 BPM Atrial Rate : 079 BPM P-R Int : 166 ms QRS Dur : 104 ms QT Int : 482 ms P-R-T Axes : 081 097 216 degrees QTc Int : 552 ms Critical Test Result: Long QTc Normal sinus rhythm Right atrial enlargement Rightward axis Possible Inferior infarct , age undetermined ST & T wave abnormality, consider lateral ischemia Prolonged QT Abnormal ECG Confirmed by Mickey Rea ([id number]), subeditor WILDA WOODS ([id number]) on 09/15/2023 8:59:53 AM Referred By: Confirmed By:Mickey Rea
[2023-09-13 20:13] LABS: Bacteria 3+ /hpf (None Seen); Red Blood Cells-Urine 0-5 SEEN /hpf (0-5); White Blood Cells 10-25 SEEN /hpf (0-5)
[2023-09-13 20:21] LABS: Amphetamine Urine VISTA NEGATIVE (<1000 ng/mL); Barbiturate Urine VISTA NEGATIVE (< 200 ng/mL); Benzodiazepine Urine VISTA NEGATIVE (< 200 ng/mL); Cocaine Urine VISTA POSITIVE (< 300 ng/mL); Ecstacy Urine VISTA NEGATIVE (< 500 ng/mL); Methadone Urine VISTA NEGATIVE (< 300 ng/mL); PCP Urine VISTA NEGATIVE (< 25 ng/mL); THC Urine VISTA NEGATIVE (< 50 ng/mL); Vista UDS pH Range 6
[2023-09-13] MEDS: Morphine 4 MG/ML Syringe IV (21:00)
[2023-09-13] MEDS: Ondansetron 4 MG/2 ML Vial IV (21:00)
[2023-09-13] MEDS: Ceftriaxone 1 GM/50 ML BAG IV (21:00)
[2023-09-13 21:24] LABS: Troponin-I HS 355 pg/mL (3.0-54.0)
--- NOTE | 2023-09-13 22:59 | ED.RN ---
2145: PATIENT REFUSED ASPIRIN DESPITE BEING EDUCATED ABOUT HER INCREASED PLATELET AND BENEFIT FOR HEART HEALTH, PROVIDER WAS NOTIFIED.
--- NOTE | 2023-09-13 23:25 | HP.PCM.HOS_ITS ---
HPI - General General Date of Service: 09/13/23 Chief Complaint: abdominal pain HPI Narrative YONIS DAMON, is a 58 F who presents with a myriad of complaints, including abdominal pain, prolapsed stoma, chest pain, getting kicked out of numerous houses and couch surfing. The patient stated that she has been clean from cocaine but did use some today and afterwards she experienced shortness of breath and chest pain. Those symptoms have improved. But she has been living at numerous houses and has been kicked out from 1 house to another and really does not have a place to live at this time. She has a prolapsed stoma which is been present for a few weeks now. Back in June, patient had a stoma for rectal cancer performed. She states that her stoma has been very malodorous. It was noted by the emergency room physician that the stoma was not well cared for when she initially her arrived and was encased in stool in stoma bag. Stoma bag was changed while she was in the emergency room. [facility] Medical History (Updated 09/13/23 @ 23:[address] Leti Higgins MD) Prolapse of stoma Cocaine abuse Colostomy in place CHF (congestive heart failure) Rectal cancer Bipolar disorder Benign essential hypertension Allergy/AdvReac Type Severity Reaction Status Date / Time bee venom protein (honey bee) Allergy Anaphylaxis Verified 04/08/23 13:43 Penicillins Allergy Unknown Verified 04/08/23 13:43 Family History (Updated 09/13/23 @ 23:[address] Marcos Yuan DO) Other Heart disease Social History (Updated 09/13/23 @ 23:[address] Marcos Yuan DO) housing: house Smoking Status: Current every day smoker tobacco type: cigarettes substance use type: crack/cocaine ROS ROS Narrative Chills. All review of systems were negative except as mentioned above in the history of present illness and the other review of systems. Vital Signs Vital Signs Vital Signs: 09/13/23 17:20 09/13/23 17:25 09/13/23 18:00 Temperature 37.0 C 37.0 C Temperature Source Oral Oral Pulse Rate 92 90 Respiratory Rate 18 17 Respiratory Effort Normal Respiratory Pattern Tachypnea Blood Pressure 163/109 H 163/109 H Blood Pressure Mean 127 127 Pulse Ox 98 95 Oxygen Delivery Method Room Air Room Air 09/13/23 18:25 09/13/23 19:00 09/13/23 19:19 Temperature 36.6 C 37.2 C Temperature Source Oral Oral Pulse Rate 88 89 85 Respiratory Rate 24 H 22 H 20 H Respiratory Effort Respiratory Pattern Blood Pressure 164/102 H 156/74 H 153/99 H Blood Pressure Mean 122 101 117 Pulse Ox 98 97 95 Oxygen Delivery Method Room Air Room Air Room Air 09/13/23 20:00 09/13/23 21:00 09/13/23 22:00 Temperature 36.8 C 36.8 C 36.8 C Temperature Source Oral Oral Oral Pulse Rate 78 75 74 Respiratory Rate 21 H 16 16 Respiratory Effort Respiratory Pattern Blood Pressure 131/97 H 146/94 H 136/92 H Blood Pressure Mean 108 111 106 Pulse Ox 96 97 97 Oxygen Delivery Method Room Air Room Air Room Air 09/13/23 23:00 Temperature 36.6 C Temperature Source Oral Pulse Rate 74 Respiratory Rate 10 L Respiratory Effort Respiratory Pattern Blood Pressure 134/100 H Blood Pressure Mean 111 Pulse Ox 94 Oxygen Delivery Method Room Air Weight Weight: 55.9 kg Body Mass Index (BMI) 18.7 Physical Exam Const alert Constitutional Narrative: Anxious. Appears older than stated age. Nontoxic. General Appearance: cooperative HEENT normocephalic, head/scalp atraumatic and moist oral mucous membranes Eyes Eyes Narrative: No icterus Neck no lymphadenopathy Neck Narrative: No thyromegaly Resp normal respiratory effort, no retractions, no use of accessory muscles and clear to auscultation bilaterally Cardio regular rate, regular rhythm, S1 normal heart sound and S2 normal heart sound GI GI Narrative: Prolapsed stoma left lower quadrant. Area is beefy red. It is firm distally. There are some whitish-grayish discoloration distally. No necrosis noted. There did appear to be some blood in the stoma bag blood was of watery consistency and was of a small amount. Extremity normal to inspection and no clubbing, cyanosis or edema Neuro moves all extremities Sensorium / Orientation: awake and alert Psych affect normal Results Lab / Micro Data Attestation: I reviewed the patient's lab results. 09/13/23 17:50 09/13/23 17:50 Labs: Laboratory Results - last 24 hr 09/13/23 17:50: WBC 14.7 H, RBC 5.25, Hgb 14.2, Hct 42.9, MCV 81.7, MCH 27.0, MCHC 33.1, RDW Std Deviation 50.0 H, RDW Coeff of Shabana 17.8 H, Plt Count 659 H, MPV 9.0, Immature Gran % (Auto) 0.400, Neut % (Auto) 81.4 H, Lymph % (Auto) 10.5 L, Weld % (Auto) 6.4, Eos % (Auto) 0.8, Baso % (Auto) 0.5, Absolute Neuts (auto) 11.9 H, Absolute Lymphs (auto) 1.54, Nucleated RBC % 0, Sodium 140, Potassium 4.2, Chloride 107, Carbon Dioxide 25.0, Anion Gap 8, BUN 19 H, Creatinine 1.41 H , Estim Creat Clear Calc 37.44, Est GFR (MDRD) Af Amer 49 L, Est GFR (MDRD) Non- Af 40 L, BUN/Creatinine Ratio 13.5, Glucose 112 H, Calcium 10.5 H, Total Bilirubin 0.40, AST 45 H, ALT 18, Alkaline Phosphatase 67, Troponin I High Sens 369 H*, B-Natriuretic Peptide 754.1 H, Total Protein 7.3, Albumin 3.5, Globulin 3.8, Albumin/Globulin Ratio 0.9, Lipase 23, Ethyl Alcohol < 3.0 09/13/23 19:52: Urine Color Yellow, Urine Clarity Sl. Cloudy, Urine pH 6.0, Ur Specific [place] 1.010, Urine Protein 30 H, Urine Glucose (UA) Normal, Urine Ketones 5 H, Urine Occult Blood 25 H, Urine Nitrite Positive H, Urine Bilirubin Negative, Urine Urobilinogen Normal, Ur Leukocyte Esterase 500 H, Urine RBC 0-5 SEEN, Urine WBC 10-25 SEEN, Ur Squamous Epith Cells 0 SEEN, Urine Bacteria 3+, Urine Mucus 0 SEEN, Urine Opiates Screen NEGATIVE, Urine Methadone Screen NEGATIVE, Ur Barbiturates Screen NEGATIVE, Ur Phencyclidine Scrn NEGATIVE, Ur Amphetamines Screen NEGATIVE, MDMA (Ecstasy) Screen NEGATIVE, U Benzodiazepines Scrn NEGATIVE, Urine Cocaine Screen POSITIVE H, U Cannabinoids Screen NEGATIVE, Ur Drug Screen Comment 09/13/23 20:35: Troponin I High Sens 355 H* EKG Initial EKG: Attestation: I personally reviewed and interpreted this EKG as follows: Prior EKG tracings: available for review Imaging Radiology Impression Abdomen/Pelvis CT 09/13/23 17:52 IMPRESSION: Postsurgical changes status post partial resection of the left colon with transverse colostomy. Findings which may be consistent with nonspecific enteritis. Cannot definitively exclude mild hemorrhage within one of the loops of small bowel. Tagged red blood cell radionuclide studies would be helpful for further evaluation No evidence for small bowel obstruction or acute appendicitis . N.B. : The above Results were Read Back by Phan Desouza MD to Rigo Guzman DO, and understanding confirmed on 09/13/2023 20:47:18 (ET). Electronically Signed: Phan Desouza MD at 20:51 EDT , ADDENDUM: 09/13/232057 IMPRESSION: Postsurgical changes status post partial resection of the left colon with transverse colostomy. Findings which may be consistent with nonspecific enteritis. Cannot definitively exclude mild hemorrhage within one of the loops of small bowel. Tagged red blood cell radionuclide studies would be helpful for further evaluation No evidence for small bowel obstruction or acute appendicitis . N.B. : The above Results were Read Back by Phan Desouza MD to Rigo Guzman DO, and understanding confirmed on 09/13/2023 20:47:18 (ET). Electronically Signed: Phan Desouza MD at 20:51 EDT , Chest CTA 09/13/23 17:52 IMPRESSION: No acute cardiopulmonary pathology. No evidence for pulmonary embolus. Electronically Signed: Phna Desouza MD at 20:16 EDT , Assessment & Plan Assessment/Plan (1) NSTEMI, initial episode of care: (2) Prolapse of stoma: (3) GI bleed: PLAN: Plan NSTEMI * Unclear which type. Could be cocaine induced as patient endorsed using crack cocaine prior to arrival and prior to her symptoms. * Patient declined aspirin in the emergency room. Will hold off on administering any additional aspirin or anticoagulation at this time as it appears the patient does have some blood in her stool. * Troponins fortunately are trending down. * Plan: Check 2D echocardiogram, continue to cycle troponins, consult cardiology. As mentioned above, hold off on any additional aspirin and anticoagulation at this point. Since patient did actively use cocaine prior to arrival, would avoid beta-blockers at this time. Prolapsed stoma * This been present for couple weeks now. * I reviewed with Dr. Higgins and says her type of ostomy is prone to prolapse. She did come to evaluate the patient in the ED and felt it was ischemic and recommended transfer back to [facility], where her bowel resection and stoma took place. GI bleed; * Unclear source. Unclear if related with the ischemic bowel. * Protonix Chronic conditions * Rectal cancer: Status post resection. Patient is to follow-up with Dr. Dubon as outpatient. VTE prophylaxis with SCDs. Disposition: Awaiting on acceptance at tertiary facility. I was initially contacted for the patient's other complaints as an admission but the ongoing issues with her bowel or currently taking precedent. Charges/Coding Visit Charges Inpatient E&M: 06038 Init Hosp L3
--- NOTE | 2023-09-13 23:34 | EX.PCM.CON.S ---
Assessment & Plan Assessment/Plan (1) Prolapse of stoma: (2) Ischemic necrosis of large intestine: (3) NSTEMI, initial episode of care: PLAN: Plan Would recommend transfer to tertiary care facility/[facility] who patient has seen before and she will likely need revision of her loop colostomy. Leti Higgins M.D. Pager: [phone] [facility] [address] [place] [address], Outpatient Pavilion, [address] [place] [address] Office: [phone] HPI Consult Data Date of Consult: 09/13/23 HPI Narrative HPI Narrative: YONIS DAMON, is a 58 F who presents to the ER due to abdominal pain and chest pain. Patient is currently homeless and has been couch surfing. Patient does have past medical history for rectal cancer which was initially treated in with chemo and radiation. Patient states it did recur and patient had transverse loop colostomy placed in June 2023 at [facility]. Patient states that she has had 2 rounds of chemotherapy with Dr. Dubon however last one was about 2 weeks ago patient has not gone back recently due to being homeless and financial issues. Patient was seen in the ER in late July for prolapse stoma which was able to be easily reduced. Patient states it has been prolapsed for about a week and then if it looks darker with cuellar exudate and has again looked like that for about a week. Patient states she has been having some looser stools but has not been eating much p.o. per patient. Patient did admit to smoking cocaine tonight states she had been sober since 2017 from cocaine. Toxicology screen showed the same and she also had positive troponin. [facility] Medical History (Updated 09/13/23 @ 23:[address] Leti Higgins MD) Prolapse of stoma Cocaine abuse Colostomy in place CHF (congestive heart failure) Rectal cancer Bipolar disorder Benign essential hypertension Allergy/AdvReac Type Severity Reaction Status Date / Time bee venom protein (honey bee) Allergy Anaphylaxis Verified 04/08/23 13:43 Penicillins Allergy Unknown Verified 04/08/23 13:43 Family History (Updated 09/13/23 @ 23:[address] Marcos Yuan DO) Other Heart disease Social History (Updated 09/13/23 @ 23:[address] Marcos Yuan DO) housing: house Smoking Status: Current every day smoker tobacco type: cigarettes substance use type: crack/cocaine ROS Constitutional Constitutional: Reports anorexia ENT HEENT: Denies dysphagia Cardiovascular Cardiovascular: Reports chest pain Respiratory/Chest Respiratory/Chest: Denies productive cough Gastrointestinal Gastrointestinal: Reports abdominal pain and diarrhea; Denies constipation Genitourinary Genitourinary: Denies dysuria Integumentary Integumentary: Denies jaundice Physical Exam Const alert HEENT normocephalic and head/scalp atraumatic Resp normal respiratory effort Cardio regular rate GI soft to palpation; Negative for non-distended GI Narrative: Left upper quadrant transverse colostomy prolapse with grayish exudate and necrotic appearing distal stoma?this was not attempted to be reduced due to pain and also reducing likely nonviable stoma Palpation: tender other; Negative for guarding Extremity no clubbing, cyanosis or edema Neuro CN's II-XII intact bilaterally Psych mental status grossly normal Lab / Micro Data 09/13/23 17:50 09/13/23 17:50 Labs: Laboratory Results - last 24 hr 09/13/23 17:50: WBC 14.7 H, RBC 5.25, Hgb 14.2, Hct 42.9, MCV 81.7, MCH 27.0, MCHC 33.1, RDW Std Deviation 50.0 H, RDW Coeff of Shabana 17.8 H, Plt Count 659 H, MPV 9.0, Immature Gran % (Auto) 0.400, Neut % (Auto) 81.4 H, Lymph % (Auto) 10.5 L, [place] % (Auto) 6.4, Eos % (Auto) 0.8, Baso % (Auto) 0.5, Absolute Neuts (auto) 11.9 H, Absolute Lymphs (auto) 1.54, Nucleated RBC % 0, Sodium 140, Potassium 4.2, Chloride 107, Carbon Dioxide 25.0, Anion Gap 8, BUN 19 H, Creatinine 1.41 H, Estim Creat Clear Calc 37.44, Est GFR (MDRD) Af Amer 49 L, Est GFR (MDRD) Non-Af 40 L, BUN/Creatinine Ratio 13.5, Glucose 112 H, Calcium 10.5 H, Total Bilirubin 0.40, AST 45 H, ALT 18, Alkaline Phosphatase 67, Troponin I High Sens 369 H*, B-Natriuretic Peptide 754.1 H, Total Protein 7.3, Albumin 3.5, Globulin 3.8, Albumin/Globulin Ratio 0.9, Lipase 23, Ethyl Alcohol < 3.0 09/13/23 19:52: Urine Color Yellow, Urine Clarity Sl. Cloudy, Urine pH 6.0, Ur Specific [place] 1.010, Urine Protein 30 H, Urine Glucose (UA) Normal, Urine Ketones 5 H, Urine Occult Blood 25 H, Urine Nitrite Positive H, Urine Bilirubin Negative, Urine Urobilinogen Normal, Ur Leukocyte Esterase 500 H, Urine RBC 0-5 SEEN, Urine WBC 10-25 SEEN, Ur Squamous Epith Cells 0 SEEN, Urine Bacteria 3+, Urine Mucus 0 SEEN, Urine Opiates Screen NEGATIVE, Urine Methadone Screen NEGATIVE, Ur Barbiturates Screen NEGATIVE, Ur Phencyclidine Scrn NEGATIVE, Ur Amphetamines Screen NEGATIVE, MDMA (Ecstasy) Screen NEGATIVE, U Benzodiazepines Scrn NEGATIVE, Urine Cocaine Screen POSITIVE H, U Cannabinoids Screen NEGATIVE, Ur Drug Screen Comment 09/13/23 20:35: Troponin I High Sens 355 H* Imaging Radiology Impression Abdomen/Pelvis CT 09/13/23 17:52 IMPRESSION: Postsurgical changes status post partial resection of the left colon with transverse colostomy. Findings which may be consistent with nonspecific enteritis. Cannot definitively exclude mild hemorrhage within one of the loops of small bowel. Tagged red blood cell radionuclide studies would be helpful for further evaluation No evidence for small bowel obstruction or acute appendicitis . N.B. : The above Results were Read Back by Phan Desouza MD to Rigo Guzman DO, and understanding confirmed on 09/13/2023 20:47:18 (ET). Electronically Signed: Phan Desouza MD at 20:51 EDT , ADDENDUM: 09/13/232057 IMPRESSION: Postsurgical changes status post partial resection of the left colon with transverse colostomy. Findings which may be consistent with nonspecific enteritis. Cannot definitively exclude mild hemorrhage within one of the loops of small bowel. Tagged red blood cell radionuclide studies would be helpful for further evaluation No evidence for small bowel obstruction or acute appendicitis . N.B. : The above Results were Read Back by Phan Desouza MD to Rigo Guzman DO, and understanding confirmed on 09/13/2023 20:47:18 (ET). Electronically Signed: Phan Desouza MD at 20:51 EDT , Chest CTA 09/13/23 17:52 IMPRESSION: No acute cardiopulmonary pathology. No evidence for pulmonary embolus. Electronically Signed: Phan Desouza MD at 20:16 EDT ,
[2023-09-14] VITALS (11 sets, daily range): BP systolic 115–145; BP diastolic 79–103; PULSE 13–76; RESP 10–67; TEMP 36.4–37; O2SAT 92–97
--- NOTE | 2023-09-14 00:06 | ED.RN ---
No antibiotics on unit, pharmacy called for antibiotics. I was informed they will be sending it.
[2023-09-14] MEDS: metroNIDAZOLE 500 MG/100 ML BAG 100 MG IV (00:24)
[2023-09-14 05:13] LABS: Troponin-I HS 262 pg/mL (3.0-54.0)
--- NOTE | 2023-09-14 07:13 | ED.RN ---
[facility] called and no bed at this time and unknown time when bed will be available
== END 2023-09-14 11:39 | disposition short-term general hospital (02) ==
PROVIDERS: Student in an Organized Health Care Education/Training Program; PCP Family Medicine
DX: I21.4 Non-ST elevation (NSTEMI) myocardial infarction (principal); F14.10 Cocaine abuse, uncomplicated; I11.0 Hypertensive heart disease with heart failure; I50.9 Heart failure, unspecified; F31.9 Bipolar disorder, unspecified; N39.0 Urinary tract infection, site not specified; K52.9 Noninfective gastroenteritis and colitis, unspecified; F17.210 Nicotine dependence, cigarettes, uncomplicated
CPT/HCPCS: 71275; 74177; 80053; 80307; 80320; 81001; 83690; 83880; 84484; 85025; 93005; 96361; 96374; 96375; 99285; J7030; J7040; Q9967; A4216; G0480; J2405

== ENCOUNTER 2023-11-12 22:17 | Emergency (ER) | payer MEDICAID, SELFPAY ==
[2023-11-12 22:19] VITALS: BP 193/123; PULSE 104; RESP 22; TEMP 36.1; O2SAT 96; BMI 18.1
--- NOTE | 2023-11-12 22:29 | ED.RN ---
Pt arrived to triage yelling that she needed to be seen immediately because she felt her chemo pump wasn't working correctly. She stated that it was placed today and she complained at the time that it was burning. Per the pt, upon insertion they felt it was working properly anyway and sent her home. Pt was yelling at this RN that she felt she was dying and had a history of heart attack. This RN explained to the pt that there were no available rooms at the moment but if she would come to get weighed this RN would get her checked in and ready to go to a room once one was clean. Pt began yelling that her weight was 102 pounds and I'm fucking dying and you have to weigh me?! This RN explained the importance of an accurate weight for medications and treatment. Pt refused to stand still on the scale making it impossible for weight and this RN explained that if the pt would stand still then it would work. Pt collected her belongings and stated she was going somewhere else because this is bullshit that this RN is trying to get a weight. Eventually pt was able to stand on scale to get accurate weight. Pt was then asked to have a seat in the triage room. Pt was irate that this RN and other staff were asking her questions to get her checked in. Pt was loud and unable to follow directions, refusing to answer simple questions. While bp cuff was inflating pt screamed to take this off, it's turning my hand red and removed the bp cuff and threw it on the ground. When another RN attempted to explain the need for vital signs including bp the pt yelled at her to take this fucking thing out! and pointed to her chemo infusion needle and port. RN explained that she could not do that and we would get her back to the doctor for them to assess it. Pt pulled chemo needle with attached tubing and pump out of port and threw it across the room. Triage assessment was completed to best of this RN's ability and pt was placed in a room for MD evaluation.
--- NOTE | 2023-11-12 22:32 | ED.RN ---
RN STANDING AT FRONT NURSES STATION WHEN SHE HEARD YELLING AT TRIAGE DESK. PD MENG, SECURITY EFREN, CRISTELA,TOYIN AND THIS RN AT DESK. PATIENT YELLING UNCONTROLLABLY AT CRISTELA STATING I CAN'T FUCKING STAND STILL ON THE SCALE. I'M HAVING TOO MUCH PATIENT. PT LEANING AGAINST WALL WHEN SHE WAS ASKED BY TOYIN ARCHIBALD TO NO LEAN AGAINST THE WALL TO GET AN ACCURATE WEIGHT. PATIENT BEGAN YELLING AGAIN SORRY THERE WEREN'T ANY FUCKING DIRECTION ON HOW TO STAND ON SCALE. HOW AM I SUPPOSED TO KNOW WHAT TO FUCKING DO? WE DID GET A WEIGHT AND THEN ASKED THE PATIENT TO MOVE INTO THE TRIAGE ROOM TO OBTAIN VITALS. PATIENT CONTINUES TO YELL I COULD HAVE TOLD YOU HOW MUCH I FUCKING WEIGH IF YOU WOULD JUST LISTEN. RN STATES IT IS PROTOCOL FOR US TO OBTAIN A WEIGHT ON EVERY PATIENT. PATIENT INFORMED BY THIS RN WE WILL APPLY THE BLOOD PRESSURE CUFF AND PULSE OX. PT AGREES. WHILE THE BLOOD PRESSURE CUFF WAS PUMPING, CRISTELA ASKED PATIENT WHAT BRING HER TO THE EMERGENCY ROOM. PATIENT BEGINS YELLING AGAIN- IF YOU WOULD JUST FUCKING LISTEN FOR THE LAST 30 MINUTES YOU WOULD KNOW WHAT BRINGS ME TO THE EMERGENCY ROOM. I SHOULD HAVE FUCKING GONE TO [facility]. THEY WOULDN'T HAVE TREATED ME LIKE THIS. RN STATES WE ARE ASKING YOU STANDARD QUESTIONS EVERYONE GETS ASKED WHEN COMING TO ED. PATIENT RIPS OF BLOOD PRESSURE CUFF YELLING MY ARM IS ABOUT TO EXPLODE. DON'T PUT IT ON SO FUCKING TIME YOU BITCH. THIS RN STATES YOU ARE IS NOT GOING TO EXPLODE. WE NEED TO OBTAIN AN ACCURATE BLOOD PRESSURE. PT STATES I'VE HAD BLOOD PRESSURE TAKEN A BUNCH OF TIMES BEFORE AND NEVER HAS IT MADE MY ARM TURN RED LIKE THAT. PT CONTINUES TO YELL AND RIPS OUT PORT NEEDLE CONTAINING CHEMO. RN STEPS OUT OF WAY SHE THROWS THE NEEDLE ON THE GROUND. PATIENT HAS FINISHED BEING TRIAGE. KRISTI CHARGE NURSE NOTIFIED OF INCIDENT AND OF CHEMO INFUSION. INFUSION HAS BEEN STOPPED. WHEN PATIENT GETS TO ROOM, SHE HAS BEEN GIVEN A HOSPITAL GOWN AND ASKED TO BE CHANGE INTO SO A DOCTOR CAN ASSESS HER. PT STATES WELL I THINK I'M JUST GONNA HAVE TO THINK ABOUT THAT BEFORE I FUCKING DO IT. RN INFORMS PATIENT HER LANGUAGE IS NOT NECESSARY IN THIS ER. PATIENT STATES I'LL USE WHATEVER FUCKING LANGUAGE I WANT TO. PD MENG AT BEDSIDE.
[2023-11-12 22:45] VITALS: BP 172/89; PULSE 79; RESP 18; O2SAT 99
--- NOTE | 2023-11-12 23:03 | RAD_ITS ---
INDICATION: chest pain EXAMINATION/TECHNIQUE: X-RAY - XR Chest 2 Views COMPARISON: No relevant prior comparison study available FINDINGS: LINES/DEVICES: MediPort is seen on the right side, its tip is at the cavoatrial junction. LUNGS: No consolidation, edema or effusion. No pneumothorax. MEDIASTINUM AND CARDIOVASCULAR STRUCTURES: Cardiac silhouette not enlarged. Central airways and mediastinal contour are unremarkable. BONES AND SOFT TISSUES: Old healed left rib fractures. RAD/Chest PA and Lateral IMPRESSION: No radiographic evidence of acute cardiopulmonary disease. Electronically Signed: Keri Amaro MD at 0:11 EDT ,
[2023-11-12] MEDS: DiphenhydrAMINE 50 MG/ML Syringe IV (23:33)
[2023-11-12] MEDS: 0.9% Normal Saline (1000mL) 1,000 ML 999 ML IV (23:33)
[2023-11-12] MEDS: LORazepam 2 MG/ML Syringe 0.5 MG IV (23:33)
[2023-11-12] MEDS: Ketorolac 30 MG/ML Syringe IV (23:33)
[2023-11-12 23:47] LABS: Absolute Lymphocyte Count 0.79 X10^3/uL (0.83-4.51); Absolute Neutrophil Count 7.7 X10^3/uL (2.0-7.7); Basophil# 0.04 X10^3/uL; Basophil% 0.4 % (0-1); Hemoglobin 12.9 g/dL (12.0-15.0); Lymphocyte # 0.79 X10^3/ul (0.83-4.51); Mean Corp Hgb Conc 32.3 g/dL (32-36); Mean Corpuscular Hgb 26.9 pg (27.0-32.0); Mean Corpuscular Volume 83.3 fL (81-99); Monocyte# 1.38 X10^3/uL; NRBC Flagged by Analyzer 0.2 % (0-5); Neutrophil # 7.65 X10^3/uL (2.7-7.7); Neutrophil % 77.3 % (47-70); Platelet Count 430 K/mm3 (150-450); RBC Distribution Width CV 18.6 % (11.6-14.6); RBC Distribution Width SD 53.5 fl (35.1-43.9); White Blood Count 9.9 K/mm3 (4.4-11.0)
[2023-11-13 00:16] LABS: Anion Gap 10 (5-15); BUN 31 mg/dL (7-18); BUN/Creat Ratio 30.1 RATIO (10-20); Chloride 106 mmol/L (98-107); Creatinine, Serum 1.03 mg/dL (0.55-1.02); EST Glomerular Filtration Rate 58 mL/min (>60); Est Glom Filt Rate - Afr Amer 70 mL/min (>60); Estimated Creatinine Clearance 51.28 ml/min; Glucose 123 mg/dL (74-106); Potassium 4.4 mmol/L (3.5-5.1); Sodium Level 138 mmol/L (136-145)
[2023-11-13 00:26] VITALS: BP 145/80; PULSE 99; RESP 18; O2SAT 97
--- NOTE | 2023-11-13 00:36 | EX.ED.DYSGE1 ---
HPI History of Present Illness Chief Complaint: Wound Check Informant: patient and friend Narrative Narrative: Patient is a 58-year-old female with past medical history of rectal cancer. She states secondary to this she has had to have a colostomy and she reports she has had a port in place in her right chest wall for 6 years. She states that today she went to her oncologist and had her port accessed and an infusion of fluorouracil was started. She states that as a began to infuse it felt like it was not moving through her port but instead leaking into the surrounding tissues which was causing burning and pain. She states she had them stop the infusion and they tried reaccessing the port and trying once again but she had similar symptoms. Patient states despite taking her home medication and waiting hours for symptoms to resolve as sensation of pain and burning has not relented and secondary to this she comes in for evaluation [facility] Medical History (Updated 11/13/23 @ 04:[address] Sawyer Orozco DO) Prolapse of stoma Cocaine abuse Colostomy in place CHF (congestive heart failure) Rectal cancer Bipolar disorder Benign essential hypertension Allergy/AdvReac Type Severity Reaction Status Date / Time bee venom protein (honey bee) Allergy Anaphylaxis Verified 11/12/23 22:19 Penicillins Allergy Unknown Verified 11/12/23 22:19 Family History (Updated 09/13/23 @ 23:[address] Marcos Yuan DO) Other Heart disease Social History (Updated 09/13/23 @ 23:[address] Marcos Yuan DO) housing: house Smoking Status: Current every day smoker tobacco type: cigarettes substance use type: crack/cocaine ROS ROS ED Constitutional Constitutional ED: Denies chills or fever(s) Eyes Eyes: Denies blurry vision or change in vision ENT ENT ED: Denies sore throat Cardiovascular Cardiovascular: Reports chest pain and other Details: Patient describes chest pain as chest wall pain around the port Respiratory/Chest Respiratory/Chest: Denies cough or dyspnea Gastrointestinal Gastrointestinal: Reports nausea; Denies abdominal pain, diarrhea or vomiting Musculoskeletal Musculoskeletal: Reports neck pain Integumentary Denies Abrasions or rash Neurologic Neurologic: Reports headache(s) Hematologic/Lymphatic Hematologic/Lymphatic: Denies easy bleeding or easy bruising EXAM Physical Exam Const Vital Signs: 11/12/23 22:19 11/12/23 22:45 11/13/23 00:26 Temperature 97 F L Temperature Source Temporal Pulse Rate 104 H 79 99 Respiratory Rate 22 H 18 18 Blood Pressure 193/123 H 172/89 H 145/80 H Blood Pressure Mean 146 116 101 Pulse Ox 96 99 97 Oxygen Delivery Method Room Air Room Air Room Air 11/13/23 00:41 Temperature 98.7 F Temperature Source Pulse Rate 102 H Respiratory Rate 18 Blood Pressure 156/89 H Blood Pressure Mean 111 Pulse Ox 97 Oxygen Delivery Method Positive well nourished and well developed General Appearance ED: well developed; Negative for pallor HEENT HEENT Narrative: No tongue or lip swelling no oral lesions no airway edema or compromise No signs of infection noted in the posterior pharynx Eyes PERRL and EOMs intact bilaterally General Eye ED: Negative for pale conjunctiva or scleral icterus Neck supple Neck Narrative: No nuchal rigidity or meningeal signs No crepitance palpated Chest Wall Chest Narrative: There is a port in place in the right upper chest wall. No surrounding erythema or warmth. No crepitance or fluid noted. No pain on palpation of the port site. Resp normal respiratory effort and clear to auscultation bilaterally Cardio regular rhythm Rate: tachycardic and other Other Details: Tachycardic rate with regular rhythm GI non-tender, non-distended and no masses GI Narrative: Abdomen is soft nontender and nondistended with hypoactive bowel sounds. Patient has colostomy in place draining brown stool without surrounding secondary changes to suggest infection. Auscultation: hypoactive bowel sounds Palpation: soft Extremity normal to inspection Extremity Narrative: No asymmetric edema no pitting edema negative Homans' sign bilaterally Neuro oriented x3, CN's II-XII intact bilaterally and no sensory deficits noted Neuro Narrative: Cranial nerves II through XII are grossly intact there are no focal neurologic deficits No pronator drift no dysmetria no truncal ataxia NIH stroke scale score of 0 Sensorium / Orientation: alert Motor Exam: strength 5/5 throughout Psych Psych Narrative: Patient is a tearful/anxious affect Skin no rashes or lesions noted Skin Narrative: No erythema or warmth to suggest infection no obvious abscess noted General Skin Exam: Negative for jaundice or pallor MDM MDM MDM Narrative Medical decision making narrative: Patient arrived to the ER hypertensive and mildly tachycardic. She does have a history of hypertension. She reported feeling a sensation of burning and pain when the infusion was given into her right chest wall port. There is concern for extravasation leading to tissue necrosis or potential rupture of the vessel or pneumothorax so chest x-ray will be ordered. In order to ensure there is no signs of developing infection patient blood work will be obtained as well to check for leukocytosis or left shift as well as neutropenia. In order to ensure that her abnormal sensation is not due to acute kidney injury or an electrolyte abnormality such as hyponatremia or hyperkalemia basic blood work will be obtained. Patient's labs revealed no clinically significant findings chest x-ray revealed that the port appears to be in good position without signs of extravasation or free air or infection. After IV fluids Toradol Benadryl and Ativan the patient did have improvement of her abnormal sensation. Therefore at this time as there does not appear to be an infectious process or derangement of the chest wall port I do not feel there is need for admission and she is otherwise safe for discharge History & Record Review Discussion w/independent historian: Patient and Friend Lab Data Attestation: I reviewed the patient's lab results. Labs: Laboratory Results - last 24 hr 11/12/23 23:40 WBC 9.9 RBC 4.80 Hgb 12.9 Hct 40.0 MCV 83.3 MCH 26.9 L MCHC 32.3 RDW Std Deviation 53.5 H RDW Coeff of Shabana 18.6 H Plt Count 430 MPV 9.0 Immature Gran % (Auto) 0.300 Neut % (Auto) 77.3 H Lymph % (Auto) 8.0 L [place] % (Auto) 14.0 H Eos % (Auto) 0.0 Baso % (Auto) 0.4 Absolute Neuts (auto) 7.7 Absolute Lymphs (auto) 0.79 L Nucleated RBC % 0.2 Sodium 138 Potassium 4.4 Chloride 106 Carbon Dioxide 22.0 Anion Gap 10 BUN 31 H Creatinine 1.03 H Estim Creat Clear Calc 51.28 Est GFR (MDRD) Af Amer 70 Est GFR (MDRD) Non-Af 58 L BUN/Creatinine Ratio 30.1 H Glucose 123 H Calcium 10.0 Radiography Diagnostic Testing: Clinical Impression(s) from Imaging Studies Chest X-Ray 11/12/23 23:03 IMPRESSION: No radiographic evidence of acute cardiopulmonary disease. Electronically Signed: Keri Amaro MD at 0:11 EDT , Chest x-ray as interpreted by the emergency medicine physician reveals the right chest wall port to be in proper position without acute infiltrate pneumothorax or pleural effusion or free air Discharge Plan Triage Chief Complaint: Wound Check ED Provider: Sawyer Orozco Dx/Rx/DC Orders Clinical Impression: Adverse drug reaction, Rectal cancer, Hypertension, Bipolar disorder Instructions: ED Drug Reaction, Other Primary Care Provider: Phan Dee Referrals: Phan Dee MD [Primary Care Provider] - Activity Restrictions/Additional Instructions: Please inform your oncologist/infusion center not to use report anymore as it does not seem to be functioning properly. Otherwise continue all of your medications as previously directed and return to the ER should you have any further concerns Print Language: Puerto [place]ican Disposition Disposition: Home, Self Care Discharge Date/Time: 11/13/23 00:53
[2023-11-13 00:41] VITALS: BP 156/89; PULSE 102; RESP 18; TEMP 37.1; O2SAT 97
== END 2023-11-13 00:53 | disposition home or self-care (01) ==
PROVIDERS: Emergency Provider Emergency Medicine; PCP Family Medicine; Visit Provider Emergency Medicine
DX: R07.89 Other chest pain (principal); Z93.3 Colostomy status; C20 Malignant neoplasm of rectum; I11.0 Hypertensive heart disease with heart failure; I50.9 Heart failure, unspecified; F31.9 Bipolar disorder, unspecified; T45.1X5A Adverse effect of antineoplastic and immunosuppressive drugs, initial encounter; F17.210 Nicotine dependence, cigarettes, uncomplicated
CPT/HCPCS: 71046; 80048; 85025; 96361; 96374; 96375; 99283; J7030; A4216

== ENCOUNTER 2024-02-06 00:09 | Emergency (ER) | payer MEDICAID, SELFPAY ==
[2024-02-06 00:10] VITALS: BP 210/153; PULSE 83; RESP 18; TEMP 36.6; O2SAT 96; BMI 18.5
--- NOTE | 2024-02-06 00:16 | RAD_ITS ---
INDICATION: chest pain EXAMINATION/TECHNIQUE: X-RAY - XR Chest 1 View COMPARISON: 11/12/23. FINDINGS: LINES/DEVICES: Right chest port tip projects at the superior cavoatrial junction.. LUNGS: Lungs symmetrically hyperexpanded. No consolidation, edema or effusion. No pneumothorax. MEDIASTINUM AND CARDIOVASCULAR STRUCTURES: Cardiac silhouette not enlarged. BONES AND SOFT TISSUES: Unremarkable. Sequela of old left posterior mid rib fractures. Sequela of old left acromioclavicular shoulder separation. RAD/Chest 1 View (Portable) IMPRESSION: Hyperexpansion compatible with chronic obstructive pulmonary disease No radiographic evidence of consolidative airspace disease or florid edema. Electronically Signed: David Noel MD at 1:49 EDT ,
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
[2024-02-06 00:46] LABS: Absolute Lymphocyte Count 2.13 X10^3/uL (0.83-4.51); Absolute Neutrophil Count 16.2 X10^3/uL (2.0-7.7); Basophil# 0.14 X10^3/uL; Basophil% 0.7 % (0-1); Eosinophil# 0.39 X10^3/uL; Eosinophils% 1.9 % (0-5); Hematocrit 44.1 % (37-47); Hemoglobin 13.7 g/dL (12.0-15.0); Lymphocyte # 2.13 X10^3/ul (0.83-4.51); Lymphocyte % 10.3 % (19-41); Mean Corp Hgb Conc 31.1 g/dL (32-36); Mean Corpuscular Hgb 25.2 pg (27.0-32.0); Mean Corpuscular Volume 81.2 fL (81-99); Mean Platelet Vol. 9.6 fl (6.2-12.0); Monocyte# 1.74 X10^3/uL; Monocyte% 8.4 % (0-10); NRBC Flagged by Analyzer 0 % (0-5); Neutrophil # 16.24 X10^3/uL (2.7-7.7); Neutrophil % 78.3 % (47-70); POSITIVE DIFFERENTIAL YES; Platelet Count 653 K/mm3 (150-450); RBC Distribution Width CV 17.2 % (11.6-14.6); RBC Distribution Width SD 48.9 fl (35.1-43.9); Red Blood Count 5.43 M/mm3 (4.2-5.4); White Blood Count 20.7 K/mm3 (4.4-11.0)
[2024-02-06] MEDS: LORazepam 2 MG/ML Syringe 1 MG IV (00:51)
--- NOTE | 2024-02-06 01:00 | ED.RN ---
LEO JONES CALLED FOR PT TO FILE REPORT.
[2024-02-06 01:01] LABS: Anion Gap 7 (5-15); BUN 32 mg/dL (7-18); BUN/Creat Ratio 29.1 RATIO (10-20); Calcium,Total 10.1 mg/dL (8.5-10.1); Chloride 108 mmol/L (98-107); EST Glomerular Filtration Rate 54 mL/min (>60); Est Glom Filt Rate - Afr Amer 65 mL/min (>60); Estimated Creatinine Clearance 48.85 ml/min; Glucose 118 mg/dL (74-106); Potassium 4.2 mmol/L (3.5-5.1); Sodium Level 141 mmol/L (136-145); Troponin-I HS (w/2H Reflex) 17 pg/mL (3.0-54.0)
[2024-02-06 01:06] LABS: Alcohol, Blood (Medical)-Serum < 3.0 mg/dL
[2024-02-06 01:08] LABS: Differential Indicated SCAN CRITERIA MET
[2024-02-06 01:09] VITALS: BP 164/98; PULSE 81; RESP 17; O2SAT 97
[2024-02-06 01:10] LABS: Differential Comment SCANNED
[2024-02-06 01:42] LABS: Color, Urine Yellow (Yellow); Glucose, Dipstick Normal (Normal); Ketone-Dipstick Negative (Negative); Leukocyte Esterase-Dipstick 500 /ul (Negative); Nitrite-Dipstick Negative (Negative); Occult Blood-Urine Negative /ul (Negative); Protein-Dipstick 30 mg/dl (Negative); Specific Gravity, Urine 1.025 (1.002-1.030); Urine Bilirubin Dipstick Negative (Negative); Urine Clarity Clear (Clear); Urine Urobilinogen Normal (Normal)
[2024-02-06 02:00] VITALS: BP 164/112; PULSE 79; RESP 20; O2SAT 95
[2024-02-06 02:05] LABS: Amphetamine Urine VISTA NEGATIVE (<1000 ng/mL); Barbiturate Urine VISTA NEGATIVE (< 200 ng/mL); Benzodiazepine Urine VISTA NEGATIVE (< 200 ng/mL); Cocaine Urine VISTA NEGATIVE (< 300 ng/mL); Ecstacy Urine VISTA NEGATIVE (< 500 ng/mL); Methadone Urine VISTA NEGATIVE (< 300 ng/mL); PCP Urine VISTA NEGATIVE (< 25 ng/mL); THC Urine VISTA NEGATIVE (< 50 ng/mL); Vista UDS pH Range 6
[2024-02-06 02:06] LABS: Bacteria 1+ /hpf (None Seen); Mucous, Urine 1+ /hpf (<or=2+); Red Blood Cells-Urine 0-5 SEEN /hpf (0-5); Squamous Epithelial Cells - UA 5-10 SEEN /hpf (5-10); White Blood Cells 10-25 SEEN /hpf (0-5)
[2024-02-06 02:33] LABS: Reflex Troponin-HS? (from REC) Y
[2024-02-06 03:00] VITALS: BP 191/104; PULSE 83; RESP 18; O2SAT 97
[2024-02-06 03:09] LABS: Troponin-I HS 19 pg/mL (3.0-54.0)
[2024-02-06 03:29] VITALS: BP 160/103; PULSE 84; RESP 16; TEMP 36.7; O2SAT 96
[2024-02-06 13:21] LABS: Pathologist Review Reviewed
== END 2024-02-06 03:36 | disposition home or self-care (01) ==
PROVIDERS: Emergency Provider Emergency Medicine; PCP Family Medicine; Visit Provider Emergency Medicine
DX: R07.9 Chest pain, unspecified (principal); I50.9 Heart failure, unspecified; F12.90 Cannabis use, unspecified, uncomplicated; F41.9 Anxiety disorder, unspecified; F17.210 Nicotine dependence, cigarettes, uncomplicated; I25.2 Old myocardial infarction
CPT/HCPCS: A4216; 71045; 80048; 80307; 81001; 82077; 84484; 85025; 93005; 96374; 96376; 99283

== ENCOUNTER 2024-03-25 11:35 | Emergency (ER) | payer MEDICAID, SELFPAY ==
[2024-03-25 11:36] VITALS: BP 154/95; PULSE 80; RESP 19; TEMP 36.9; O2SAT 97; BMI 18.7
[2024-03-25 11:40] VITALS: BP 127/83; PULSE 67; RESP 18; TEMP 36.6; O2SAT 99
--- NOTE | 2024-03-25 12:02 | ED.RN ---
Pt. states concern for the cancer eating her ass. Dr. Thomas at bedside with this Rn to assess pt. bottom. Pt. states well are you going to look up my rectum to see the cancer eating inside my ass, my asshole just looks like a dry asshole.
--- NOTE | 2024-03-25 12:04 | CT_ITS ---
EXAM: CT Abdomen And Pelvis W/ Contrast Injection HISTORY: abdominal pain OSTOMY PAIN W/ FOUL SMELL HX-COLORECTAL CA TECHNIQUE: Routine protocol CT abdomen pelvis. IV Contrast: IV 100mL Isovue-370 . Oral Contrast: without. Sagittal and coronal images were reconstructed. RADIATION DOSAGE (If Supplied By Facility): CTDIvol = ( 15.98 ) mGy, DLP = ( 398.13 ) mGycm Individualized dose optimization techniques were used for this CT. COMPARISON: CT abdomen pelvis 09/13/2023. LIMITATIONS: None. FINDINGS: LOWER CHEST: Reticular opacities in the lung bases likely scarring. LIVER: Unremarkable. GALLBLADDER/BILE DUCTS: Unremarkable. PANCREAS: Unremarkable. SPLEEN: Not identified. At least 2 masses in the region likely splenules or splenic remnant, not significantly changed. ADRENAL GLANDS: Unremarkable. KIDNEYS / URETERS: Unremarkable. Small cyst left kidney, no follow-up needed. BOWEL / MESENTERY: Colostomy in the left midabdomen. There is suggestion of wall thickening of the transverse colon just proximal to the ostomy, which may be exaggerated by suboptimal distention. No localized collection in the region. No bowel obstruction. APPENDIX: Identified and normal. No evidence of acute appendicitis. PERITONEUM: No free air. No free fluid. VESSELS: Abdominal aorta is normal caliber. Arterial calcifications. Marked luminal narrowing of the proximal SMA with eccentric mural plaque, appears increased compared to prior, patent distally. RETROPERITONEUM: Unremarkable. REPRODUCTIVE ORGANS: Uterus not identified.. BLADDER: Unremarkable. ABDOMINAL WALL: Unremarkable. BONES: No acute abnormality. OTHER: None. CT/Abdomen/Pelvis W IV Cont ONLY IMPRESSION: 1. Suggestion of wall thickening transverse colon immediately proximal to the ostomy site, possibly mild acute colitis. 2. No bowel obstruction. 3. 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 No occlusion. Electronically Signed: Marsha Caballero MD at 14:18 EST ,
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
[2024-03-25 12:36] LABS: Absolute Lymphocyte Count 1.97 X10^3/uL (0.83-4.51); Absolute Neutrophil Count 4.3 X10^3/uL (2.0-7.7); Basophil# 0.07 X10^3/uL; Basophil% 0.9 % (0-1); Eosinophil# 0.34 X10^3/uL; Eosinophils% 4.4 % (0-5); Hematocrit 40.3 % (37-47); Hemoglobin 12.7 g/dL (12.0-15.0); Lymphocyte # 1.97 X10^3/ul (0.83-4.51); Lymphocyte % 25.3 % (19-41); Mean Corp Hgb Conc 31.5 g/dL (32-36); Mean Corpuscular Volume 82.6 fL (81-99); Mean Platelet Vol. 8.9 fl (6.2-12.0); Monocyte# 1.12 X10^3/uL; Monocyte% 14.4 % (0-10); NRBC Flagged by Analyzer 0 % (0-5); Neutrophil # 4.28 X10^3/uL (2.7-7.7); Neutrophil % 54.7 % (47-70); Platelet Count 442 K/mm3 (150-450); RBC Distribution Width CV 19.1 % (11.6-14.6); RBC Distribution Width SD 55.3 fl (35.1-43.9); Red Blood Count 4.88 M/mm3 (4.2-5.4); White Blood Count 7.8 K/mm3 (4.4-11.0)
[2024-03-25 12:40] VITALS: BP 140/81; PULSE 70; RESP 16; TEMP 36.7; O2SAT 97
[2024-03-25 12:43] LABS: Anion Gap 4 (5-15); BUN 39 mg/dL (7-18); BUN/Creat Ratio 37.9 RATIO (10-20); Calcium,Total 9.4 mg/dL (8.5-10.1); Chloride 111 mmol/L (98-107); Creatinine, Serum 1.03 mg/dL (0.55-1.02); EST Glomerular Filtration Rate 58 mL/min (>60); Est Glom Filt Rate - Afr Amer 70 mL/min (>60); Estimated Creatinine Clearance 52.72 ml/min; Glucose 101 mg/dL (74-106); Potassium 4.7 mmol/L (3.5-5.1); Sodium Level 138 mmol/L (136-145)
[2024-03-25 13:36] VITALS: BP 135/81; PULSE 66; RESP 16; O2SAT 99
[2024-03-25 13:57] LABS: Bacteria 0 SEEN /hpf (None Seen); Color, Urine Yellow (Yellow); Glucose, Dipstick Normal (Normal); Ketone-Dipstick Negative (Negative); Leukocyte Esterase-Dipstick 100 /ul (Negative); Mucous, Urine 0 SEEN /hpf (<or=2+); Nitrite-Dipstick Negative (Negative); Occult Blood-Urine 10 /ul (Negative); Protein-Dipstick 15 mg/dl (Negative); Red Blood Cells-Urine 0 SEEN /hpf (0-5); Specific Gravity, Urine 1.015 (1.002-1.030); Urine Bilirubin Dipstick Negative (Negative); Urine Clarity Clear (Clear); Urine Urobilinogen Normal (Normal)
[2024-03-25 14:02] LABS: Squamous Epithelial Cells - UA 0-5 SEEN /hpf (5-10); White Blood Cells 0-5 SEEN /hpf (0-5)
[2024-03-25] MEDS: traMADol 50 MG Tablet PO (14:31)
== END 2024-03-25 15:06 | disposition home or self-care (01) ==
PROVIDERS: Emergency Provider Emergency Medicine; PCP Family Medicine; Visit Provider Emergency Medicine
DX: R10.9 Unspecified abdominal pain (principal); C19 Malignant neoplasm of rectosigmoid junction; C20 Malignant neoplasm of rectum; I50.9 Heart failure, unspecified; F31.9 Bipolar disorder, unspecified; F17.210 Nicotine dependence, cigarettes, uncomplicated
CPT/HCPCS: 74177; 80048; 81001; 85025; 99284; Q9967